=== PATIENT | female | born 1955 | race Caucasian/White ===

== ENCOUNTER → 2020-08-13 13:26 | Outpatient (CLI) | payer MEDICARE, OTHER, SELFPAY ==
--- NOTE | 2020-08-13 13:37 | RAD_ITS ---
STUDY: X-RAY - PELVIS AND RIGHT HIP REASON FOR EXAM: Right hip pain for more than 3 months status post fall. TECHNIQUE: 2 views of the pelvis and hip. COMPARISON: None. FINDINGS: There is a small pelvic phlebolith. Normal bilateral iliac wings, sacroiliac joints and visualized sacrum. Normal bilateral superior and inferior pubic rami. Normal pubic symphysis. Normal bilateral ischial tuberosities. Normal visualized femoral head. Normal acetabulum. Normal hip joint. RAD/HIP, UNI W/ Pelvis 2-3 Views IMPRESSION: Normal x-ray examination of the pelvis and right hip. Electronically Signed: Clifford Hamilton MD at 14:25 EDT Tel , Service support ,
== END ==
PROVIDERS: PCP Family Medicine; Visit Provider Family Medicine
DX: M25.551 Pain in right hip (principal); G89.29 Other chronic pain
CPT/HCPCS: 73502

== ENCOUNTER → 2021-01-28 15:15 | Outpatient (CLI) | payer MEDICARE, OTHER, SELFPAY ==
--- NOTE | 2021-01-28 15:18 | BI_ITS ---
MAMMOGRAPHY - BILATERAL SCREENING REASON FOR EXAM: Female, 65 years old. Routine annual screening examination. PERTINENT HISTORY: Aunt with breast cancer. TECHNIQUE: Digital bilateral breast wagner (3D mammographic acquisition) in the CC and MLO projections. 2-D mediolateral oblique (MLO) and craniocaudad (CC) views of both breasts were obtained. CAD: Full Field Digital Mammography with Computer Added Detection was performed. COMPARISON: Comparison is made with prior abdomen examination dated 11/29/2019. FINDINGS: Breast Composition: There are scattered areas of fibroglandular density. There are no dominant masses or suspicious calcifications. Asymmetry of breast tissue were more breast tissue is seen in the upper outer aspect of the left breast as compared to the right side. Stable well-defined 3 mm nodule in the upper lateral aspect of the right breast. No other significant abnormalities are identified. There has been no significant change since the prior study. BI/SCRN MAMM (CAD)W/WAGNER BILAT IMPRESSION: Stable bilateral screening mammogram. Yearly follow-up mammogram recommended. (A) ASSESSMENT CATEGORY: BIRADS Category 2: Benign. A letter regarding these results will be sent to the patient by the facility within 30 days. Approximately 10% of breast cancers are not detected by mammography. A normal mammogram should not delay biopsy of a clinically suspicious abnormality. [id number] Electronically Signed: Dav Barnett MD at 11:26 EDT , Service support ,
--- NOTE | 2021-01-28 15:21 | BD_ITS ---
STUDY: DUAL ENERGY X-RAY ABSORPTIOMETRY / DXA REASON FOR EXAM: Female, 65 years old. [id number] TECHNIQUE: Bone Mineral Density (BMD) measurements of lumbar spine and bilateral hips were obtained. COMPARISON: None. FINDINGS: Lumbar Spine (L1-L4): g/cm2 (1.105) / T-score (1.1) / Z-score (2.8) Findings are suggestive of normal bone density with a low fracture risk. Left Femur Total: g/cm2 (0.987) / T-score (0.4) / Z-score (1.6) Left Femoral Neck: g/cm2 (0.745) / T-score (-0.9) / Z-score (0.6) Right Femur Total: g/cm2 (0.997) / T-score (0.4) / Z-score (1.7) Right Femoral Neck: g/cm2 (0.781) / T-score (-0.6) / Z-score (0.9) BD/Dexa Bone Density Study IMPRESSION: The patient is considered normal as outlined below according to [employer] Organization (WHO) criteria with a low fracture risk. Reference Information: The T-score is the number of standard deviations above or below the standard which is normal for young adults at their peak bone mineral density. The World Health Organization (WHO) interprets the T-scores as follows: Above -1 Normal bone density Between -1 and -2.5 Osteopenia Equal to / or below -2.5 Osteoporosis As a practical clinical guideline, osteopenia may be graded as follows: Mild -1 through -1.5 Moderate -1.6 through -2.0 Severe -2.1 through -2.4 The Z-score is the number of standard deviations above or below age-matched controls. A Z-score of less than -1.5 would be considered abnormal. References: 1. NIH Osteoporosis and Related Bone Diseases www osteo.org 2. International Society for Clinical Densitometry www iscd.org 3. National Osteoporosis Foundation www nof.org Electronically Signed: Dav Barnett MD at 9:43 EDT , Service support ,
== END ==
PROVIDERS: PCP Family Medicine; Referring Provider Registered Nurse; Visit Provider Registered Nurse
DX: Z78.0 Asymptomatic menopausal state (principal); Z12.31 Encounter for screening mammogram for malignant neoplasm of breast
CPT/HCPCS: 77063; 77067; 77080

== ENCOUNTER → 2022-03-22 | Outpatient (CLI) | payer MEDICARE, OTHER, SELFPAY ==
--- NOTE | 2022-03-22 14:38 | BI_ITS ---
MAMMOGRAPHY - BILATERAL SCREENING REASON FOR EXAM: Female, 66 years old. Routine annual screening examination. PERTINENT HISTORY: Aunt with breast cancer. TECHNIQUE: Digital bilateral breast wagner (3D mammographic acquisition) in the CC and MLO projections. 2-D mediolateral oblique (MLO) and craniocaudad (CC) views of both breasts were obtained. CAD: Full Field Digital Mammography with Computer Added Detection was performed. COMPARISON: Comparison is made with prior study dated 01/28/2021. FINDINGS: Breast Composition: There are scattered areas of fibroglandular density. There are no dominant masses or suspicious calcifications. Stable asymmetric breast tissue with more breast tissue is seen in the upper outer quadrant of the left breast as compared to the right side. Stable well-defined 3 mm nodule in the upper lateral aspect of the right breast. No other significant abnormalities are identified. There has been no significant change since the prior study. BI/SCRN MAMM (CAD)W/WAGNER BILAT IMPRESSION: Stable bilateral screening mammogram. Yearly follow-up mammogram recommended. (A) ASSESSMENT CATEGORY: BIRADS Category 2: Benign. A letter regarding these results will be sent to the patient by the facility within 30 days. Approximately 10% of breast cancers are not detected by mammography. A normal mammogram should not delay biopsy of a clinically suspicious abnormality. [id number] Electronically Signed: Dav Barnett MD at 15:27 EDT ,
== END | disposition home or self-care (01) ==
PROVIDERS: PCP Family Medicine; Visit Provider Registered Nurse
DX: Z12.31 Encounter for screening mammogram for malignant neoplasm of breast (principal)
CPT/HCPCS: 77063; 77067

== ENCOUNTER → 2023-03-24 | Outpatient (CLI) | payer MEDICARE, OTHER, SELFPAY ==
--- NOTE | 2023-03-24 14:00 | BI_ITS ---
MAMMOGRAPHY - BILATERAL SCREENING REASON FOR EXAM: Female, 67 years old. Routine annual screening examination. PERTINENT HISTORY: Aunt with breast cancer. TECHNIQUE: Digital bilateral breast wagner (3D mammographic acquisition) in the CC and MLO projections. 2-D mediolateral oblique (MLO) and craniocaudad (CC) views of both breasts were obtained. CAD: Full Field Digital Mammography with Computer Added Detection was performed. COMPARISON: Comparison is made with prior study March 22, 2022 and January 28, 2021. FINDINGS: Breast Composition: There are scattered areas of fibroglandular density. There are no dominant masses or suspicious calcifications. Stable asymmetry of breast tissue with more breast tissue is seen in the upper-outer quadrant of the left breast as compared to the right side. Stable 3 mm well-defined nodule in the upper lateral aspect of the right breast. Stable small benign-appearing bilateral axillary lymph nodes. No other significant abnormalities are identified. There has been no significant change since the prior study. BI/SCRN MAMM (CAD)W/WAGNER BILAT IMPRESSION: Stable bilateral screening mammogram. Yearly follow-up mammogram recommended. (A) ASSESSMENT CATEGORY: BIRADS Category 2: Benign. A letter regarding these results will be sent to the patient by the facility within 30 days. Approximately 10% of breast cancers are not detected by mammography. A normal mammogram should not delay biopsy of a clinically suspicious abnormality. [id number] Electronically Signed: Dav Barnett MD at 14:55 EDT ,
== END | disposition home or self-care (01) ==
PROVIDERS: PCP Family Medicine; Referring Provider Registered Nurse; Visit Provider Registered Nurse
DX: Z12.31 Encounter for screening mammogram for malignant neoplasm of breast (principal)
CPT/HCPCS: 77063; 77067

== ENCOUNTER → 2024-03-25 | Outpatient (CLI) | payer MEDICARE, OTHER, SELFPAY ==
--- NOTE | 2024-03-25 15:47 | BI_ITS ---
MAMMOGRAPHY - BILATERAL SCREENING REASON FOR EXAM: Female, 68 years old. Routine annual screening examination. PERTINENT HISTORY: Aunt with breast cancer. TECHNIQUE: Digital bilateral breast wagner (3D mammographic acquisition) in the CC and MLO projections. 2-D mediolateral oblique (MLO) and craniocaudad (CC) views of both breasts were obtained. CAD: Full Field Digital Mammography with Computer Added Detection was performed. COMPARISON: Comparison is made with prior examination dated March 24, 2023 and March 22, 2022. FINDINGS: Breast Composition: There are scattered areas of fibroglandular density. There are no dominant masses or suspicious calcifications. Stable asymmetry of breast tissue were more breast tissue is seen in the upper-outer quadrant of the left breast as compared to the right side. Stable 3 mm well-defined nodule in the upper lateral aspect of the right breast. Stable bilateral fat containing axillary lymph nodes. No other significant abnormalities are identified. There has been no significant change since the prior study. BI/SCRN MAMM (CAD)W/WAGNER BILAT IMPRESSION: Stable bilateral screening mammogram. Yearly follow-up mammogram recommended. (A) ASSESSMENT CATEGORY: BIRADS Category 2: Benign. A letter regarding these results will be sent to the patient by the facility within 30 days. Approximately 10% of breast cancers are not detected by mammography. A normal mammogram should not delay biopsy of a clinically suspicious abnormality. [id number] Electronically Signed: Dav Barnett MD at 11:00 EDT ,
--- OUTSIDE RECORDS SUMMARY | 2024-03-25 19:47 | XMS RPT_ITS | CCD ---
Author Organization [facility] CliniSytn Care Team Providers Care Clinical Care Coordinator Name Role Phone Eder Sesay MD Primary Care Provider EDER SESAY Primary Care Unavailable PERLA JOHNSTON Attending Unavailable QUINTON BLISS Attending Unavailable SHAMA, EDER Primary Care Unavailable QUINTON BLISS Attending Unavailable SHAMA, EDER Primary Care Unavailable SHAMA, EDER Primary Care Unavailable LILA LINK Attending Unavailable QUINTON BLISS Attending Unavailable SHAMA, EDER Primary Care Unavailable SHAMA, EDER Primary Care Unavailable VINICIO GÓMEZ Referring Unavailable EDER SESAY Primary Care Unavailable VINICIO GÓMEZ Attending Unavailable QUINTON BLISS Referring Unavailable JIAN ACEVEDO Attending Unavailable SHAMA, EDER Primary Care Unavailable MISBAH WATERS Admitting Unavailable MISBAH WATERS Attending Unavailable SHAMA, EDER Primary Care Unavailable SHAMA, EDER Primary Care Unavailable PERLA JOHNSTON Attending Unavailable Medications Current Medications Medication Drug Class(es) Dates Sig (Normalized) Sig (Original) acetaminophen 500 mg / diphenhydrAMINE hydrochloride 25 mg oral tablet (20 sources) Histamine-1 Receptor Antagonist take 25-500 mg by mouth once as needed diphenhydrAMINE- acetaminophen (Tylenol PM Extra Strength) 25-500 MG per tablet Take 1 tablet by mouth every 24 hours as needed. Active amoxicillin 875 mg / clavulanate 125 mg oral tablet (8 sources) Penicillin-class Antibacterial Start: 07-07-2023 End: 07-17-2023 take 1 tablet by mouth every twelve hours amoxicillin-clav ulanate (Augmentin) 875-125 MG tablet Take 1 tablet by mouth in the morning and 1 tablet in the evening. Do all this for 10 days. 20 tablet 0 07/07/2023 07/17/2023 Active Start: 06-12-2023 End: 06-19-2023 take 1 tablet by mouth twice daily amoxicillin-clavulanate (Augmentin) 875-125 MG tablet Indications: URI with cough and congestion Take 1 tablet by mouth 2 times daily for 7 days. 14 tablet 0 06/12/2023 06/19/2023 aspirin 81 mg delayed release oral tablet (20 sources) Platelet Aggregation Inhibitor, Nonsteroidal Anti-inflammatory Drug take 1 tablet by mouth in the morning aspirin 81 MG EC tablet Take 81 mg by mouth in the morning. Active cholecalciferol 0.05 mg oral capsule (20 sources) Vitamin D cholecalciferol (Vitamin D-3) 50 MCG (1999 UT) capsule Take by mouth. Active dicyclomine hydrochloride 20 mg oral tablet (3 sources) Anticholinergic Start: 2023 End: 2023 take 1 tablet by mouth three times daily as needed for pain dicyclomine (Bentyl) 20 MG tablet Take 1 tablet (20 mg) by mouth 3 times daily as needed (Abdominal pain) for up to 10 days. 20 tablet 0 07/07/2023 07/17/2023 Active docosahexaenoic acid 120 mg / eicosapentaenoic acid 180 mg oral capsule (20 sources) omega-3 (Fish Oi l) 1000 MG capsule Take 3,000 mg by mouth. Active ipratropium bromide 0.042 mg/actuat metered dose nasal spray (20 sources) Anticholinergic Start: 2022 End: 2024 take 2 spray(s) nasal route three times daily ipratropium (Atrovent) 0.06 % nasal spray Indications: Rhinorrhea associated with the Common Cold Administer 2 sprays into each nostril 3 times daily for 7 days. 15 mL 06/01/2022 03/18/2025 Active loratadine 10 mg oral tablet (20 sources) take 1 tablet by mouth in the morning loratadine (Claritin) 10 MG tablet Take 10 mg by mouth in the morning. Active Sodium Sulfate-Mag Sulfate-KCl (Sutab) 5904-416-529 MG tablet (20 sources) Start: 2023 Sodium Sulfate-Mag Sulfate-KCl (Sutab) 8502-836-849 MG tablet Indications: History of colon polyps Please take as directed by GI office for colonoscopy prep. 24 tablet 06/12/2023 Active Start: 06-12-2023 Sodium Sulfate -Mag Sulfate-KCl (Sutab) 8787-675-543 MG tablet Indications: History of colon polyps Please take as directed by GI office for colonoscopy prep. 24 tablet 0 06/12/2023 Active vitamin b12 0.1 mg oral loze nge (20 sources) Vitamin B12 Cyanocobalamin 1 00 MCG lozenge Take by mouth. Active Completed/Discontinued Medications Medication Drug Class(es) Dates Sig (Normalized) Sig (Original) brompheniramine maleate 0.4 mg/ml / dextromethorphan hydrobromide 2 mg/ml / pseudoephedrine hydrochloride 6 mg/ml oral solution (4 sources) alpha-Adrenergic Agonist, Uncompetitive U-gtoxmn-X-aspartat e Receptor Antagonist, Sigma-1 Agonist Start: 06-12-2023 End: 06-22-2023 take 5 mL by mouth three times daily as needed for cough brompheniramine-p seudoephedrine-DM 30-2-10 MG/5ML syrup Indications: URI with cough and congestion Take 5 mL by mouth 3 times daily as needed for cough or congestion for up to 10 days. 120 mL 0 06/12/2023 06/22/2023 iopamidol (Isovue-370) 76 % injection 75 mL (2 sources) Start: 07-07-2023 End: 07-07-2023 iopamidol (Isovue-370) 76 % injection 75 mL losartan potassium 50 mg oral tablet (20 sources) Angiotensin 2 Receptor Sayra Start: 08-19-2022 End: 03-18-2024 take 1 tablet by mouth once daily losartan (Cozaar) 50 MG tablet Indications: Primary hypertension Take 1 tablet (50 mg) by mouth daily. 90 tablet 1 09/13/2023 03/18/2024 Discontinued (Reorder) Start: 01-10-2022 take 1 tablet by helen th in the morning losartan (Cozaar) 50 MG tablet Take 1 tablet by mouth in the morning. 0 01/10/2022 Active naproxen sodium 220 mg oral capsule (20 sources) Nonsteroidal Anti-inflammatory Drug Start: 09-13-2023 End: 03-18-2024 take 1 capsule by mouth twice daily as needed Naproxen Sodium 220 MG capsule Indications: Arthritis of left knee Take 220 mg by mouth 2 times daily as needed (arthralgias). 180 capsule 1 09/13/2023 03/18/2024 Discontinued (Reorder) omeprazole 40 mg delayed release oral capsule (20 sources) Proton Pump Inhibitor Start: 03-13-2023 End: 03-18-2024 take 1 capsule by mouth once daily before breakfast omeprazole (PriLOSEC) [address] capsule Indications: Gastroesophageal reflux disease, unspecified whether esophagitis present Take 1 capsule (40 mg) by mouth every morning (before breakfast). Do not crush or chew. 90 capsule 1 09/13/2023 03/18/2024 Discontinued (Reorder) rosuvastatin calcium 5 mg oral tablet (20 sources) HMG-CoA Reductase Inhibitor Start: 08-19-2022 End: 03-18-2024 take 1 tablet by mouth once daily rosuvastatin (Crestor) 5 MG tablet Indications: Hypercholesterolemia Take 1 tablet (5 mg) by mouth daily. 90 tablet 1 09/13/2023 03/18/2024 Discontinued (Reorder) Start: 01-10-2022 take 1 tablet by helen th in the morning rosuvastatin (Crestor) 5 MG tablet Take 1 tablet by mouth in the morning. 0 01/10/2022 Active 50 ml sodium chloride 9 mg/m l injection (2 sources) Start: 07-07-2023 End: 07-07-2023 sodium chloride 0.9 % bolus 1,000 mL Problems Active Problems Problem Classification Problem Date Documented Date Episodic/Chronic Administrative/socia l admission (2 sources) Persons encountering health services in other specified circumstances; Translations: [Persons encountering health services in other specified circumstances] Onset: 01-19-2024 Episodic Disorders of lipid metabolism (20 sources) Hyperlipidemia; Translations: [Hyperlipidemia, unspecified] Onset: 01-03-2019 Chronic Diverticulosis and diverticulitis (20 sources) Diverticulitis; Translations: [Diverticulitis of intestine, part unspecified, without perforation or abscess without bleeding] Onset: 07-11-2023 Resolved: 09-13-2023 07-07-2023 Chronic Esophageal disorders (8 sources) Gastroesophageal reflux disease; Translations: [Gastro-esophageal reflux disease without esophagitis] Onset: 03-18-2024 03-13-2023 Chronic Essential hypertension (20 sources) Essential hypertension; Translations: [Essential (primary) hypertension] Onset: 01-03-2019 Chronic Immunizations and screening for infectious disease (1 source) Needs influenza immunization; Translations: [Encounter for immunization] 03-13-2023 Episodic Neoplasms of unspecified nature or uncertain behavior (3 sources) Neoplasm of uncertain behavior of skin; Translations: [Neoplasm of uncertain behavior of skin] Onset: 03-13-2024 03-13-2024 Episodic Osteoarthritis (20 sources) Arthritis of left knee; Translations: [Unilateral primary osteoarthritis, left knee] Onset: 08-12-2020 03-11-2022 Chronic Other and unspecified benign neoplasm (2 sources) Senile angioma; Translations: [Hemangioma of skin and subcutaneous tissue] 01-12-2023 Episodic Other and unspecified benign neoplasm (2 sources) Multiple benign melanocytic nevi ; Translations: [Melanocytic nevi of right upper limb, including shoulder] 01-12-2023 Episodic Other and unspecified benign neoplasm (3 sources) History of polyp of colon; Translations: [Personal history of colonic polyps] 06-12-2023 Episodic Other and unspecified benign neoplasm (1 source) Hemangioma of skin; Translations: [Hemangioma of skin and subcutaneous tissue] 01-19-2024 Episodic Other and unspecified benign neoplasm (2 sources) Melanocytic nevi of right upper limb, including shoulder; Translations: [Melanocytic nevi of right upper limb, including shoulder] Onset: 01-19-2024 Episodic Other and unspecified benign neoplasm (2 sources) Melanocytic nevi of trunk; Translations: [Melanocytic nevi of trunk] Onset: 01-19-2024 Episodic Other and unspecified benign neoplasm (2 sources) Melanocytic nevi of left upper limb, including shoulder; Translations: [Melanocytic nevi of left upper limb, including shoulder] Onset: 01-19-2024 Episodic Other and unspecified benign neoplasm (2 sources) Melanocytic nevi of right lower limb, including hip; Translations: [Melanocytic nevi of right lower limb, including hip] Onset: 01-19-2024 Episodic Other and unspecified benign neoplasm (2 sources) Melanocytic nevi of left lower limb, including hip; Translations: [Melanocytic nevi of left lower limb, including hip] Onset: 01-19-2024 Episodic Other and unspecified benign neoplasm (2 sources) Hemangioma of skin and subcutaneous tissue; Translations: [Hemangioma of skin and subcutaneous tissue] Onset: 01-19-2024 Episodic Other connective tissue disease (1 source) Cramp in lower limb; Translations: [Sleep related leg cramps] 03-13-2023 Chronic Other non-epithelial cancer of skin (5 sources) History of malignant neoplasm of skin excluding melanoma; Translations: [Personal history of other malignant neoplasm of skin] Onset: 01-19-2024 01-12-2023 Episodic Other nutritional; endocrine; and metabolic disorders (4 sources) Obesity; Translations: [Other obesity due to excess calories] Onset: 02-17-2021 Chronic Other nutritional; endocrine; and metabolic disorders (20 sources) Obesity caused by energy imbalance; Translations: [Other obesity due to excess calories] Onset: 02-17-2021 03-13-2023 Chronic Other nutritional; endocrine; and metabolic disorders (2 sources) Other obesity due to excess calories; Translations: [Other obesity due to excess calories] Onset: 03-18-2024 Chronic Other nutritional; endocrine; and metabolic disorders (2 sources) Body mass index (BMI) 36.0-36.9, adult; Translations: [Body mass index (BMI) 36.0-36.9, adult] Onset: 03-18-2024 Chronic Other screening for suspected conditions (not mental disorders or infectious disease) (10 sources) Patient encounter status; Translations: [Encounter for screening for malignant neoplasm of colon] Onset: 03-18-2024 03-13-2023 Episodic Other skin disorders (1 source) Lesion of skin of nose; Translations: [Disorder of the skin and subcutaneous tissue, unspecified] Episodic Other skin disorders (3 sources) Seborrheic keratosis; Translations: [Other seborrheic keratosis] 01-12-2023 Episodic Other skin disorders (1 source) Solar lentigo; Translations: [Other melanin hyperpigmentation] 01-19-2024 Episodic Other skin disorders (1 source) Skin lesion; Translations: [Disorder of the skin and subcutaneous tissue, unspecified] 01-19-2024 Episodic Other skin disorders (2 sources) Other seborrheic keratosis; Translations: [Other seborrheic keratosis] Onset: 01-19-2024 Episodic Other skin disorders (2 sources) Other melanin hyperpigmentation; Translations: [Other melanin hyperpigmentation] Onset: 01-19-2024 Episodic Other skin disorders (2 sources) Disorder of the skin and subcutaneous tissue, unspecified; Translations: [Disorder of the skin and subcutaneous tissue, unspecified] Onset: 01-19-2024 Episodic Unclassified (1 source) Obesity, class 2; Translations: [Obesity, class 2] Onset: 03-18-2024 Past or Other Problems Problem Classification Problem Date Documented Da te Episodic/Chronic Abdominal hernia (5 sources) Hiatal hernia; Translations: [Diaphragmatic hernia without obstruction or gangrene] Onset: 09-14-2023 06-12-2023 Episodic Abdominal pain (4 sources) Lower abdominal pain; Translations: [Lower abdominal pain, unspecified] Onset: 07-07-2023 07-07-2023 Episodic Mood disorders (20 sources) Mood disorders Onset: 03-13-2023 03-13-2023 Nausea and vomiting (20 sources) Nausea and vomiting; Translations: [Nausea with vomiting, unspecified] Onset: 06-01-2022 Resolved: 08-17-2022 08-17-2022 Episodic Other and unspecified benign neoplasm (2 sources) Personal history of colonic polyps; Translations: [Personal history of colonic polyps] Onset: 06-12-2023 Episodic Other upper respiratory infections (20 sources) Viral upper respiratory tract infection; Translations: [Acute upper respiratory infection, unspecified] Onset: 06-01-2022 Resolved: 03-10-2023 08-17-2022 Episodic Unclassified (1 source) Obesity, class 2; Translations: [Obesity, class 2] Onset: 03-18-2024 Results Test Name Value Interpretation Reference Range Facility 36on 03-22-2024 36 Message released to patient as written. Pap smear negative, HPV testing still pending Patient's further questions if applicable: none Were all questions from office addressed or relayed to the patient from encounter: Yes Normal [facility] 36on 03-18-2024 36 Lab orders signed. Normal [facility] 36 Patient stopped in asking if she could have her labs done now rather than waiting until this afternoon, since they are fasting. Orders pended. Normal [facility] Office Visiton 03-18-2024 Follow-up visit [id number] Shayla Jara 1955 F Date Provider Department Center 03/18/2024 [id number] HALE [facility] Family History Problem Relation Age of Onset Cervical cancer Mother Arthritis Mother Stroke Mother Cancer Brother Diabetes Mother's Sister Breast cancer Mother's Sister Heart disease Mother's Sister Crohn's disease Neg Hx Colon cancer Neg Hx Family Status - Relation Status Age at Mother Brother Other Notes: leukemia Mother's Sister Neg Hx Level of Service:G0101 HI CA SCREEN;PELVIC/BREAST EXAM Reason for Visit and Comments: Gynecologic Exam [50] Health Maintenance [872] - Derm- already sees a wholesale representative Flu- had done (02/26/2024) 7th Covid- had done 02/26/2024 Mammo-agrees [facility] Follow-up visit [id number] Shayla Jara 1955 F Date Provider Department Center 03/18/2024 [id number] HALE [facility] Family History Problem Relation Age of Onset Cervical cancer Mother Arthritis Mother Stroke Mother Cancer Brother Diabetes Mother's Sister Breast cancer Mother's Sister Heart disease Mother's Sister Crohn's disease Neg Hx Colon cancer Neg Hx Family Status - Relation Status Age at Mother Brother Other Notes: leukemia Mother's Sister Neg Hx Level of Service:G0439 HI PPPS, SUBSEQ VISIT Reason for Visit and Comments: Medicare Annual Wellness Visit Subsequent [677] Health Maintenance [872] - Derm- already sees a wholesale representative Flu- had done (02/26/2024) 7th Covid- had done 02/26/2024 Mammo-agrees Blood Work [[id number]] - Completed this morning Normal [facility] Progress Noteon 03-18-2024 Progress Note [facility] [address] [facility] [address] [facility] [address] Dept: [phone] Dept Loc: [phone] HPI: Shayla Jara is a 68 y.o. female who presents today for her medical conditions/complaints as noted below. Shayla Jara is c/o of Gynecologic Exam and Health Maintenance (Derm- already sees a wholesale representative /Flu- had done (02/26/2024) /7th Covid- had done 02/26/2024/Mammo-agrees) HPI- Shayla Jara presents today for her well female examination. No longer has menstrual cycles- has not had one since her early 50's. States her mother had cervical cancer so she wants to continue receiving pap smears for screening even though she is older than 65. Denies current concerns or worries. Health Maintenance: Performs self breast examinations; denies nipple discharge, nodules, or discoloration. Positive family history of breast cancer- maternal aunt. Last mammogram was - normal findings. Last pap smear was 03/13/23- normal findings. Declines screening for STI's. See ROS for additional information. Past Medical History: Diagnosis Date Acute non-recurrent frontal sinusitis 09/21/2022 Arthritis Basal cell carcinoma 2016 Diverticulitis 07/07/2023 Hiatal hernia History of blood clot in brain 1957 Hyperlipidemia Hypertension Nausea and vomiting 06/01/2022 Viral URI with cough 06/01/2022 Past Surgical History: Procedure Laterality Date COLONOSCOPY N/A 09/14/2023 Performed by Misbah Waters at [facility] ENDOSCOPY DILATION AND CURETTAGE OF UTERUS 1994 EGD COLONOSCOPY (HISTORICAL) 09/14/2023 ESOPHAGOGASTRODUODENOSCO PY and COLONOSCOPY With Possible Biopsy/ Polypectomy/ Coagulation/ Electrocautery/ Endotracheal Intubation/ Anesthesia DR. Waters SKIN BIOPSY 2016 Family History Problem Relation Name Age of Onset Cervical cancer Mother Krissy Bonds Arthritis Mother Krissy Bonds Stroke Mother Krissy Bonds Cancer Brother Khoa [place] Diabetes Mother's Sister Catia Galarza Breast cancer Mother's Sister Catia Galarza Heart disease Mother's Sister Catia Maddi Galarza Crohn's disease Neg Hx Colon cancer Neg Hx Social History Tobacco Use Smoking status: Never Smokeless tobacco: Never Substance Use Topics Alcohol use: Never E-cigarette/Vaping Questions Responses E-cigarette/Vaping Use Never User Current Outpatient Medications Medication Sig Dispense Refill aspirin 81 MG EC tablet Take 81 mg by mouth in the morning. cholecalciferol (Vitamin D-3) 50 MCG (1999 UT) capsule Take by mouth. Cyanocobalamin 100 MCG lozenge Take by mouth. diphenhydrAMINE-acetamin ophen (Tylenol PM Extra Strength) 25-500 MG per tablet Take 1 tablet by mouth every 24 hours as needed. ipratropium (Atrovent) 0.06 % nasal spray Administer 2 sprays into each nostril 3 times daily for 7 days. (Patient taking differently: Administer 2 sprays into each nostril as needed for rhinitis.) 15 mL 0 loratadine (Claritin) 10 MG tablet Take 10 mg by mouth in the morning. losartan (Cozaar) 50 MG tablet Take 1 tablet (50 mg) by mouth daily. 90 tablet 1 Naproxen Sodium 220 MG capsule Take 220 mg by mouth 2 times daily as needed (arthralgias). 180 capsule 1 omega-3 (Fish Oil) 1000 MG capsule Take 3,000 mg by mouth. omeprazole (PriLOSEC) [address] capsule Take 1 capsule (40 mg) by mouth every morning (before breakfast). Do not crush or chew. 90 capsule 1 rosuvastatin (Crestor) 5 MG tablet Take 1 tablet (5 mg) by mouth daily. 90 tablet 1 Sodium Sulfate-Mag Sulfate-KCl (Sutab) 9688-963-895 MG tablet Please take as directed by GI office for colonoscopy prep. 24 tablet 0 No current facility-administered medications for this visit. No Known Allergies Health Maintenance Topic Date Due Diabetes Screening 03/15/2024 Mammogram 03/24/2024 Hepatitis C Screening 09/12/2024 (Originally 08/09/1973) Derm Melanoma Skin Check 09/12/2024 Depression Screening 03/17/2025 Medicare Annual Wellness (AWV) 04/17/2025 Lipid Panel 03/15/2028 Colorectal Cancer Screening 09/13/2028 DTaP/Tdap/Td Vaccines (4 - Td or Tdap) 04/09/2032 RSV Immunization aged 60 or older Completed Influenza Vaccine Completed Pneumococcal Vaccine: 65+ Years Completed Zoster Vaccines Completed Bone Density Scan Completed COVID-19 Vaccine Completed RSV Immunization under 20 Months Aged Out HIB Vaccines Aged Out Hepatitis B Vaccines Aged Out IPV Vaccines Aged Out Hepatitis A Vaccines Aged Out Meningococcal Vaccine Aged Out Rotavirus Vaccines Aged Out HPV Vaccines Aged Out Subjective: Review of Systems Respiratory: Negative for shortness of breath. Cardiovascular: Negative for chest pain. Genitourinary: Negative for dysuria, hematuria, pelvic pain, vaginal bleeding, vaginal discharge and vaginal pain. Skin: Negative for color change, pallor, rash and wound. Objective: BP 120/84 Pulse 86 Ht 5' 2 (1.575 m) Wt 198 lb 9.6 oz (90.1 kg) SpO2 96 (more content not included)... Normal [facility] Progress Note Patient verified by last name and . Normal [facility] Progress Note [facility] [address] [address] Visit type: Established Patient Reason for Visit: Medicare Annual Wellness Visit Subsequent, Health Maintenance (Derm- already sees a wholesale representative /Flu- had done (02/26/2024) /7th Covid- had done 02/26/2024/Mammo-agrees), and Blood Work (Completed this morning ) Assessment and Plan 1. Medicare annual wellness visit, subsequent - Encouraged a healthy diet low in cholesterol and saturated fats. - Encouraged regular exercise. 2. Hypercholesterolemia - rosuvastatin (Crestor) 5 MG tablet; Take 1 tablet (5 mg) by mouth daily., Starting 03/18/2024, Normal - Stable with Rosuvastatin. Will continue current treatment plan. 3. Primary hypertension - losartan (Cozaar) 50 MG tablet; Take 1 tablet (50 mg) by mouth daily., Starting Mon03/18/2024, Normal - Stable with Losartan. Will continue current treatment plan. 4. Class 2 obesity due to excess calories without serious comorbidity with body mass index (BMI) of 36.0 to 36.9 in adult - Encouraged continuation of a healthy diet and regular exercise. 5. Arthritis of left knee - Naproxen Sodium 220 MG capsule; Take 220 mg by mouth 2 times daily as needed (arthralgias)., Starting 03/18/2024, Normal - Stable. Follow up with specialist as directed. 6. Gastroesophageal reflux disease, unspecified whether esophagitis present - omeprazole (PriLOSEC) [address] capsule; Take 1 capsule (40 mg) by mouth every morning (before breakfast). Do not crush or chew., Starting Mon03/18/2024, Normal - Stable with Omeprazole. Will continue current treatment plan. Follow up in about 6 months (around 09/16/2024) for medication maintenance. Subjective HPI- Shayla presents today for her annual Medicare physical. Had her fasting blood work drawn prior to her appointment today so she does not need this done now. Hyperlipidemia: Continues to take Rosuvastatin daily as prescribed. Denies myalgias. Levels were stable when checked in February 2023. CHOLESTEROL, TOTAL <200 mg/dL 134 139 HDL CHOLESTEROL > OR = 50 mg/dL 52 50 56 R 53 R TRIGLYCERIDES <150 mg/dL 146 120 116 124 LDL-CHOLESTEROL mg/dL (calc) 59 68 CM CHOL/HDLC RATIO <5.0 (calc) 2.6 2.8 NON HDL CHOLESTEROL <130 mg/dL (calc) 82 89 CM Hypertension: Takes her Losartan daily. Does not check her blood pressure at home. Her BP is stable today 120/84. Obesity: Has been doing water aerobics three times per week. Strives for a healthy diet but knows she can work on moderation and making healthier food choices. Arthritis: Feels symptoms are stable. Has been following up with Dr. Albert Sesay in [place]. Will take an Extra Strength Tylenol or Naproxen and this helps if she needs it. GERD: Takes Omeprazole daily and feels symptoms are well controlled. Denies abdominal pain or dark black tarry stools. Health Maintenance: Declines screening for Hepatitis C. Fully vaccinated for pneumonia. Vaccinated for COVID-19 (Moderna) x7 with most recent dose on 02/24/24. Tdap current: 04/09/22. Colonoscopy current: 09/14/23. DEXA: 01/28/21. Is fully vaccinated for shingles. Mammogram: 03/24/23- would like an order placed for this year's imaging- will place at [facility] today. Sees dermatology for a skin cancer screening examination- last saw last week. Flu vaccine current: 02/24/24. I have reviewed and reconciled the medication list with the patient today. Current Outpatient Medications Medication Sig Dispense Refill aspirin 81 MG EC tablet Take 81 mg by mouth in the morning. cholecalciferol (Vitamin D-3) 50 MCG (1999) capsule Take by mouth. Cyanocobalamin 100 MCG lozenge Take by mouth. diphenhydrAMINE-acetamin ophen (Tylenol PM Extra Strength) 25-500 MG per tablet Take 1 tablet by mouth every 24 hours as needed. ipratropium (Atrovent) 0.06 % nasal spray Administer 2 sprays into each nostril 3 times daily for 7 days. (Patient taking differently: Administer 2 sprays into each nostril as needed for rhinitis.) 15 mL 0 loratadine (Claritin) 10 MG tablet Take 10 mg by mouth in the morning. omega-3 (Fish Oil) 1000 MG capsule Take 3,000 mg by mouth. Sodium Sulfate-Mag Sulfate-KCl (Sutab) 5015-508-086 MG tablet Please take as directed by GI office for colonoscopy prep. 24 tablet 0 losartan (Cozaar) 50 MG tablet Take 1 tablet (50 mg) by mouth daily. 90 tablet 1 Naproxen Sodium 220 MG capsule Take 220 mg by mouth 2 times daily as needed (arthralgias). 180 capsule 1 omeprazole (PriLOSEC) [address] capsule Take 1 capsule (40 mg) by mouth every morning (before breakfast). Do not crush or chew. 90 capsule 1 rosuvastatin (Crestor) 5 MG tablet Take 1 tablet (5 mg) by mouth daily. 90 tablet 1 No current facility-administered medications for this visit. Medications Discontinued During This Encounter Medication Reason rosuvastatin (Crestor) 5 MG tablet Reorder omeprazole (PriLOSEC) [address] capsule Reorder losartan (Co (more content not included)... [facility] 36on 03-15-2024 36 ----- Message from Mingo Johnston PA-C sent at 03/15/2024 3:17 PM EDT ----- Please call patient to let her know that both skin biopsies came back as BCC which is a treatable type of skin cancer called BCC. Please place referral to Dr. Lee for Mohs to both sites. [place] [id number] Called patient and informed her of results [place] [phone] S: Pt calling back after missing a call from dermatology about biopsy results. B: Pt had a biopsy on 03-13-2024. A: The following message was given to the patient. R: Advised pt to call back with new/worsening symptoms. She verbalized understanding. Reason for Disposition [1] Follow-up call to recent contact AND [2] information only call, no triage required Protocols used: Information Only Call - No [facility] ----- Message from Mingo Johnston PA-C sent at 03/15/2024 3:17 PM EDT ----- Please call patient to let her know that both skin biopsies came back as BCC which is a treatable type of skin cancer called BCC. Please place referral to Dr. Lee for Mohs to both sites. Normal [employer] [facility] Tissue examOrdered By: Jw Leyva on 03-15-2024 Case Report Surgical Pathology Case: [id number] Authorizing Provider: Perla Johnston PA-C Collected: 03/13/2024 1452 [facility] Re[facility]: 03/14/2024 1123 [facility] Pathologist: Franko Leyva MD Specimens: A) - DERM, Skin, Right Taoist hairline B) - DERM, Skin, Left Parietal Scalp [facility] Phone: Clinical Information q8zajIBnTKBbnRKhUIufJRyk eaAqLKZskRTaP9TbkhsnMOqw AV3wST1cdOxzzGIwlVPuXDAw DfGwf8npe117iKMsq3ybERXV KNprQLLSCYo4jYvuT87ai2D2 ZawuQ9heGMHfAHmvUYNvNSza tXQoCMf8HACiiWRasiIuHqCe OYHiqCTquCV0SHWyAO2yawif NRlgLUsgQGQcnsD5UDLsbBYp G9QrDRSrMI8tsbirPSI7BCqi GSKgTZA6PuXvTTBpn4Kqudy4 MjBccGFyZFxwbGFpblxmczIw NYQcWKYRVT1mwREtzZSzQiA2 xxYaxlWpyU0yErSvUNQnu8Uz d6Snz0brneJcCZE3IX35NChF M6ThIDObZ20cRoJUqSsgYI04 mIDMH6ZwvTCkSPQsMphbQIAl QMYyZDCsVIJsxCPmBJ4wpO20 kfXolMcjhRZdNDB4iIQzCBhp YXJccGFyfQ== [facility] Work Phone: Disclaimer x7sktORtXLOssBMkLmPf MDAw DAKvp4cwGEDkzXSdHgUnKwPg OlLnUrxwqOSeRAWcBhCuj7rq i269lVNua0rwZGHkZcJ7mBIm RRAjX43lZAHIK769POYzIPqa u7cxm9PyWRFpmMRll1D7TGWF LFdlEATERLa4vTfcL09tw3J6 VcixJ1muTIYkYKNwU4PyGF4a EDHdYku2ERB3CAZ8SOUbIJZm J0PwYT8fDSJxeLOnGKr9u5ec pKcpKDZzJXD1k4pvEFbiqlCm PW7vdp0otVs6t8jwtpTqPQAe TBFdqPWKIQEiQ9MozXgyEr7g sKw1hUtrVdytWOL3Lsf2WS1u eh17yyx7wDshLYWklkgoPrK2 DLfxHESriobjANi8COpqFSLk bBK0XFSowKKkA0QzLJFbGW6y dgo6IKR8DFkcOPFfJjP4PLQe eZNhNQRmtWnsTWshb701HPJ7 CgBkFN8hQ2Esv0C3vF8apZQq VHQwdHWcMwLuUILrlq2lmORv HJnsa3FpXOQ9crP1pLNuzXUz YRPcXJ35Kapai1YhKpsuKXP3 QCKxcgNyo8Lrr3lkXkYovtDp P9ojJ9EiVPHvRTTjDREsQmEl deSmu3Dls1HzfAXghHs9b7oz HWOjKJIszBqdh5vtMGG8ZHAf Q0C8zMRny1oxQWdjWTAgyAZ1 jvQ6RSFdsRPjE3WaiV7sSXJz PV4swwd4v5yuFOX5RMjqVIOq LrL4iwS1CEWypNItOWJdvSpt TPozp886ZDH2NzWnMOBnw7Jf I9UnbIplY26zjPmqK28nCONf pSbqmT6ttTwyuL2qHdBgPaJc NFxxbFxwbGFpblxmMVxmczE2 VIxmwblzVNTyCHfdC8tgAsPu CLDotFbgWCznt0LkHNMkJOTt GGPjGXpbA8dzaE9lrnvrKXfc ABQyeZjwo1pbYuCbwYT5QD0t tpJkHPHybGkzszS0wxMxoSom bW9ldG1zvIqhgV2erZTmaVH6 cnksIGluIHNpdHUgaHlicmlk bVgpkZqtgjsioX1wBZW9rDVx KNU2nFHkJNAtMDNiPXFldK12 lj5wcRYchtXfR6OvO3AqvJWh lHevUltxcUGueQYbBc5cwZQy JZ1lNRJvlZOzM1OrAO1wBIHh clxwYXIgVGhlIHVzZSBvZiBv qqZdy0KpeY7cUSPmPISwDK56 suChnnA5xBNsZHMxxdKuhPQp dHMgaXMgcmVndWxhdGVkIGFz WGEkGVLeLNo2wEMtz3MvZ9sx oJEzgjRkJ4HcwITnKFYHAQ2a NKslw9YueZSkyLRig4VlADWo VZIjcY6oNFWmKK8dXZIoNUvn JNJcejCxyc9jdkGzGGIoUYQe J7IhuqwsjExnffSuKOXlba1y jnFnYKH4XZMqBZRvmHnjhSIn mCYbWVHcquN4c8PdSLMks7Ci X0AnjGGxJDYrqIGdSVT4t0Lz dD2rIBdwdTRqNYQbSF6diKWo ZWVuIGNsZWFyZWQgYnkgdGhl GFFPJYGar3AvQR1aSGBarQhp ABRykF7oh7XsEWEtd91uYBYR QSkuIFRoZSBGREEgaGFzIGRl dGVybWluZWQgdGhhdCBzdWNo IPByFJTgTM0jQYKaljRboEPf o4NenHTtcdGsy7YmszKwXOBx TPT4ShXvtAVyKSJucyKMsZas bI7rwV5rw7NssB8uVFfbpmLk iAMkKr4pqKBfXN1iZNIeheTi MhiqXUUuXtToAXBkLTEgf6D1 PH0fQEVhdx4yqafpjNPpgM0e hMQclhUcWH9pCI2cF3G2vMBq YFHfyjOiu4qdWRy2rKSpJTUx lYUmeAOpZcczNQW3HNYuSLJ6 onCduzJfXAPmwXdxyNZ3jGJw TCIvFGPsCWQhQU96P7Ekd6Cc A6tjXX33QVSnUGJsEZZgvcFx o2uvILHnf3ioDMKleXUrY2Gn RBLdiLYwkcnwEwPzYHW7XIDc WTH9kCMmPVKdJ7AmfBExjCGb bJ04VR7wxUH5TB6dMHN6HHcj yD5fJkBWrF38nz5jtHP5b2Pg XK6lO8XeYHVrd5F8bwAaOMQy RT5jxKRuDQVvQXQjrRpjLDMc ZCBvbiBkZWNhbGNpZmllZCB0 jXJukQEbVcXSKOY2iPJhXHFe s8LcXHXiYMRwebEpflVeTKKy PPQ4oJRlYKYpvYHcs70hS9n2 MU0woAfdJFYxdITdJIXxo5Pj jDOejDl9lOZhToVvGKohDXVl XBmscEb8zZF9NP6zFFKzZ4Lw J0shnTFqQSIpPAEuzWIcfi2g cGFyfQ== [facility] Work Phone: Gross Description h4gklPJoVNGjrVUtHHez NFxh ehWkCQHyfCArX9NepxmjOEju YK3eQV3jcAezuFOzzBKmSEHm UxLuv5fqb168zDHac2jfCTXW DWtoBHMARHu0uNszE41fx5Y2 PgtbO32cxDHwCHW1EGLsGDKa hUDgEDWrMEU5FNZfrDFwZ3ex OQTbLW2iybyjURuqTFueMHIe lGV2STQenECrD7HuMDQcQMrp DYNujtr6MzMeMz1unLWtsZul MFxwYXJkXHBsYWluXGZzMjAg SR0gjOFdVQLqF2KcavUiVLkq RVAeje4ksQeiKScoIePaAGAb AwVaM0r3EJBjfZBvCQXbXFwu bGluZSIgaXMgYSAxLjEgeCAx TDlcXY6wQXCeCBOjSZJqOUGt y9UeqQ5iVHBkOUMgpHYpMNEi YDnoSLdsD2p5WFEluixap6vb K7f6pHbjvzWwa7MtWlDePQvl IHNwZWNpbWVuIGlzIHRyaXNl T8GvDMTnguMbd7JbkQc3kLYc UNdqEB6mXQWyTPBfXOW1WI7d EIQdlvrhHHWeVf0kmDQxXWOz P3UpfvPsLGutKOGcmu9ofYlc IGxhYmVsZWQgImxlZnQgcGFy rCX5WLrvn0CvxYObQAmmQPGh TM45ORlmPP34IJyeBV3mAKFy GZXmRNAiZFBek0MvxU9xWVRh ZSBzdXJmYWNlIGlzIHdoaXRl OWOzptmzSUPupRefvMm9VFAl uVZjER1sOPAlYBJyqYEawU5e ghOxjaXmiHDdZ4NnVKApplRh w8DehOn5eZEnJBezXC0xYJOc ROMrEUS4GM8gQPunQGS3 [facility] Phone: Pathology report final diagnosis Narrative y4eocKDiXGFqdKScNNzhQOyj pbSiMSXdyZSpT8HmkyxxDPkd NB6eTM2jbSvyrUJecRCnJPVh BqTgn7yez859tXClv7cmVTIU DFhvZMWLTHo4yWqkQ22cg2K8 JfakL75qdYDaZST8NSPjTJFf aZMmEEQhKQA0VSBjyORzO7qe RDNtAG0vsewqRWpxOHclVGLt fBC8ANAxcCReP6QmRGJvUUqp YQHylqo3BsKmQp7mcKAgxPdm MFxwYXJkXHBsYWluXGZzMjBc dLKoKXBuLRSZy1bnFNKjyXro eQY2HV8wkYSakAObujdbxqY4 SBTzrna0XMPzWeJJhOMukoYk U2itbOVeBNBeiLFyWNccYOUf unWhqu7nHKdmPBJvdMLfVNZi BGNfCGTZf6soDJHaCRD1IPTv cmlldGFsIHNjYWxwOlxwYXJc dNTmCGYqL5SrQGUieXVlLGcf XyIdHQwfT8QxgYQkPQPkbA5k bWFccGFyfQ== [facility] Phone: [facility] Phone: Lesion biopsyon 03-13-2024 Type of biopsy: tangential Informed consent: discussed and consent obtained Timeout: patient name, date of , surgical site, and procedure verified Procedure prep: Patient was prepped and draped in usual sterile fashion Prep type: Isopropyl alcohol Anesthesia: the lesion was anesthetized in a standard fashion Anesthetic: 1% lidocaine w/ epinephrine 1-100,000 buffered w/ 8.4% NaHCO3 Instrument used: DermaBlade Hemostasis achieved with: electrodesiccation Outcome: patient tolerated procedure well Post-procedure details: sterile dressing applied and wound care instructions given Dressing type: pressure dressing and bandage [facility] Type of biopsy: tangential Informed consent: discussed and consent obtained Timeout: patient name, date of , surgical site, and procedure verified Procedure prep: Patient was prepped and draped in usual sterile fashion Prep type: Isopropyl alcohol Anesthesia: the lesion was anesthetized in a standard fashion Anesthetic: 1% lidocaine w/ epinephrine 1-100,000 buffered w/ 8.4% NaHCO3 Instrument used: DermaBlade Hemostasis achieved with: electrodesiccation Outcome: patient tolerated procedure well Post-procedure details: sterile dressing applied and wound care instructions given Dressing type: pressure dressing and bandage [facility] Office Visiton 03-13-2024 Follow-up visit [id number] Shayla Jara 1955 F Date Provider Department Center 03/13/2024 PERLA DOU[facility]AS [facility] DE None Family History Problem Relation Age of Onset Cervical cancer Mother Arthritis Mother Stroke Mother Cancer Brother Diabetes Mother's Sister Breast cancer Mother's Sister Heart disease Mother's Sister Crohn's disease Neg Hx Colon cancer Neg Hx Family Status - Relation Status Age at Mother Brother Other Notes: leukemia Mother's Sister Neg Hx Level of Service:24335 HI OFFICE/OUTPATIENT ESTABLISHED MOD MDM 30 MIN (25) Reason for Visit and Comments: Skin Lesion [[id number]] - ZAKI 01/19/2024 with Perla Johnston PA-C (VIKAHS). [facility] Progress Noteon 03-13-2024 Progress Note DATE OF SERVICE: 03/13/2024 PATIENT NAME: Shayla Jara : 1955 AGE: 68 y.o. CLINIC NUMBER: [id number] Visit type: Established patient Chief Complaint Patient presents with Skin Lesion ZAKI 01/19/2024 with Perla Johnston PA-C (VIKASH). Subjective HISTORY OF PRESENT ILLNESS: This is a 68 y.o. female who presents for biopsy of skin lesion; last seen 01/19/2024. C/o-skin lesion located on the right yazidism x 2 months. Denies itching, bleeding, pain. Denies changes in size, shape, color. Denies previous treatment. Are you , trying to become or ? No History of pacemaker/ defibrillator? No History of HIV/ Hep C? No Allergies to Lidocaine, Epinephrine, Latex or Adhesive? No Review of Systems There were no vitals filed for this visit. PHYSICAL EXAM GENERAL APPEARANCE:?Alert & oriented x3, pleasant. Well developed, well nourished. PSYCH: appropriate mood and affect DERMATOLOGY: (all measurements are in cm, unless otherwise noted) 1. Sweeney angioma (2) Generalized, Right Abdomen (side) - Lower Bright red vascular papule(s) Reassured and educated, benign finding. 2. Neoplasm of uncertain behavior of skin (2) Right Taoist hairline 1 cm erythematous shiny macules Lesion biopsy Type of biopsy: tangential Informed consent: discussed and consent obtained Timeout: patient name, date of , surgical site, and procedure verified Procedure prep: Patient was prepped and draped in usual sterile fashion Prep type: Isopropyl alcohol Anesthesia: the lesion was anesthetized in a standard fashion Anesthetic: 1% lidocaine w/ epinephrine 1-100,000 buffered w/ 8.4% NaHCO3 Instrument used: DermaBlade Hemostasis achieved with: electrodesiccation Outcome: patient tolerated procedure well Post-procedure details: sterile dressing applied and wound care instructions given Dressing type: pressure dressing and bandage Specimen A - Tissue exam Differential Diagnosis: Rule out BCC Check Margins: No Left Parietal Scalp 1 cm erythematous shiny macules Lesion biopsy Type of biopsy: tangential Informed consent: discussed and consent obtained Timeout: patient name, date of , surgical site, and procedure verified Procedure prep: Patient was prepped and draped in usual sterile fashion Prep type: Isopropyl alcohol Anesthesia: the lesion was anesthetized in a standard fashion Anesthetic: 1% lidocaine w/ epinephrine 1-100,000 buffered w/ 8.4% NaHCO3 Instrument used: DermaBlade Hemostasis achieved with: electrodesiccation Outcome: patient tolerated procedure well Post-procedure details: sterile dressing applied and wound care instructions given Dressing type: pressure dressing and bandage Specimen B - Tissue exam Differential Diagnosis: Rule out BCC Check Margins: No Biopsy recommended. Patient expresses understanding and is in agreement with the plan. Biopsy (x 1) obtained today. Patient educated that we will call with the biopsy results within 2 weeks. Care instructions reviewed and written instructions provided to patient. 3. Seborrheic keratosis (3) Left Breast, Right Breast, Right Upper Back Campa-brown waxy papule(s) and plaque(s) Reassured that this is a benign lesion and does not require any treatment. Educated that if the lesion changes color, becomes larger, bleeds, becomes bothersome or painful then it should be reevaluated. Patient expresses understanding and is agreeable to plan. 4. History of nonmelanoma skin cancer Nose No evidence of recurrence on exam today. Educated on signs of skin cancer, skin cancer causes, prevention, and risk of developing skin cancers in the future. Sun protection measures reviewed recommending 30 SPF or greater and should do monthly self skin exams and annual full skin exam. 5. Encounter for skin care SKIN TYPE: I Educated on signs of skin cancer, skin cancer causes, prevention, and risk of developing skin cancers in the future. Sun protection measures reviewed recommending 30 SPF or greater and should do monthly self skin exams and annual full skin exam. On this date, I have spent 30 minutes reviewing previous notes, test results and face to face with the patient discussing the diagnosis and importance of compliance with the treatment plan as well as documenting on the day of the visit. I spent a total of 30 minutes on the day of the visit. [x]Preparing to see the patient [x]Obtaining/reviewing separately obtained history [x]Performing exam/evaluation [x]Counseling patient/family/caregiver [x]Ordering medication/tests/procedu res []Referring and communicating with other health professionals [x]Documenting clinical information in the EMR []Independently interpreting results and communicating results to patient/family/caregiver [x]Care coordination Follow up in about 10 months (around 01/11/2025). Perla Johnston PA-C 03/20/24 2:44 PM REFERRING MD: [facility] Office Visiton 01-19-2024 Follow-up visit [id number] Shayla Jara 1955 F Date Provider Department Center 01/19/2024 [address] [facility] None Family History Problem Relation Age of Onset Cervical cancer Mother Cancer Brother Diabetes Mother's Sister Breast cancer Mother's Sister Heart disease Mother's Sister Crohn's disease Neg Hx Colon cancer Neg Hx Family Status - Relation Status Age at Mother Brother Other Notes: leukemia Mother's Sister Neg Hx Level of Service:72927 HI OFFICE/OUTPATIENT ESTABLISHED LOW MDM 20 MIN Reason for Visit and Comments: Skin Check [779] - LV 01/12/2023 ([facility]) [facility] PATINSon 01-19-2024 PATINS SUNSCREEN AND SUN PROTECTION Ultraviolet radiation from the sun is the main cause of skin cancer as well as sun damage (brown spots, wrinkles and more). Your best protection from the sun is to stay out of the mid-day sun (from 10am-3pm), seek shade, and cover your skin with clothing and hats. Wear a swim shirt when swimming. Sunscreen should be used to areas that aren't covered, including lips. We prefer sunscreens that are SPF 30 or higher. Sunscreens should be applied liberally and reapplied every 2 hours, more often when swimming or sweating. If you will be sweating or swimming, choose a sunscreen that is labeled Water resistant 80 minutes . This is the highest waterproof rating from the FDA. Use a moisturizer with sunscreen daily to protect your sun-exposed areas such as the face, neck and backs of hands. Some drugstore brands to try are QualMetrix Defense Daily Moisturizer (PureScreen) SPF 50 or CeraVe Face Lotion Invisible Zinc SPF 50. [place] GROSSMAN products are slightly more expensive and must be ordered through [employer] or the [employer] website. We like their UV Daily or UV Clear. For body sunscreen when doing outdoor activity, some to try include Sun Bum products, Aveeno Baby Continuous Protection SPF 50 for sensitive skin, Blue Lizard SPF 30+, All Good sport sunscreen SPF 50, or Banana Boat Simply Protect Sport Sunscreen lotion spf 50. Sticks, gels, and sprays are also great and can be used for areas of the body that are difficult to cover with lotion. If you have brown spots such as melasma or lentigenes, choose a tinted sunscreen. There are ingredients in tinted sunscreens (iron oxide) that do a better job blocking certain types of light that cause brown spots. We like [place] GROSSMAN UV Clear tinted or [place] GROSSMAN UV Daily tinted, which can be ordered on [employer] or from [employer]. You can also try Coola Mineral Face Matte Moisturizer SPF 30 or [place] Gold Botaniacal Suncreen SPF 50 Tinted Face Mineral Lotion. There are two types of sunscreens: Chemical sunscreens, such as those that contain the ingredients avobenzone and oxybenzone, and Physical sunscreens, such as those that contain Zinc oxide and Titanium dioxide. Chemical sunscreens absorb light and absorb into the skin. They must be applied 15 minutes before sun exposure. Physical sunscreens reflect the light and are not absorbed into the skin. They should be applied 5 minutes before sun exposure. Some patients worry about the effects of sunscreens that are absorbed into the skin. If you are worried about this, use the physical (zinc/titanium sunscreens)- look at the label before buying. There is lots of scientific evidence that sunlight causes cancer, but there is no direct evidence that sunscreens are harmful. However, the FDA has asked for further study of the chemical sunscreens to make sure they do not have any health effects on humans. [facility] Progress Noteon 01-19-2024 Progress Note DATE OF SERVICE: 01/19/2024 PATIENT NAME: Shayla Jara : 1955 AGE: 68 y.o. CLINIC NUMBER: [id number] Visit type: Established patient Chief Complaint Patient presents with Skin Check LV 01/12/2023 ([facility]) Subjective HISTORY OF PRESENT ILLNESS: Shayla Jara is a 68 y.o. who presents to the office for a check up. Patient's last FSE was done on 01/12/2023. Patient has a history of BCC in 2014. Patient denies any new, changing, itching or bleeding lesions. Patient has ?h/o of ATN. Patient has ?h/o of AKs. Patient has? personal h/o skin cancer. BCC Nose treated by Dr. Jatinder Cantu in [place] 2014 Patient has no?family h/o melanoma. Are you or ? No History of pacemaker/defibrillator? No History of HIV/Hep C? No Allergies to Lidocaine, Epinephrine, Latex or Adhesive? No Social History:Occupation: Retired. Born/raised in [place]. Outdoor sports: yes. 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 Patient does use additional sun protection measures. Review of Systems Dermatology: as per HPI, otherwise negative There were no vitals filed for this visit. PHYSICAL EXAM: GENERAL APPEARANCE:?alert and oriented x3, well developed and well nourished. PSYCH: appropriate mood and affect DERMATOLOGY: 1. Multiple benign melanocytic nevi of both upper extremities, both lower extremities, and trunk Scattered uniform campa/brown nevoid papules and macules Reassured that this is a benign lesion and does not require any treatment. Educated that if the lesion changes color, becomes larger, bleeds, becomes bothersome or painful then it should be reevaluated. Patient expresses understanding and is agreeable to plan. 2. Hemangioma of skin Bright red vascular papule(s) Reassured and educated, benign finding. 3. Seborrheic keratosis (4) Generalized, Left Breast, Right Breast, Right Upper Back Campa-brown waxy papule(s) and plaque(s) Reassured that this is a benign lesion and does not require any treatment. Educated that if the lesion changes color, becomes larger, bleeds, becomes bothersome or painful then it should be reevaluated. Patient expresses understanding and is agreeable to plan. 4. Solar lentigo Light brown well-circumscribed macule(s) Educated and reassured, benign finding secondary to sun exposure. Patient educated on the proper use of sunscreen, SPF, and how often to reapply. Recommend use of OTC mineral sun block, like Neutrogena or [place] Posay. Patient advised to look for zinc or titanium as the active ingredient(s). 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 Patient advised to perform self-skin checks and call for follow up appointment if any new or concerning lesions detected. 5. Skin lesion Right Temporal Scalp 6mm erythematous macule with one small 2mm scab Pt to monitor right hairline yazidism region (consistent with burn from curling iron or superficial BCC on exam today). If changes noted or unresolved in 2 weeks, pt to return for further evaluation and management. 6. History of nonmelanoma skin cancer Nose No evidence of recurrence on exam today. Educated on signs of skin cancer, skin cancer causes, prevention, and risk of developing skin cancers in the future. Sun protection measures reviewed recommending 30 SPF or greater and should do monthly self skin exams and annual full skin exam. 7. Encounter for skin care SKIN TYPE: I Educated on signs of skin cancer, skin cancer causes, prevention, and risk of developing skin cancers in the future. Sun protection measures reviewed recommending 30 SPF or greater and should do monthly self skin exams and annual full skin exam. Follow up in about 1 year (around 01/18/2025) for FSE. Perla Johnston PA-C 01/19/24 3:14 PM REFERRING MD: No referring provider defined for this encounter. Normal [facility] Nursing Noteon 09-14-2023 Nursing Note Discharge instructio ns reviewed with patient and daughter, both verbalize understanding. Patient ambulatory to/from BR with steady gait, able to dress self. Assisted into wheelchair and out to car free of injury or complaint. Normal [facility] Nursing Note Patient declines PO fluids/crackers. Denies pain/nausea. Family bedside. 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 Patient is waking up on room air. NO respiratory distress noted. Monitor on, Rn bedside. Safety maintained. Family and surgeon bedside. Normal [facility] Office Visiton 09-13-2023 Follow-up visit [id number] Shayla Jara 1955 F Date Provider Department Center 09/13/2023 [id number] Family History Problem Relation Age of Onset Cervical cancer Mother Cancer Brother Diabetes Mother's Sister Breast cancer Mother's Sister Heart disease Mother's Sister Crohn's disease Neg Hx Colon cancer Neg Hx Family Status - Relation Status Age at Mother Brother Other Notes: leukemia Mother's Sister Neg Hx Level of Service:25758 HI OFFICE/OUTPATIENT ESTABLISHED MOD MDM 30 MIN Reason for Visit and Comments: Medication Check [[id number]] - Having colonoscopy Hypertension [140380] Hyperlipidemia [182] Health Maintenance [872] - Hep C- declines [facility] Progress Noteon 09-13-2023 Progress Note 09/13/2023 Shayla Jara (: 1955) is a 68 y.o. female , Established patient, here for evaluation of the following chief complaint(s): Medication Check (Having colonoscopy ), Hypertension, Hyperlipidemia, and Health Maintenance (Hep C- declines ) ASSESSMENT/PLAN: 1. Hypercholesterolemia - rosuvastatin (Crestor) 5 MG tablet; Take 1 tablet (5 mg) by mouth daily., Starting Mon09/13/2023, Normal - Stable with Rosuvastatin. Will continue current treatment plan. 2. Primary hypertension - losartan (Cozaar) 50 MG tablet; Take 1 tablet (50 mg) by mouth daily., Starting Mon09/13/2023, Normal - Stable with Losartan. Will continue current treatment plan. 3. Class 2 obesity due to excess calories without serious comorbidity with body mass index (BMI) of 37.0 to 37.9 in adult - Encouraged continuation of regular exercise. Encouraged a healthy diet. 4. Arthritis of left knee - Naproxen Sodium 220 MG capsule; Take 220 mg by mouth 2 times daily as needed (arthralgias)., Starting Mon09/13/2023, Normal - Stable with PRN Tylenol and Naproxen. Will continue current treatment plan. 5. Gastroesophageal reflux disease, unspecified whether esophagitis present - omeprazole (PriLOSEC) [address] capsule; Take 1 capsule (40 mg) by mouth every morning (before breakfast). Do not crush or chew., Starting Mon09/13/2023, Normal - Stable with Omeprazole. Will continue current treatment plan. Follow up in about 6 months (around 03/14/2024) for dual visit- AWV and WFE. SUBJECTIVE/OBJECTIVE: ALFONSO Mcguire presents today for her 6 month follow up on her chronic health conditions. Hyperlipidemia: Continues to take Rosuvastatin daily as prescribed. Denies myalgias. Levels were stable when checked in February 2023. Component Ref Range & Units 6 mo ago 1 yr ago 2 yr ago 3 yr ago CHOLESTEROL, TOTAL <200 mg/dL 134 139 HDL CHOLESTEROL > OR = 50 mg/dL 52 50 56 R 53 R TRIGLYCERIDES <150 mg/dL 146 120 116 124 LDL-CHOLESTEROL mg/dL (calc) 59 68 CM CHOL/HDLC RATIO <5.0 (calc) 2.6 2.8 NON HDL CHOLESTEROL <130 mg/dL (calc) 82 89 CM Hypertension: Takes her Losartan daily. Does not check her blood pressure at home. Her BP is stable today 136/88. Obesity: Has been doing water aerobics three times per week. Strives for a healthy diet but knows she can work on moderation and making healthier food choices. Arthritis: Feels symptoms are stable. Will take an Extra Strength Tylenol or Naproxen and this helps if she needs it. GERD: Takes Omeprazole daily and feels symptoms are well controlled. Health Maintenance: Declines screening for Hepatitis C. Fully vaccinated for pneumonia. Vaccinated for COVID-19 (Moderna) x6 with most recent dose on 04/11/23. Tdap current: 04/09/22. Colonoscopy current: 10/25/18- due for repeat in 2023- scheduled for tomorrow. DEXA: 01/12/22. Is fully vaccinated for shingles. Mammogram: 03/24/23. Review of Systems Constitutional: Negative for chills and fever. Respiratory: Negative for chest tightness and shortness of breath. Cardiovascular: Negative for chest pain, palpitations and leg swelling. Gastrointestinal: Negative for abdominal distention, abdominal pain and blood in stool. Musculoskeletal: Positive for arthralgias. Skin: Negative for color change, pallor, rash and wound. Neurological: Negative for dizziness, syncope, weakness and headaches. Vitals: 09/13/23 1412 09/13/23 1429 BP: (!) 160/91 136/88 Pulse: 88 SpO2: 95% Weight: 202 lb 12.8 oz (92 kg) Height: 5' 2 (1.575 m) Body mass index is 37.09 kg/m?. Physical Exam Constitutional: General: She is not in acute distress. Appearance: She is obese. She is not ill-appearing or diaphoretic. Neck: Vascular: No carotid bruit. Cardiovascular: Rate and Rhythm: Normal rate and regular rhythm. Pulses: Normal pulses. Heart sounds: Normal heart sounds. No murmur heard. No friction rub. Pulmonary: Effort: Pulmonary effort is normal. Breath sounds: Normal breath sounds. No wheezing, rhonchi or rales. Abdominal: General: Abdomen is protuberant. Bowel sounds are normal. Palpations: Abdomen is soft. There is no hepatomegaly, splenomegaly or mass. Tenderness: There is no abdominal tenderness. Musculoskeletal: Cervical back: Neck supple. Right lower leg: No edema. Left lower leg: No edema. Skin: General: Skin is warm and dry. Coloration: Skin is not pale. Findings: No erythema or rash. Neurological: Mental Status: She is alert and oriented to person, place, and time. Psychiatric: Mood and Affect: Mood normal. Behavior: Behavior normal. Thought Content: Thought content normal. Judgment: Judgment normal. An electronic signature was used to authenticate this note. JULISSA Hewitt CNP 09/13/2023 2:38 PM [facility] Progress Note Patient verified by last name and . [facility] 36on 08-30-2023 36 Name of caller: Yareli mcmanus Contact phone number: [phone] Relationship to Patient: patient Provider: ZARINA Acevedo Practice: [facility] Gastroenterology Chief Complaint/Reason for Call: Pt states she would like to know if prescription for Sodium Sulfate-Mag Sulfate-KCl (Sutab) [phone] MG tablet can be sent to her pharmacy again. Pt states that it was not picked up in time and the pharmacy needs a new prescription. Please advise. Best time of day caller can be reached: any Patient advised that office/PCP has 24-48 business hours to return their call: No [address] 07-28-2023 36 Reviewed Colonoscopy 10/25/2018- Good prep; moderate diverticulosis in sigmoid colon; internal hemorrhoids. No specimens collected. Recommended repeat in 5 years. EGD 10/25/2018- Erosive gastritis; reflux esophagitis. Gastric biopsies negative for H. Pylori. [place] [id number] Received records for EGD and pathology completed by Dr Ying. Scanned into media for review. Thank you! [address] 07-26-2023 36 Faxed LUCIO to [facility] Thank you! [facility] 36 Pt states she [facility]ac [facility], they do have her records. Fax number [phone]. Thank you [place] [address] LUCIO we sent out to [facility] [employer] came back with no results as they do not have any patient information for her. They suggested [facility] may. Contacted [facility], they do not have anything for her since 2008. Stated [address] Ying was at [facility] around time patient had EGD done. Called patient to attempt to get more information, she said office she had procedure at was in [place], but was not hospital. She will attempt to find their address and call back. [place] [address]on 07-24-2023 36 Sutab denied, has to try at least 2 covered alternatives. Called pt to discuss, lmtcb. [facility] 36on 07-12-2023 36 Spoke with patient. Got her r/s for 09/14/[address] [place] [address] Waters at 10am with the arrival time of 9am. Got the case r/s with the help of Sarah in surgery scheduling. EPIC schedule updated Order submitted Open Case request submitted Case # [id number] Sutab prep Endo packet mailed to patient Prep sent via [employer] if pt acct active Pt is aware they will need a courtesy driver to take them home from procedure. Must be family member or friend. They cannot use any ride programs. Ex: Uber, Lyft, SCAT, bus, etc...) [facility] 36 Name of Caller: Yareli mcmanus Contact Reason for Appointment: Patient states that her courtesy driver will be out of town and she would like to change her 08/31/23 procedure to 09/14/23. Please advise. Office Name: [facility] Gastroenterology [facility] 36 Pa started for Sutab on CMM. [facility] Office Visiton 07-11-2023 Follow-up visit [id number] Shayla Jara 1955 F Date Provider Department Center 07/11/2023 [id number] HERRERA [facility] Family History Problem Relation Age of Onset Cervical cancer Mother Cancer Brother Diabetes Mother's Sister Breast cancer Mother's Sister Heart disease Mother's Sister Crohn's disease Neg Hx Colon cancer Neg Hx Family Status - Relation Status Age at Mother Brother Other Notes: leukemia Mother's Sister Neg Hx Level of Service:37485 HI OFFICE/OUTPATIENT ESTABLISHED LOW MDM 20 MIN Reason for Visit and Comments: Follow-up [891281] - [place] ED follow up 07/07/23 for Diverticulitis. [facility] PATINSon 07-11-2023 PATINS Call to schedule wit h gastroenterology. [facility] Progress Noteon 07-11-2023 Progress Note Symptoms improving, continue antibiotic and follow-up with gastroenterology as directed [facility] Progress Note 07/11/2023 Shayla Jara (: 1955) is a 67 y.o. female , Established patient, here for evaluation of the following chief complaint(s): Follow-up ([place] ED follow up 07/07/23 for Diverticulitis.) ASSESSMENT/PLAN: 1. Diverticulitis Assessment & Plan: Symptoms improving, continue antibiotic and follow-up with gastroenterology as directed Follow up for with specialist. SUBJECTIVE/OBJECTIVE: HPI - Shayla Jara (: 1955) is a 67 y.o. female , Established patient, here for the evaluation of the following chief complaint(s): Follow-up ([place] ED follow up 07/07/23 for Diverticulitis.) Patient presents for follow-up emergency room 07/07/2023 for diverticulitis. Was started on Augmentin twice daily x 10 days and Bentyl for cramping. Reports that she still is having some pain in the lower left abdomen. Reports a small amount of blood in the stool yesterday and today. Some mild cramping. States she was having a lot of blood in the stool and Monday of last week. CT of abdomen showed bowel wall inflammation of the colon, no abscess noted. Labs unremarkable. Has reached out to gastroenterology and will be having scope done in August. Prior to Admission medications Medication Sig Start Date End Date Taking? Authorizing Provider amoxicillin-clavulanate (Augmentin) 875-125 MG tablet Take 1 tablet by mouth in the morning and 1 tablet in the evening. Do all this for 10 days. 07/07/23 07/17/23 Yes Vinicio Gómez MD aspirin 81 MG EC tablet Take 81 mg by mouth in the morning. Yes Historical Provider, cholecalciferol (Vitamin D-3) 50 MCG (1999 UT) capsule Take by mouth. Yes Historical Provider, dicyclomine (Bentyl) 20 MG tablet Take 1 tablet (20 mg) by mouth 3 times daily as needed (Abdominal pain) for up to 10 days. 07/07/23 07/17/23 Yes Vinicio Gómez MD diphenhydrAMINE-acetamin ophen (Tylenol PM Extra Strength) 25-500 MG per tablet Take 1 tablet by mouth every 24 hours as needed. Yes Historical Provider, MD losartan (Cozaar) 50 MG tablet TAKE 1 TABLET DAILY 01/13/23 Yes Eder Sesay MD Naproxen Sodium 220 MG capsule Take by mouth. Yes Historical Provider, omega-3 (Fish Oil) 1000 MG capsule Take 3,000 mg by mouth. Yes Historical Provider, omeprazole (PriLOSEC) [address] capsule Take 1 capsule (40 mg) by mouth every morning (before breakfast). Do not crush or chew. 03/13/23 Yes JULISSA Hewitt CNP rosuvastatin (Crestor) 5 MG tablet TAKE 1 TABLET DAILY 01/13/23 Yes Eder Sesay MD Cyanocobalamin 100 MCG lozenge Take by mouth. Historical Provider, ipratropium (Atrovent) 0.06 % nasal spray Administer 2 sprays into each nostril 3 times daily for 7 days. 06/01/22 06/12/23 JULISSA Samuels CNP loratadine (Claritin) 10 MG tablet Take 10 mg by mouth in the morning. Historical Provider, Sodium Sulfate-Mag Sulfate-KCl (Sutab) [id number] MG tablet Please take as directed by GI office for colonoscopy prep. 06/12/23 JULISSA Amador CNP Review of Systems Constitutional: Positive for appetite change. Negative for activity change, chills, fatigue and fever. Respiratory: Negative. Cardiovascular: Negative. Gastrointestinal: Positive for abdominal pain (Improving), blood in stool (Improving) and diarrhea (loose stools lessoning.). Negative for constipation, nausea and vomiting. Genitourinary: Negative for difficulty urinating. Vitals: 07/11/23 1454 BP: 120/80 Pulse: 73 Temp: 36.3 ?C (97.3 ?F) TempSrc: Temporal SpO2: 94% Weight: 206 lb 6.4 oz (93.6 kg) Physical Exam Constitutional: General: She is not in acute distress. Appearance: Normal appearance. She is obese. She is not ill-appearing. HENT: Head: Normocephalic and atraumatic. Mouth/Throat: Mouth: Mucous membranes are moist. Pharynx: Oropharynx is clear. No posterior oropharyngeal erythema. Eyes: Conjunctiva/sclera: Conjunctivae normal. Abdominal: General: Abdomen is flat. Bowel sounds are normal. Palpations: Abdomen is soft. Tenderness: There is abdominal tenderness (left lower quadrant). There is no guarding. Skin: General: Skin is warm and dry. Neurological: Mental Status: She is alert and oriented to person, place, and time. An electronic signature was used to authenticate this note. JULISSA Samuels CNP 07/11/2023 3:42 PM [facility] 36on 07-10-2023 36 S: Patient spoke wit h [facility] nurse regarding abdominal pain B: Onset of symptoms/concern 07/07/23 [facility] ED-diverticulitis A: Pt reports intermittent mild abdominal pain. Medical record reviewed. Pt reports some relief of symptoms with medication prescribed at ED. Pt is still taking aspirin, wants to know if she should be. R: Scheduled appt 07/12/23 at 3:00pm with JULISSA Samuels CNP. Patient understands care advice. No further needs at this time. Patient instructed to call back with new or worsening symptoms. Reason for Disposition MILD pain (e.g., does not interfere with normal activities) and pain comes and goes (cramps) lasts > 48 hours (Exception: This same abdominal pain is a chronic symptom recurrent or ongoing AND present > 4 weeks.) Protocols used: Abdominal Pain - Fauoly-BEUYZ-SN [facility] Progress Noteon 07-10-2023 Progress Note Chart reviewed of ED follow up Seen in [facility] ED on 07/07/23 Reason: abdominal pain Discharge instructions: PATIENT REFERRED TO: Eder Sesay MD [address] [place] [address] [place] [id number] Call in 3 days Message: I am calling from Eder Sesay MD's office, following up after your recent ED visit. Please call the office at [phone] and we can schedule a follow up appointment..Taylor richardson signed by Edda Norris LPN on 07/11/2023 at 2:40 PM Message: I am calling from Eder Sesay MD's office, following up after your recent ED visit. Please call the office at [phone] and we can schedule a follow up appointment...Shima swartz signed by Edda Norris LPN on 07/12/2023 at 10:42 AM If patient calls back, please assist with scheduling a ED follow up appointment. Normal [facility] 36on 07-07-2023 36 S Patient calling wi th rectal bleeding. B A Patient calling with GI symptoms. Stomach pain, diarrhea and bleeding. Yesterday worse then today. Severe yesterday. Frequent loose stool. Bright red to dark brown. Would vary in amount sometime very little and sometimes a lot of blood. Today has eased up a little more of intermittent cramping but still having dark red blood per rectum. Unsure if it is hemorrhoids. Is eating and drinking very little. R patient advised ED today for evaluation. Will go to [facility] today. Advised to call back for follow up care and ongoing symptoms. Voiced understanding. Reason for Disposition Bloody, black, or tarry bowel movements (Exception: Chronic-unchanged black-mason bowel movements and is taking iron pills or Pepto-Bismol.) Patient sounds very sick or weak to the triager Protocols used: Rectal Pvmbmgcg-QFLKV-VI Normal [facility] BASIC METABOLIC PANELon 02- Anion gap [Moles/Vol] 10 mmol/L Normal 3-13 [facility] Comment on above: Performed By: #### L AB20, LAB15 ####Iron Setter: VLADISLAV MAGUIRE ([id number])[facility] LIS [employer] (SWRLAB)[address] [place] [address] Calcium [Mass/Vol] 9.8 mg/dL Normal 8.4-10.4 [facility] Comment on above: Performed By: #### L AB20, LAB15 ####Iron Setter: VLADISLAV MAGUIRE ([id number])[facility] LIS [employer] (SWRLAB)[address] [place] [address] [place] Chloride [Moles/Vol] 102 mmol/L Normal 98-107 [facility] Comment on above: Performed By: #### L AB20, LAB15 ####Iron Setter: VLADISLAV MAGUIRE ([id number])[facility] LIS [employer] (SWRLAB)[address] [place] [address] [place] CO2 [Moles/Vol] 27 mmol/L Normal 22-30 [facility] Comment on above: Performed By: #### L AB20, LAB15 ####Iron Setter: VLADISLAV MAGUIRE ([id number])[facility] [employer] [employer] (SWRLAB)[address] [place] [address] [place] Creatinine [Mass/Vol] 0.78 mg/dL Normal 0.52-1.04 [facility] Comment on above: Performed By: #### L AB20, LAB15 ####Iron Setter: VLADISLAV MAGUIRE ([id number])[facility] [employer] (SWRLAB)[address] [place] [address] [place] GLOMERULAR FILTRATION RATE ML/MIN/1.73 SQ M.PREDICTED 83.4 mL/min/1.73m*2 Normal >60.0 [facility] Comment on above: Result Comment: Calc ulation based on the Chronic Kidney Disease Epidemiology Collaboration (CKD-EPI) equation refit without adjustment for race Performed By: #### L AB20, LAB15 ####Iron Setter: VLADISLAV MAGUIRE ([id number])[facility] [employer] (SWRLAB)[address] [place] [address] [place] Glucose [Mass/Vol] 125 mg/dL High 70-100 [facility] Comment on above: Performed By: #### L AB20, LAB15 ####Iron Setter: VLADISLAV MAGUIRE ([id number])[facility] [employer] (SWRLAB)[address] [place] [address] [place] Potassium [Moles/Vol] 4.2 mmol/L Normal 3.5-5.1 [facility] Comment on above: Performed By: #### L AB20, LAB15 ####Iron Setter: VLADISLAV MAGUIRE ([id number])[facility] [employer] (SWRLAB)[address] [place] [address] [place] Sodium [Moles/Vol] 140 mmol/L Normal 135-145 [facility] Comment on above: Performed By: #### L AB20, LAB15 ####Iron Setter: VLADISLAV MAGUIRE ([id number])[facility] (SWRLAB)[address] Urea nitrogen [Mass/Vol] 8 mg/dL Normal 7-17 [facility] Comment on above: Performed By: #### L AB20, LAB15 ####Iron Setter: VLADISLAV MAGUIRE ([id number])[facility] (SWRLAB)[address] [place] [address] Basic metabolic 1998 panelon 07-07-2023 Anion gap [Moles/Vol] 10 mmol/L 3 - 13 mmol/L [facility] Calcium [Mass/Vol] 9.8 mg/dL 8.4 - 10. 4 mg/dL [facility] Chloride [Moles/Vol] 102 mmol/L 98 - 107 mmol/L [facility] CO2 [Moles/Vol] 27 mmol/L 22 - 30 mmol/L [facility] Creatinine [Mass/Vol] 0.78 mg/dL 0.52 - 1.04 mg/dL [facility] GFR/1.73 sq M.predicted MDRD (S/P/Bld) [Vol rate/Area] 83.4 mL/min/{1.73_m2} - PINF [facility] Comment on above: Calculation based on the Chronic Kidney Disease Epidemiology Collaboration (CKD-EPI) equation refit without adjustment for race Glucose [Mass/Vol] 125 mg/dL High 70 - 100 mg/dL [facility] Interpretation and review of laboratory results Abnormal [facility] Potassium [Moles/Vol] 4.2 mmol/L 3.5 - 5.1 mmol/L [facility] Sodium [Moles/Vol] 140 mmol/L 135 - 145 mmol/L [facility] Urea nitrogen [Mass/Vol] 8 mg/dL 7 - 17 mg/dL [facility] CBC W Auto Differential pane l (Bld)Ordered By: Crystal Robledo on 07-07-2023 Basophils (Bld) [#/Vol] 0.0 10*3/uL 0.0 - 0.2 10*3/uL [facility] Basophils/100 WBC (Bld) 0.4 % 0.0 - 2.0 % [facility] Eosinophils (Bld) [#/Vol] 0.3 10*3/uL 0.0 - 0.5 10*3/uL [facility] Eosinophils/100 WBC (Bld) 4.9 % 1.0 - 6.0 % [facility] Erythrocyte distribution width (RBC) [Ratio] 13.1 % 11.5 - 14.5 % [facility] Hematocrit (Bld) [Volume fraction] 42.5 % 35.0 - 47.0 % [facility] Hemoglobin (Bld) [Mass/Vol] 14.5 g/dL 11.7 - 16.0 g/dL [facility] Immature granulocytes (Bld) [#/Vol] 0.0 10*3/uL NINF - 0.0 10*3/uL [facility] Immature granulocytes/100 WBC (Bld) 0.3 % High NINF - 0.0 % [facility] Interpretation and review of laboratory results Abnormal [facility] Lymphocytes (Bld) [#/Vol] 1.5 10*3/uL 1.0 - 4.3 10*3/uL [facility] Lymphocytes/100 WBC (Bld) 23.1 % 20.0 - 40.0 % [facility] MCH (RBC) [Entitic mass] 30.2 pg 26.0 - 34.0 pg [facility] MCHC (RBC) [Mass/Vol] 34.1 % 32.0 - 36.0 % [facility] MCV (RBC) [Entitic vol] 88.5 fL 80.0 - 98.0 fL [facility] Monocytes (Bld) [#/Vol] 0.4 10*3/uL 0.0 - 0.8 10*3/uL [facility] Monocytes/100 WBC (Bld) 5.8 % 2.0 - 10.0 % [facility] Neutrophils (Bld) [#/Vol] 4.4 10*3/uL 1.8 - 7.0 10*3/uL [facility] Neutrophils/100 WBC (Bld) 65.5 % 40.0 - 80.0 % [facility] Platelet mean volume (Bld) [Entitic vol] 9.7 fL 7.4 - 12.4 fL [facility] Comment on above: MPV is a calculated measurement using platelet volume ratio Platelets (Bld) [#/Vol] 268 10*3/uL 140 - 440 10*3/uL [facility] RBC (Bld) [#/Vol] 4.80 10*6/uL 3.8 - 5.20 10*6/uL [facility] WBC (Bld) [#/Vol] 6.7 10*3/uL 3.6 - 10.7 10*3/uL [facility] CBC WITH AUTO DIFFERENTIALon 07-07-2023 Basophils (Bld) [#/Vol] 0.0 10*3/uL Normal 0.0-0.2 [facility] Comment on above: Performed By: #### L [id number] ####Iron Setter: VLADISLAV MAGUIRE ([id number])[facility] [employer] (SWRLAB)[address] [place] [address] Basophils/100 WBC (Bld) 0.4 % Normal 0.0-2.0 [facility] Comment on above: Performed By: #### L [id number] ####Iron Setter: VLADISLAV MAGUIRE ([id number])[facility] [employer] (SWRLAB)[address] [place] [address] [place] Eosinophils (Bld) [#/Vol] 0.3 10*3/uL Normal 0.0-0.5 [facility] Comment on above: Performed By: #### L [id number] ####Iron Setter: VLADISLAV MAGUIRE ([id number])[facility] [employer] (SWRLAB)[address] [place] [address] [place] Eosinophils/100 WBC (Bld) 4.9 % Normal 1.0-6.0 [facility] Comment on above: Performed By: #### L [id number] ####Iron Setter: VLADISLAV MAGUIRE ([id number])[facility] [employer] (SWRLAB)[address] [place] [address] Erythrocyte distribution width (RBC) [Ratio] 13.1 % Normal 11.5-14.5 [facility] Comment on above: Performed By: #### L [id number] ####Iron Setter: VLADISLAV [id number])[employer] (SWRLAB)[address] [place] [address] [place] ERYTHROCYTE MEAN CORPUSCULAR HEMOGLOBIN CONCENTRATION (G/DL) BY AUTOMATED 34.1 % Normal 32.0-36.0 [facility] Comment on above: Performed By: #### L [id number] ####Iron Setter: VLADISLAV MAGUIRE ([id number])[employer] (SWRLAB)[address] [place] [address] Hematocrit (Bld) [Volume fraction] 42.5 % Normal 35.0-47.0 [facility] Comment on above: Performed By: #### L [id number] ####Iron Setter: VLADISLAV MAGUIRE ([id number])[facility]ITALSunday [employer] [employer] (SWRLAB)[address] [place] [address] Hemoglobin (Bld) [Mass/Vol] 14.5 g/dL Normal 11.7-16.0 [facility] Comment on above: Performed By: #### L [id number] ####Iron Setter: VLADISLAV MAGUIRE ([id number])[facility] [employer] [employer] (SWRLAB)[address] [place] [address] [place] IMMATURE GRANS (10*3/UL) IN BLOOD BY AUTOMATED COUNT 0.0 10*3/uL Normal <=0.0 [facility] Comment on above: Performed By: #### L [id number] ####Iron Setter: VLADISLAV MAGUIRE ([id number])[employer] (SWRLAB)[address] [place] [address] [place] IMMATURE GRANS/100 LEUKOCYTES IN BLOOD BY AUTOMATED COUNT 0.3 % High <=0.0 [facility] Comment on above: Performed By: #### L [id number] ####Iron Setter: VLADISLAV MAGUIRE ([id number])[employer] (SWRLAB)[address] [place] [address] [place] Lymphocytes (Bld) [#/Vol] 1.5 10*3/uL Normal 1.0-4.3 [facility] Comment on above: Performed By: #### L [id number] ####Iron Setter: VLADISLAV MAGUIRE ([id number])[employer] (SWRLAB)[address] [place] [address] Lymphocytes/100 WBC (Bld) 23.1 % Normal 20.0-40.0 [facility] Comment on above: Performed By: #### L [id number] ####Iron Setter: VLADISLAV MAGUIRE ([id number])[facility] [place] [employer] (SWRLAB)[address] [place] [address] MCH (RBC) [Entitic mass] 30.2 pg Normal 26.0-34.0 [facility] Comment on above: Performed By: #### L [id number] ####Iron Setter: VLADISLAV MAGUIRE ([id number])[facility]Sunday [place] (SW[place])[address] [place] [address] MCV (RBC) [Entitic vol] 88.5 fL Normal 80.0-98.0 [facility] Comment on above: Performed By: #### L [id number] ####Iron Setter: VLADISLAV MAGUIRE ([id number])[facility] [place] ([place])[address] [place] [address] Monocytes (Bld) [#/Vol] 0.4 10*3/uL Normal 0.0-0.8 [facility] Comment on above: Performed By: #### L [id number] ####Iron Setter: VLADISLAV MAGUIRE ([id number])[facility] [place] ([place])[address] [place] [address] [place] Monocytes/100 WBC (Bld) 5.8 % Normal 2.0-10.0 [facility] Comment on above: Performed By: #### L [id number] ####Iron Setter: VLADISLAV MAGUIRE ([id number])[facility]Sunday [place] ([place])[address] [place] [address] [place] Neutrophils (Bld) [#/Vol] 4.4 10*3/uL Normal 1.8-7.0 [facility] Comment on above: Performed By: #### L [id number] ####Iron Setter: VLADISLAV MAGUIRE ([id number])[facility] [place] ([place])[address] [place] [address] Neutrophils/100 WBC (Bld) 65.5 % Normal 40.0-80.0 [facility] Comment on above: Performed By: #### L [id number] ####Iron Setter: VLADISLAV MAGUIRE ([id number])[facility]Sunday [place] ([place])[address] [place] [address] Platelet mean volume (Bld) [Entitic vol] 9.7 fL Normal 7.4-12.4 [facility] Comment on above: Result Comment: MPV is a calculated measurement using platelet volume ratio Performed By: #### L [id number] ####Iron Setter: VLADISLAV MAGUIRE ([id number])[facility]Sunday [place] ([place])[address] [place] [address] [place] Platelets (Bld) [#/Vol] 268 10*3/uL Normal 140-440 [facility] Comment on above: Performed By: #### L [id number] ####Iron Setter: VLADISLAV MAGUIRE ([id number])[facility]Sunday [place] ([place])[address] [place] [address] RBC (Bld) [#/Vol] 4.80 10*6/uL Normal 3.8-5.20 [facility] Comment on above: Performed By: #### L [id number] ####Iron Setter: VLADISLAV MAGUIRE ([id number])[facility] [place] ([place])[address] [place] [address] [place] WBC (Bld) [#/Vol] 6.7 10*3/uL Normal 3.6-10.7 [facility] Comment on above: Performed By: #### L [id number] ####Iron Setter: VLADISLAV MAGUIRE ([id number])[facility]A [place] (SWRL[place])[address] COMPLETE URINALYSISon 2023 BACTERIA (#/HPF) IN URINE Negative Normal Negative [facility] Comment on above: Performed By: #### L [id number] ####Iron Setter: VLADISLAV MAGUIRE ([id number])[facility] [place] ([place])[address] [place] [address] [place] BILIRUBIN, TOTAL PRESENCE IN URINE Negative Normal Negative [facility] Comment on above: Performed By: #### L [id number] ####Iron Setter: VLADISLAV MAGUIRE ([id number])[facility] [place] ([place])[address] Clarity (U) Clear Normal Clear [facility] Comment on above: Performed By: #### L [id number] ####Iron Setter: VLADISLAV MAGUIRE ([id number])[facility] [place] ([place])[address] Color (U) Colorless Normal Lt. Yellow [facility] Comment on above: Performed By: #### L [id number] ####Iron Setter: VLADISLAV MAGUIRE ([id number])[facility]A [place] ([place])[address] [place] [address] [place] GLUCOSE (MG/DL) IN URINE Normal Normal Normal (<70) [facility] Comment on above: Performed By: #### L [id number] ####Iron Setter: VLADISLAV MAGUIRE ([id number])[facility] [place])[address] [place] [address] [place] HEMOGLOBIN PRESENCE IN URINE 0.03 mg/dL Abnormal Negative [facility] Comment on above: Performed By: #### L [id number] ####Iron Setter: VLADISLAV MAGUIRE ([id number])[facility] [place])[address] [place] [address] [place] Ketones Ql (U) Negative Normal Negative [facility] Comment on above: Performed By: #### L [id number] ####Iron Setter: VLADISLAV MAGUIRE ([id number])[facility]Sunday [place] ([place])[address] LEUKOCYTE ESTERASE PRESENCE IN URINE BY TEST STRIP Negative Normal Negative [facility] Comment on above: Performed By: #### L [id number] ####Iron Setter: VLADISLAV MAGUIRE ([id number])[facility]Sunday [place])[address] NITRITE PRESENCE IN URINE Negative Normal Negative [facility] Comment on above: Performed By: #### L [id number] ####Iron Setter: VLADISLAV MAGUIRE ([id number])[facility]Sunday [place])[address] [place] [address] [place] pH (U) 7.0 [pH] Normal 5.0-8.0 [facility] Comment on above: Performed By: #### L [id number] ####Iron Setter: VLADISLAV MAGUIRE ([id number])[facility]Sunday [place] ([place])[address] Protein (U) [Mass/Vol] Negative Normal Negative [facility] Comment on above: Performed By: #### L [id number] ####Iron Setter: VLADISLAV MAGUIRE ([id number])[facility]Sunday [place] ([place])[address] [place] [address] [place] RBC (#/HPF) IN URINE SEDIMENT Negative Normal 0-2 [facility] Comment on above: Performed By: #### L [id number] ####Iron Setter: VLADISLAV MAGUIRE ([id number])[facility]Sunday [place] ([place])[address] Specific gravity (U) [Rel density] 1.006 Normal 1.005-1.030 [facility] Comment on above: Performed By: #### L [id number] ####Iron Setter: VLADISLAV MAGUIRE ([id number])[facility] [place] ([place])[address] [place] [address] Specimen volume (U) 12 mL Normal [facility] Comment on above: Performed By: #### L [id number] ####Iron Setter: VLADISLAV MAGUIRE ([id number])[facility] [place] ([place])[address] [place] [address] [place] SQUAMOUS EPITHELIAL CELLS (#/HPF) IN URINE SEDIMENT 0-2 Normal 3-5 [facility] Comment on above: Performed By: #### L [id number] ####Iron Setter: VLADISLAV MAGUIRE ([id number])[facility] [place] ([place])[address] [place] [address] [place] UROBILINOGEN (MG/DL) IN URINE Normal Normal Normal (0-1) [facility] Comment on above: Performed By: #### L [id number] ####Iron Setter: VLADISLAV MAGUIRE ([id number])[facility] [place] ([place])[address] [place] [address] [place] WBC (LEUKOCYTE) (#/HPF) IN URINE SEDIMENT Negative Normal 0-5 [facility] Comment on above: Performed By: #### L [id number] ####Iron Setter: VLADISLAV MAGUIRE ([id number])[facility]A [place] ([place])[address] [place] [address] CT ABDOMEN PELVIS W CONTRAST on 07-07-2023 CT ABDOMEN PELVIS W CONTRAST Patient Name: SHAYLA JARA : 1955 Exam Date/Time: 07/07/2023 12:28 Procedure: CT ABDOMEN PELVIS W CONTRAST Ordering Provider: GÓMEZ KEVIN Reason For Exam: LLQ abdominal pain Study: CT abdomen pelvis. INDICATION:Abdominal pain COMPARISON:None FINDINGS: Dose reduction was employed with automated exposure control. Imaging of the abdomen and pelvis were performed with 75 cc isovue 370; evaluation of bowel limited due to lack of oral contrast including detection of inflammation, mucosal lesions.. Imaging viewed in multiple planes. Additional imaging:None. Lung bases:No convincing acute process. Free air: No free air. Bowel: Inflammatory changes of the distal descending colon. No abscess or obstruction, definite pneumatosis or appendicitis. Limited, lack of oral contrast. Peritoneal cavity:No convincing acute process. Gallbladder:No definite acute process. Liver spleen pancreas kidneys adrenal glands urinary bladder: No convincing acute process or findings to explain symptoms. Pelvic structures:No convincing acute process. Vascular:No definite acute process. Limited technique. Retroperitoneum: No adenopathy or acute process. Spine:No convincing acute process of bone, paraspinous soft tissues. Abdominal wall:No convincing acute process. IMPRESSION: Acute diverticulitis suspected. No convincing obstruction or abscess. Please correlate clinically. Follow-up recommended. Report Dictated on Electronically Signed By: Juanjose López MD Electronically Signed Date/Time: 07/07/2023 12:59 PM EST Patient is here today with diarrhea, abdominal pain, nausea and bloody stools. Symptoms started on Monday. She has history of diverticulitis and currently has a hiatal hernia. She is scheduled for colonoscopy and endoscopy. She recently started omeprazole for GERD. She has not had an appetite but managed to eat scrambled eggs yesterday and she sipped on 7up. She denies vomiting Normal [facility] CT Abdomen and Pelvis W cont rast Jose 07-07-2023 Acute diverticulitis suspected. No convincing obstruction or abscess. Please correlate clinically. Follow-up recommended. Report Dictated on Electronically Signed By: Junajose López MD Electronically Signed Date/Time: 07/07/2023 12:59 PM [facility] Patient Name: SHAYLA JARA : 1955 Exam Date/Time: 07/07/2023 12:28 Procedure: CT ABDOMEN PELVIS W CONTRAST Ordering Provider: GÓMEZ KEVIN Reason For Exam: LLQ abdominal pain Study: CT abdomen pelvis. INDICATION:Abdominal pain COMPARISON:None FINDINGS: Dose reduction was employed with automated exposure control. Imaging of the abdomen and pelvis were performed with 75 cc isovue 370; evaluation of bowel limited due to lack of oral contrast including detection of inflammation, mucosal lesions.. Imaging viewed in multiple planes. Additional imaging:None. Lung bases:No convincing acute process. Free air: No free air. Bowel: Inflammatory changes of the distal descending colon. No abscess or obstruction, definite pneumatosis or appendicitis. Limited, lack of oral contrast. Peritoneal cavity:No convincing acute process. Gallbladder:No definite acute process. Liver spleen pancreas kidneys adrenal glands urinary bladder: No convincing acute process or findings to explain symptoms. Pelvic structures:No convincing acute process. Vascular:No definite acute process. Limited technique. Retroperitoneum: No adenopathy or acute process. Spine:No convincing acute process of bone, paraspinous soft tissues. Abdominal wall:No convincing acute process. [facility] Juanjose López MD - 07/07/2023 Patient Name: SHAYLA JARA : 1955 Exam Date/Time: 07/07/2023 12:28 Procedure: CT ABDOMEN PELVIS W CONTRAST Ordering Provider: GÓMEZ KEVIN Reason For Exam: LL abdominal pain Study: CT abdomen pelvis. INDICATION:Abdominal pain COMPARISON:None FINDINGS: Dose reduction was employed with automated exposure control. Imaging of the abdomen and pelvis were performed with 75 cc isovue 370; evaluation of bowel limited due to lack of oral contrast including detection of inflammation, mucosal lesions.. Imaging viewed in multiple planes. Additional imaging:None. Lung bases:No convincing acute process. Free air: No free air. Bowel: Inflammatory changes of the distal descending colon. No abscess or obstruction, definite pneumatosis or appendicitis. Limited, lack of oral contrast. Peritoneal cavity:No convincing acute process. Gallbladder:No definite acute process. Liver spleen pancreas kidneys adrenal glands urinary bladder: No convincing acute process or findings to explain symptoms. Pelvic structures:No convincing acute process. Vascular:No definite acute process. Limited technique. Retroperitoneum: No adenopathy or acute process. Spine:No convincing acute process of bone, paraspinous soft tissues. Abdominal wall:No convincing acute process. IMPRESSION: Acute diverticulitis suspected. No convincing obstruction or abscess. Please correlate clinically. Follow-up recommended. Report Dictated on Electronically Signed By: Juanjose López MD Electronically Signed Date/Time: 07/07/2023 12:59 PM EST [facility] Radiology Study observation (narrative) [facility] CT Abdomen and Pelvis W cont rast IVOrdered By: Juanjose López on 07-07-2023 [facility] [employer] Work Phone: ED Nursing Noteon 07-07-2023 ED Nursing Note Patient is here toda y with diarrhea, abdominal pain, nausea and bloody stools. Symptoms started on Monday. She has history of diverticulitis and currently has a hiatal hernia. She is scheduled for colonoscopy and endoscopy. She recently started omeprazole for GERD. She has not had an appetite but managed to eat scrambled eggs yesterday and she sipped on . She denies vomiting. Call light within reach. Normal [facility] ED Provider Noteon ED Provider Note EMERGENCY DEPARTMENT ENCOUNTER Pt Name: Shayla Jara Birthdate 1955 Date of evaluation: 07/07/2023 ED Provider: Vinicio Gómez MD CHIEF COMPLAINT Chief Complaint Patient presents with Abdominal Pain HISTORY OF PRESENT ILLNESS (Location/Symptom, Timing/Onset, Context/Setting, Quality, Duration, Modifying Factors, Severity) Note limiting factors. I wore appropriate PPE for the entirety of this encounter. HPI Shayla Jara is a 67 y.o. female who presents to the emergency department with chief complaint of abdominal pain associated with diarrhea. She is also having rectal bleeding. Pain began 2 to 3 days ago, was more severe yesterday and less cramping in severity today. However she has had multiple episodes of diarrhea which has become bloody diarrhea prompting her presentation here. She has felt warm but does not know she had a fever. Denies dysuria. Denies back or flank pain. Pain is in the bilateral lower quadrants. No specific exacerbating alleviating factors Nursing Notes were reviewed. Limitations to history: None Outside historians: None REVIEW OF SYSTEMS Review of Systems: Pertinent positives as above per history of present illness. Other systems reviewed and found to be negative to a total of 10 systems reviewed. PAST MEDICAL HISTORY Past Medical History: Diagnosis Date Acute non-recurrent frontal sinusitis 09/21/2022 Hiatal hernia History of blood clot in brain 1957 Hyperlipidemia Hypertension Nausea and vomiting 06/01/2022 Viral URI with cough 06/01/2022 SURGICAL HISTORY Past Surgical History: Procedure Laterality Date DILATION AND CURETTAGE OF UTERUS 1994 CURRENT MEDICATIONS Previous Medications ASPIRIN 81 MG EC TABLET Take 81 mg by mouth in the morning. CHOLECALCIFEROL (VITAMIN D-3) 50 MCG (1999 UT) CAPSULE Take by mouth. CYANOCOBALAMIN 100 MCG LOZENGE Take by mouth. DIPHENHYDRAMINE-ACETAMIN OPHEN (TYLENOL PM EXTRA STRENGTH) 25-500 MG PER TABLET Take 1 tablet by mouth every 24 hours as needed. IPRATROPIUM (ATROVENT) 0.06 % NASAL SPRAY Administer 2 sprays into each nostril 3 times daily for 7 days. LORATADINE (CLARITIN) 10 MG TABLET Take 10 mg by mouth in the morning. LOSARTAN (COZAAR) 50 MG TABLET TAKE 1 TABLET DAILY NAPROXEN SODIUM 220 MG CAPSULE Take by mouth. OMEGA-3 (FISH OIL) 1000 MG CAPSULE Take 3,000 mg by mouth. OMEPRAZOLE (PRILOSEC) [address] CAPSULE Take 1 capsule (40 mg) by mouth every morning (before breakfast). Do not crush or chew. ROSUVASTATIN (CRESTOR) 5 MG TABLET TAKE 1 TABLET DAILY SODIUM SULFATE-MAG SULFATE-KCL (SUTAB) 2150-520-560 MG TABLET Please take as directed by GI office for colonoscopy prep. ALLERGIES Patient has no known allergies. FAMILY HISTORY Family History Problem Relation Name Age of Onset Cervical cancer Mother Cancer Brother Diabetes Mother's Sister Breast cancer Mother's Sister Heart disease Mother's Sister Crohn's disease Neg Hx Colon cancer Neg Hx SOCIAL HISTORY Social History Socioeconomic History Marital status: Tobacco Use Smoking status: Never Smokeless tobacco: Never Vaping Use Vaping Use: Never used Substance and Sexual Activity Alcohol use: Never Drug use: Never SCREENINGS PHYSICAL EXAM ED Triage Vitals Temp Pulse Resp BP -- -- -- -- SpO2 Temp src Heart Rate Source Patient Position -- -- -- -- BP Location FiO2 (%) -- -- Physical Exam: Vital signs reviewed in nurse's notes. Patient is nontoxic in appearance. No respiratory distress. Head: Normocephalic, atraumatic Eyes: Pupils are equal, round and reactive to light. EOMI. Conjunctiva clear. Sclera anicteric ENT: Mucous membranes moist. Throat shows no erythema exudates or edema. Neck: No anterior adenopathy. No tenderness or stiffness. Lungs: Clear to auscultation bilaterally. No wheezing rales or rhonchi. Heart: Regular rate and rhythm. No audible murmur or gallop. Abdomen: Soft, nondistended, mildly tender in the bilateral lower quadrants. No rebound or guarding. No signs of peritonitis. Back: No midline tenderness. No flank area tenderness. Extremities: No gross deformity. No obvious tenderness. No obvious joint swelling. No calf tenderness. Good distal pulses in all 4 extremities. Neurologic: Alert and fully oriented. No focal motor, sensory deficits in all 4 extremities. Ambulatory with normal gait DIAGNOSTIC RESULTS RADIOLOGY (Per Emergency Physician): CT abdomen pelvis shows acute diverticulitis. No obstruction or abscess. Read by radiology. Reviewed by this examiner Interpretation per the Radiologist below, if available at the time of this note: CT abdomen pelvis w contrast Final Result Acute diverticulitis suspected. No convincing obstruction or abscess. Please correlate clinically. Follow-up recommended. Report Dictated on Electronically Signed By: Juanjose López MD Electronically Signed Date/Time: (more content not included)... Normal [facility] HEPATIC FUNCTION PANELon Albumin [Mass/Vol] 4.5 g/dL Normal 3.5-5.0 [facility] Comment on above: Performed By: #### L AB20, LAB15 ####Iron Setter: VLDAISLAV MAGUIRE ([id number])[facility] ([facility])[address] ALP [Catalytic activity/Vol] 83 U/L Normal 38-126 [facility] Comment on above: Performed By: #### L AB20, LAB15 ####Iron Setter: VLADISLAV MAGUIRE ([id number])[facility] ALT [Catalytic activity/Vol] 24 U/L Normal 0-34 [facility] Comment on above: Performed By: #### L AB20, LAB15 ####Iron Setter: VLADISLAV MAGUIRE ([id number])[facility]Sunday [place] ([place])[address] [place] [address] AST [Catalytic activity/Vol] 33 U/L Normal 15-46 [facility] Comment on above: Performed By: #### L AB20, LAB15 ####Iron Setter: VLADISLAV MAGUIRE ([id number])[facility]Sunday [place] ([place])[address] [place] [address] Bilirubin [Mass/Vol] 0.8 mg/dL Normal 0.2-1.3 [facility] Comment on above: Performed By: #### L AB20, LAB15 ####Iron Setter: VLADISLAV MAGUIRE ([id number])[facility] [place] ([place])[address] [place] [address] Bilirubin.indirect [Mass/Vol] 0.0 mg/dL Normal 0.0-0.3 [facility] Comment on above: Performed By: #### L AB20, LAB15 ####Iron Setter: VLADISLAV MAGUIRE ([id number])[facility] [place] ([place])[address] [place] [address] Protein [Mass/Vol] 7.7 g/dL Normal 6.3-8.2 [facility] Comment on above: Performed By: #### L AB20, LAB15 ####Iron Setter: VLADISLAV MAGUIRE ([id number])[facility] [place] ([place])[address] [place] [address] Hepatic function 2000 panelo n 07-07-2023 Albumin [Mass/Vol] 4.5 g/dL 3.5 - 5.0 g/dL [facility] ALP [Catalytic activity/Vol] 83 U/L 38 - 126 U/L [facility] ALT [Catalytic activity/Vol] 24 U/L 0 - 34 U/L [facility] AST [Catalytic activity/Vol] 33 U/L 15 - 46 U/L [facility] Bilirubin [Mass/Vol] 0.8 mg/dL 0.2 - 1.3 mg/dL [facility] Bilirubin.conjugate d [Mass/Vol] 0.0 mg/dL 0.0 - 0.3 mg/dL [facility] Interpretation and review of laboratory results Normal [facility] Protein [Mass/Vol] 7.7 g/dL 6.3 - 8.2 g/dL [facility] No Panel Informationon 07-07 [facility] Urinalysis complete panel (U )on 07-07-2023 Bacteria LM.HPF (Urine sed) [#/Area] Negative Negative /HPF [facility] Bilirubin Ql (U) Negative Negative mg/dL [facility] Clarity (U) Clear Clear [facility] Color (U) Colorless Lt. Yellow [facility] Epithelial cells.squamous LM.HPF (Urine sed) [#/Area] 0-2 [facility] Glucose Ql (U) Normal Normal (<70) mg/dL [facility] Hemoglobin Ql (U) 0.03 mg/dL Abnormal Negative [facility] Interpretation and review of laboratory results Abnormal [facility] Ketones (U) [Mass/Vol] Negative Negative mg/dL [facility] Leukocyte esterase Test strip Ql (U) Negative Negative Heriberto/uL [facility] Nitrite Ql (U) Negative Negative [facility] pH (U) 7.0 [pH] 5.0 - 8.0 pH [facility] Protein (U) [Mass/Vol] Negative Negative mg/dL [facility] RBC LM.HPF (Urine sed) [#/Area] Negative [facility] Specific gravity (U) [Rel density] 1.006 1.005 - 1.030 [facility] Urobilinogen (U) [Mass/Vol] Normal Normal (0-1) mg/dL [facility] Volume, Urine 12 mL [facility] h WBC LM.HPF (Urine sed) [#/Area] Negative [facility] 36on 06-12-2023 36 Pt needs a flip in [place]. Pt prefers a or Monday in August. Sutab prep. Normal [facility] 36 Will see as scheduled. Normal [facility] 36 S: Patient spoke wit h CAC nurse regarding sinus congestion B: Onset of symptoms/concern started 3 days ago A: Patient states she is having sinus congestion that started on Monday. Had a fever on Monday. Coughing a lot at night and when gets up. Rates sinus pain as mild and has been using night quil OTC and nasal spray afrin. Ears feel full but no ear pain. Having a sore throat as well. Took COVID test on Monday and it was negative has not repeated it. Denies any shortness of breath. Patient advised to repeat COVID test and states she will, if positive will call back and let staff know prior to appointment. R: Appointment scheduled for today in office as would like to come in today at 9:40am with [place]. Will wear mask to appointment. Insurance verified. Patient given care advice per protocol. Patient understands care advice. No further needs at this time. Patient instructed to call back with new or worsening symptoms. Reason for Disposition Patient wants to be seen Protocols used: Sinus Pain or [id number] [facility] Office Visiton 06-12-2023 Follow-up visit [id number] Yareli Jarayonathan Brand 1955 Date Provider Department Center 06/12/2023 [id number] PEREIRA [facility] [place] None Family History Problem Relation Age of Onset Cervical cancer Mother Cancer Brother Diabetes Mother's Sister Breast cancer Mother's Sister Heart disease Mother's Sister Crohn's disease Neg Hx Colon cancer Neg Hx Family Status - Relation Status Age at Mother Brother Other Notes: leukemia Mother's Sister Neg Hx Level of Service:55259 HI OFFICE/OUTPATIENT NEW MODERATE MDM 45 MINUTES Reason for Visit and Comments: New Patient [542] GERD [[id number]] [facility] Follow-up visit [id number] MarekShayla Brand 1955 Date Provider Department Center 06/12/2023 [id number] HALE [facility] Family History Problem Relation Age of Onset Diabetes Mother's Sister Breast cancer Mother's Sister Cervical cancer Mother Heart disease Mother's Sister Cancer Brother Family Status - Relation Status Age at Mother's Sister Mother Brother Other Notes: leukemia Level of Service:49202 HI OFFICE/OUTPATIENT ESTABLISHED LOW MDM 20 MIN Reason for Visit and Comments: Sinus Problem [99] - Onset monday [facility] PATINSon 01-15-2024 PATINS --Please call office with any questions or concerns! [phone] --request prior EGD report and path from Dr. Ying --Schedule EGD (upper endoscopy) and colonoscopy for further evaluation of the symptoms. --A prescription for Sutab was sent to your pharmacy. This is the bowel prep for your colonoscopy. --continue omeprazole 40 mg daily. --Avoid nonsteroidal anti-inflammatory (NSAID) medications such as ibuprofen (Advil), naproxen (Aleve), etc. These can contribute to abdominal pain and ulcers. Take Tylenol (acetaminophen) instead if needed for pain by following the instructions on the bottle. --Please see handout provided regarding additional recommendations for the symptoms including when to seek emergency care or further treatment. --Follow-up with PCP, and in GI clinic as needed pending results of above. Normal [facility] Progress Noteon 06-12-2023 Progress Note [facility] [address] [place] [address] Dept: [phone] Dept Loc: [phone] Visit type: New Reason for Visit: New Patient and GERD Assessment and Plan Problem List Items Addressed This Visit None Visit Diagnoses Gastroesophageal reflux disease, unspecified whether esophagitis present - Primary History of colon polyps Relevant Medications Sodium Sulfate-Mag Sulfate-KCl (Sutab) 6517-071-726 MG tablet Hiatal hernia GERD/Hiatal hernia --symptoms improved with omeprazole 40 mg q day-continue at this time --request copy of most recent EGD from Dr. Ying (per patient ~ 6 years ago); hx HH per patient report --limit NSAIDs --schedule EGD for further evaluation of symptoms --diet EDU printed Hx Colon Polyps --schedule colonoscopy for surveillance of colon polyps --last colonoscopy 09/2018 --patient requests pill prep; Rx for Sutab sent to pharmacy Advised patient to call office with new or worsening symptoms, questions, or concerns. Patient verbalized understanding and agreement of plan. Follow up if symptoms worsen or fail to improve. Subjective Patient is referred by Quinton Bliss APRN-ZARINA, re: GERD and screening for colon cancer. Patient reports in January was in [facility], ate monegasque food that she did not feel was spicy, but subsequently developed chest burning that persisted. Had significant indigestion lasting more than one month. She was started on omeprazole 40 mg q day with improvement in symptoms in February. She is continuing to take omeprazole 40 mg q day. Notes she has diagnosis of hiatal hernia-occasional upper abdominal pain which she attributes to hernia. Thinks last EGD ~ 6 years ago. Denies nausea, vomiting, dysphagia, and weight-loss. Uses ibuprofen daily for arthritis. GERD She reports no abdominal pain, no chest pain or no nausea. Last colonoscopy 09/2018-diverticulosis and internal hemorrhoids; polyps on previous colonoscopy; repeat exam recommended in 5 years. Patient notes she took pills for prior bowel prep-has vomiting with liquid solution. Bowels are moving daily. Stool is formed. Denies hematochezia and melena. Uses Fibercon daily. No tobacco use. No EtOH use. Takes ASA 81 mg q day. No supplemental oxygen use. Review of Systems Constitutional: Negative for appetite change and unexpected weight change. HENT: Negative for trouble swallowing and voice change. Respiratory: Negative for shortness of breath. Cardiovascular: Negative for chest pain. Gastrointestinal: Negative for abdominal distention, abdominal pain, anal bleeding, blood in stool, constipation, diarrhea, nausea, rectal pain and vomiting. +heartburn, indigestion Genitourinary: Negative for difficulty urinating. Skin: Negative for color change. Neurological: Negative for weakness. No Known Allergies Outpatient Medications Prior to Visit Medication Sig Dispense Refill amoxicillin-clavulanate (Augmentin) 875-125 MG tablet Take 1 tablet by mouth 2 times daily for 7 days. 14 tablet 0 aspirin 81 MG EC tablet Take 81 mg by mouth in the morning. brompheniramine-pseudoep hedrine-DM 30-2-10 MG/5ML syrup Take 5 mL by mouth 3 times daily as needed for cough or congestion for up to 10 days. 120 mL 0 cholecalciferol (Vitamin D-3) 50 MCG (2000 UT) capsule Take by mouth. Cyanocobalamin 100 MCG lozenge Take by mouth. diphenhydrAMINE-acetamin ophen (Tylenol PM Extra Strength) 25-500 MG per tablet Take 1 tablet by mouth every 24 hours as needed. ipratropium (Atrovent) 0.06 % nasal spray Administer 2 sprays into each nostril 3 times daily for 7 days. 15 mL 0 loratadine (Claritin) 10 MG tablet Take 10 mg by mouth in the morning. losartan (Cozaar) 50 MG tablet TAKE 1 TABLET DAILY 90 tablet 1 Naproxen Sodium 220 MG capsule Take by mouth. omega-3 (Fish Oil) 1000 MG capsule Take 3,000 mg by mouth. omeprazole (PriLOSEC) [address] capsule Take 1 capsule (40 mg) by mouth every morning (before breakfast). Do not crush or chew. 90 capsule 1 rosuvastatin (Crestor) 5 MG tablet TAKE 1 TABLET DAILY 90 tablet 1 No facility-administered medications prior to visit. Patient Active Problem List Diagnosis Date Noted Class 2 obesity due to excess calories without serious comorbidity with body mass index (BMI) of 38.0 to 38.9 in adult 02/17/2021 Hyperlipidemia LDL goal <100 08/12/2020 Essential hypertension 08/12/2020 Arthritis of left knee 08/12/2020 Social History Tobacco Use Smoking status: Never Smokeless tobacco: Never Substance Use Topics Alcohol use: Never Family History Problem Relation Name Age of Onset Cervical cancer Mother Cancer Brother Diabetes Mother's Sister Breast cancer Mother's Sister Heart disease Mother's Sister Crohn's disease Neg Hx Colon cancer Neg Hx Objective BP (!) 156/81 Temp 36.2 ?C (97.2 ?F) Ht 5' 2 (1.575 m) Wt 2 (more content not included)... Normal [facility] Progress Note 06/12/2023 Shayla Jara (: 1955) is a 67 y.o. female , Established patient, here for evaluation of the following chief complaint(s): Sinus Problem (Onset monday) ASSESSMENT/PLAN: 1. URI with cough and congestion - brompheniramine-pseudoep hedrine-DM 30-2-10 MG/5ML syrup; Take 5 mL by mouth 3 times daily as needed for cough or congestion for up to 10 days., Starting 06/12/2023, Until Yulissa 06/22/2023 at 2359, Normal - amoxicillin-clavulanate (Augmentin) 875-125 MG tablet; Take 1 tablet by mouth 2 times daily for 7 days., Starting 06/12/2023, Until Mon06/19/2023, Normal - Educated that symptoms are most likely viral and an antibiotic is not recommended at this time. Rx sent for Augmentin to have on standby if symptoms are not improving within 4-5 days- verbalized understanding. - Saline nasal spray for congestion. - Encouraged increasing oral fluids to keep mucous secretions moist. - May use Tylenol/Motrin as needed for pain relief. - Sleep with humidified air. Follow up in 3 months (on 09/13/2023) for Next scheduled follow-up. SUBJECTIVE/OBJECTIVE: ALFONSO - Shayla presents today with concerns of sinus congestion that started about 3 days ago. She had a temperature of 99.6 F two days ago. Is also experiencing a productive cough (dark yellow) with sinus pressure/pain and a sore throat. Has been taking NyQuil OTC and Afrin nasal spray. Took a home COVID-19 test two days ago that was negative. Temperature is 98.8 F at the time of her visit and has not had any Tylenol or Motrin prior to her appointment. See ROS for additional information. Review of Systems Constitutional: Positive for chills and fever. HENT: Positive for congestion, rhinorrhea, sinus pressure, sinus pain and sore throat. Negative for ear discharge, ear pain and trouble swallowing. Respiratory: Positive for cough. Negative for chest tightness, shortness of breath and wheezing. Cardiovascular: Negative for chest pain. Vitals: 06/12/23 0938 06/12/23 0950 BP: (!) 153/76 134/86 Pulse: 90 Temp: 37.1 ?C (98.8 ?F) TempSrc: Oral SpO2: 97% Weight: 209 lb 12.8 oz (95.2 kg) Height: 5' 2 (1.575 m) Body mass index is 38.37 kg/m?. Physical Exam Constitutional: General: She is not in acute distress. Appearance: She is not ill-appearing or diaphoretic. HENT: Head: Normocephalic and atraumatic. Right Ear: Tympanic membrane, ear canal and external ear normal. Left Ear: Tympanic membrane, ear canal and external ear normal. Nose: Congestion and rhinorrhea present. Rhinorrhea is clear. Right Turbinates: Swollen. Left Turbinates: Swollen. Mouth/Throat: Lips: [employer]. Mouth: Mucous membranes are moist. Pharynx: Oropharynx is clear. No pharyngeal swelling, oropharyngeal exudate or posterior oropharyngeal erythema. Tonsils: No tonsillar exudate. Cardiovascular: Rate and Rhythm: Normal rate and regular rhythm. Heart sounds: Normal heart sounds. No murmur heard. No friction rub. Pulmonary: Effort: Pulmonary effort is normal. Breath sounds: Normal breath sounds. No wheezing, rhonchi or rales. Lymphadenopathy: Head: Right side of head: No tonsillar adenopathy. Left side of head: No tonsillar adenopathy. Cervical: No cervical adenopathy. Skin: General: Skin is warm and dry. Coloration: Skin is not pale. Findings: No erythema or rash. Neurological: Mental Status: She is alert and oriented to person, place, and time. Psychiatric: Mood and Affect: Mood normal. Behavior: Behavior normal. Thought Content: Thought content normal. Judgment: Judgment normal. An electronic signature was used to authenticate this note. JULISSA Hewitt CNP 06/12/2023 9:54 AM Normal [facility] Progress Note Patient was verified by name and . Normal [place] [id number] 03-29-2023 36 Notified. Normal [place] [id number] 03-27-2023 36 Called Shayla, no an swer and no vm. Per Quinton: Stable screening mammogram. Repeat in 1 year. Normal [facility] Vital Signs Date Time Vital Sign Value Performing Clinician Nicol reyes 03-18-2024 14:15-0400 Body height 157.5 cm Quinton Rodgers CNP Work Phone: [facility] [employer] 03-18-2024 14:15-0400 Body mass index (BMI) [Ratio] 36.32 kg/m2 Quinton Bliss APRN - METAL DRILL OPERATOR Work Phone: [facility] [employer] 03-18-2024 14:15-0400 Body weight 90.08 kg Quinton Bliss APRN - ZARINA Work Phone: [facility] [employer] 03-18-2024 14:15-0400 Diastolic blood pressure 84 mm[Hg] Quinton Bliss APRN - ZARINA Work Phone: [facility] [employer] 03-18-2024 14:15-0400 Heart rate 86 /min Quinton Izaiah [employer] PRODUC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 Work Phone: [employer] 03-18-2024 14:15-0400 SaO2% (BldA) [Mass fraction] 96 % Quinton Izaiah [employer] PRODUC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 Work Phone: [employer] 03-18-2024 14:15-0400 Systolic blood pressure 120 mm[Hg] Quinton Izaiah [employer] PRODUC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 Work Phone: [employer] 09-14-2023 10:20-0400 Body temperature 97.2 [degF] Veysel [employer] Work Phone: [employer] 09-14-2023 10:20-0400 Diastolic blood pressure 76 mm[Hg] Veysel Tahan Work Phone: [employer] 09-14-2023 10:20-0400 Heart rate 71 /min TAXI[employer]plysel Tahan Work Phone: [employer] 09-14-2023 10:20-0400 Respiratory rate 16 /min Veysel [employer] Work Phone: [employer] 09-14-2023 10:20-0400 SaO2% (BldA) [Mass fraction] 100 % Veysel [employer] Work Phone: [employer] 09-14-2023 10:20-0400 Systolic blood pressure 139 mm[Hg] TAXI[employer]plysel Tahan Work Phone: [employer] 09-14-2023 08:59-0400 Body height 157.5 cm Veysel Tahan Work Phone: [employer] 09-14-2023 08:59-0400 Body mass index (BMI) [Ratio] 36.95 kg/m2 Veysel Tahan Work Phone: [employer] 09-14-2023 08:59-0400 Body weight 91.63 kg Veysel Tahan Work Phone: [employer] 09-13-2023 14:29-0400 Diastolic blood pressure 88 mm[Hg] Quinton Bliss [employer] PRODUC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 Work Phone: [employer] 09-13-2023 14:29-0400 Systolic blood pressure 136 mm[Hg] Quinton Bliss [employer] PRODUC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 Work Phone: [facility] [employer] 09-13-2023 14:12-0400 Body height 157.5 cm Quinton Bliss [employer] PRODUC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 Work Phone: [facility] [employer] 09-13-2023 14:12-0400 Body mass index (BMI) [Ratio] 37.09 kg/m2 Quinton Bliss [employer] PRODUC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 Work Phone: [facility] [employer] 09-13-2023 14:12-0400 Body weight 91.99 kg Quinton Bliss [employer] PRODUC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 Work Phone: [facility] [employer] 09-13-2023 14:12-0400 Heart rate 88 /min Quinton Bliss [employer] PRODUC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 Work Phone: [facility] [employer] 09-13-2023 14:12-0400 SaO2% (BldA) [Mass fraction] 95 % Quinton Bliss [employer] PRODUC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 Work Phone: [facility] [employer] 07-11-2023 14:54-0500 Body mass index (BMI) [Ratio] 37.75 kg/m2 Lila Rafaelenthal [employer] PRODUC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 Work Phone: [facility] [employer] 07-11-2023 14:54-0500 Body temperature 97.3 [degF] Lila Bridenthal [employer] PRODUC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 Work Phone: [facility] [employer] 07-11-2023 14:54-0500 Body weight 93.62 kg Lila Bridenthal [employer] PRODUC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 Work Phone: [facility] [employer] 07-11-2023 14:54-0500 Diastolic blood pressure 80 mm[Hg] Lila Bridenthal [employer] PRODUC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 Work Phone: [facility] [employer] 07-11-2023 14:54-0500 Heart rate 73 /min Lila Bridenthal [employer] PRODUC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 Work Phone: [facility] [employer] 07-11-2023 14:54-0500 SaO2% (BldA) [Mass fraction] 94 % Lila Bridenthal [employer] PRODUC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 Work Phone: [facility] [employer] 07-11-2023 14:54-0500 Systolic blood pressure 120 mm[Hg] Lilachrissy Hallenthal [employer]AST PRODUC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 Work Phone: [facility] [employer] 07-07-2023 13:26-0500 Diastolic blood pressure 74 mm[Hg] Vinicio Gómez MD Work Phone: [facility] [employer] 07-07-2023 13:26-0500 Heart rate 75 /min Vinicio Gómez MD Work Phone: [employer] 07-07-2023 13:26-0500 Respiratory rate 16 /min Vinicio Gómez MD Work Phone: [facility] [employer] 07-07-2023 13:26-0500 SaO2% (BldA) [Mass fraction] 96 % Vinicio Gómez MD Work Phone: [facility] [employer] 07-07-2023 13:26-0500 Systolic blood pressure 134 mm[Hg] Vinicio Gómez MD Work Phone: [facility] [employer] 07-07-2023 11:15-0500 Body height 157.5 cm Vinicio Gómez MD Work Phone: [facility] [employer] 07-07-2023 11:15-0500 Body mass index (BMI) [Ratio] 36.58 kg/m2 Vinicio Gómez MD Work Phone: [facility] [employer] 07-07-2023 11:15-0500 Body temperature 98.29 [degF] Vinicio Gómez MD Work Phone: [facility] [employer] 07-07-2023 11:15-0500 Body weight 90.72 kg Vinicio Gómez MD Work Phone: [employer] 06-12-2023 12:40-0500 Body height 157.5 cm Stanton Jammcard [employer] PRODUC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 Work Phone: [employer] 06-12-2023 12:40-0500 Body mass index (BMI) [Ratio] 38.85 kg/m2 Stanton Jammcardnaima [employer]SCAST PRODUC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 Work Phone: [facility] [employer] 06-12-2023 12:40-0500 Body temperature 97.2 [degF] Jian Acevedo [employer] PRODUC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 Work Phone: [facility] [employer] 06-12-2023 12:40-0500 Body weight 96.34 kg Jian Acevedo [employer] PRODUC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 Work Phone: [facility] [employer] 06-12-2023 12:40-0500 Diastolic blood pressure 81 mm[Hg] Jian Acevedo [employer] PRODUC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 Work Phone: [facility] [employer] 06-12-2023 12:40-0500 Systolic blood pressure 156 mm[Hg] Jian Acevedo [employer] PRODUC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 Work Phone: [facility] [employer] 06-12-2023 09:50-0500 Diastolic blood pressure 86 mm[Hg] Quinton Bliss [employer] PRODUC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 Work Phone: [facility] [employer] 06-12-2023 09:50-0500 Systolic blood pressure 134 mm[Hg] Quinton Bliss [employer] PRODUC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 Work Phone: [facility] [employer] 06-12-2023 09:38-0500 Body height 157.5 cm Quinton Bliss [employer]AST PRODUC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 Work Phone: [facility] [employer] 06-12-2023 09:38-0500 Body mass index (BMI) [Ratio] 38.37 kg/m2 Quinton Bliss [employer]AST PRODUC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 Work Phone: [facility] [employer] 06-12-2023 09:38-0500 Body temperature 98.8 [degF] Quinton Bliss NEWSCAST PRODUC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 Work Phone: [facility] [employer] 06-12-2023 09:38-0500 Body weight 95.17 kg Quinton Izaiah [employer]AST PRODUC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 Work Phone: [facility] [employer] 06-12-2023 09:38-0500 Heart rate 90 /min Quinton Izaiah [employer] PRODUC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 Work Phone: [facility] [employer] 06-12-2023 09:38-0500 SaO2% (BldA) [Mass fraction] 97 % Quinton Bliss [employer]AST PRODUC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 Work Phone: [employer] 03-13-2023 14:19-0400 Body height 157.5 cm Quinton Blsis [employer]AST PRODUC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 Work Phone: [facility] [employer] 03-13-2023 14:19-0400 Body mass index (BMI) [Ratio] 38.59 kg/m2 Quinton Bliss [employer]SCAST PRODUC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 Work Phone: [facility] [employer] 03-13-2023 14:19-0400 Body temperature 97.81 [degF] Quinton Bliss [employer]AST PRODUC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 Work Phone: [employer] 03-13-2023 14:19-0400 Body weight 95.71 kg Quinton Bliss NEW[employer]AST PRODUC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 Work Phone: [facility] [employer] 03-13-2023 14:19-0400 Diastolic blood pressure 77 mm[Hg] Quinton Bliss [employer] PRODUC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 Work Phone: [facility] [employer] 03-13-2023 14:19-0400 Heart rate 89 /min Quinton Bliss [employer] PRODUC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 Work Phone: [employer] 03-13-2023 14:19-0400 Respiratory rate 18 /min Quinton Bliss NEWSCAST PRODUC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 Work Phone: [facility] [employer] 03-13-2023 14:19-0400 SaO2% (BldA) [Mass fraction] 94 % Quinton Bliss [employer]SCAST PRODUC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 Work Phone: [facility] [employer] 03-13-2023 14:19-0400 Systolic blood pressure 118 mm[Hg] Quinton Bliss [employer]SCAST PRODUC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 Work Phone: [employer] 08-17-2022 13:29-0400 Body height 157.5 cm Quinton Bliss [employer]SCAST PRODUC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 Work Phone: [facility] [employer] 08-17-2022 13:29-0400 Body mass index (BMI) [Ratio] 37.13 kg/m2 Quinton Bliss [employer]SCAST PRODUC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 Work Phone: [employer] 08-17-2022 13:29-0400 Body weight 92.08 kg Quinton Bliss [employer]AST PRODUC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 Work Phone: [facility] [employer] 08-17-2022 13:29-0400 Diastolic blood pressure 82 mm[Hg] uQinton Bliss [employer]SCAST PRODUC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 Work Phone: [employer] 08-17-2022 13:29-0400 Heart rate 85 /min Quinton Bliss [employer]AST PRODUC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 Work Phone: [facility] [employer] 08-17-2022 13:29-0400 Respiratory rate 16 /min Quinton Bliss NEWSCAST PRODUC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 Work Phone: [facility] [employer] 08-17-2022 13:29-0400 SaO2% (BldA) [Mass fraction] 96 % Quinton Bliss NEWSCAST PRODUC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 Work Phone: [facility] [employer] 08-17-2022 13:29-0400 Systolic blood pressure 138 mm[Hg] Quinton Bliss NEWSCAST PRODUC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 Work Phone: [facility] [employer] Encounters Encounter Date Encounter Type Care Provider Facility Start: 03-18-2024 End: 03-18-2024 Manual pelvic examination Quinton Bliss [employer] PRODUC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 Work Phone: [facility] Start: 03-18-2024 End: 03-18-2024 Patient encounter status Quinton Bliss [employer] PRODUC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 [facility] Work Phone: Start: 03-18-2024 End: 03-18-2024 Patient encounter procedure Quinton Bliss [employer]SCAST PRODUC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 Work Phone: [facility] [employer] [facility] Comment on above: Medicare annual well ness visit, subsequent (Primary Dx); Hypercholesterolemia; Primary hypertension; Class 2 obesity due to excess calories without serious comorbidity with body mass index (BMI) of 36.0 to 36.9 in adult; Arthritis of left knee; Gastroesophageal reflux disease, unspecified whether esophagitis present Well female exam wit h routine gynecological exam (Primary Dx); Encounter for Papanicolaou smear for cervical cancer screening; Screening mammogram for breast cancer Start: 03-18-2024 End: 03-18-2024 ambulatory QUINTON BLISS [facility] Start: 03-18-2024 End: 03-18-2024 Encounter for general adult medical examination without abnormal findings QUINTON BLISS [facility] Start: 03-18-2024 End: 03-18-2024 Encounter for gynecological examination (general) (routine) without abnormal findings QUINTON BLISS [facility] Start: 03-13-2024 End: 03-13-2024 Office outpatient visit 25 minutes Perla Johnston PA-C Work Phone: [facility] Dermatology - Ron Chinchilla Comment on above: Sweeney angioma (Prim gerber Dx); Neoplasm of uncertain behavior of skin; Seborrheic keratosis; History of nonmelanoma skin cancer; Encounter for skin care Start: 03-13-2024 End: 03-13-2024 ambulatory [facility] Start: 01-19-2024 End: 01-19-2024 Office outpatient visit 15 minutes Perla Johnston PA-C Work Phone: [facility] Dermatology Comment on above: Multiple benign reece nocytic nevi of both upper extremities, both lower extremities, and trunk; Hemangioma of skin; Seborrheic keratosis; Solar lentigo; Skin lesion; History of nonmelanoma skin cancer; Encounter for skin care Start: 01-19-2024 End: 01-19-2024 ambulatory [facility] Start: 09-14-2023 End: 09-14-2023 ambulatory ARELI JIMI [facility] Start: 09-14-2023 End: 09-14-2023 Subsequent hospital visit by physician Misbah Waters Work Phone: [facility] Endoscopy Comment on above: Gastro-esophageal re flux disease without esophagitis; Personal history of colonic polyps; Diaphragmatic hernia without obstruction or gangrene Start: 09-13-2023 End: 09-13-2023 Office outpatient visit 25 minutes Quinton Bliss 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 Work Phone: [facility] Family Medicine Comment on above: Hypercholesterolemia (Primary Dx); Primary hypertension; Class 2 obesity due to excess calories without serious comorbidity with body mass index (BMI) of 37.0 to 37.9 in adult; Arthritis of left knee; Gastroesophageal reflux disease, unspecified whether esophagitis present Start: 09-13-2023 End: 09-13-2023 ambulatory QUINTON BLISS [facility] Start: 08-30-2023 Telephone encounter Jian lomas 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 Work Phone: [facility] Gastroenterology Comment on above: Sutab Start: 07-26-2023 Telephone encounter Roxanne Brand [facility] Gastroenterology Comment on above: Release of Informati on Start: 07-11-2023 End: 07-11-2023 Office outpatient visit 15 minutes Lila Link 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 Work Phone: [facility] Family Medicine Comment on above: Diverticulitis (Prim gerber Dx) Start: 07-11-2023 End: 07-11-2023 ambulatory EDER SESAY [facility] Start: 07-07-2023 End: 07-07-2023 Subsequent hospital visit by physician [facility] Exam Room [address] [facility] [address] Comment on above: Arrived Start: 07-07-2023 End: 07-07-2023 Emergency department patient visit Vinicio Gómez MD Work Phone: [facility] ED Comment on above: Diverticulitis (Prim gerber Dx); Lower abdominal pain Start: 06-12-2023 End: 06-12-2023 ambulatory Sophie Thomas RN [facility] Clinical Communication Start: 06-12-2023 Patient encounter procedure Colleen Thomas RN [facility] Clinical Communication Start: 06-12-2023 Telephone encounter Bronwyn sharp MA [facility] Gastroenterology Comment on above: Colonoscopy/EGD Start: 06-12-2023 End: 06-12-2023 Office outpatient new 45 minutes Jian Acevedo 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 Work Phone: [facility] Gastroenterology Comment on above: Gastroesophageal ref lux disease, unspecified whether esophagitis present (Primary Dx); History of colon polyps; Hiatal hernia Start: 06-12-2023 End: 06-12-2023 Office outpatient visit 15 minutes Quinton Bliss 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 Work Phone: [facility] Family Medicine Comment on above: URI with cough and c ongestion (Primary Dx) Start: 03-23-2023 Telephone encounter Lila Link 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 Work Phone: [facility] Medicine Comment on above: Results Start: 03-13-2023 End: 03-13-2023 Patient encounter procedure Quinton Bliss 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 Work Phone: [facility] Family Medicine Comment on above: Medicare annual well ness visit, subsequent (Primary Dx); Essential hypertension; Arthritis of left knee; Class 2 obesity due to excess calories without serious comorbidity with body mass index (BMI) of 38.0 to 38.9 in adult; Hyperlipidemia LDL goal <100; Nocturnal leg cramps; Gastroesophageal reflux disease, unspecified whether esophagitis present; Flu vaccine need; Screening for colon cancer; Screening for diabetes mellitus Start: 01-12-2023 End: 01-12-2023 Office outpatient visit 25 minutes Perla DIANAC Work Phone: [facility] Dermatology Comment on above: History of nonmelano ma skin cancer; Sweeney angioma; Seborrheic keratosis; Multiple benign melanocytic nevi of both upper extremities, both lower extremities, and trunk Start: 01-11-2023 Refill Quinton Bliss 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 Work Phone: [facility] Start: 08-17-2022 End: 08-17-2022 Office outpatient visit 25 minutes Quinton Bliss 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 Work Phone: [facility] Medicine Comment on above: Hyperlipidemia LDL g oal <100 (Primary Dx); Essential hypertension; Class 2 obesity due to excess calories without serious comorbidity with body mass index (BMI) of 38.0 to 38.9 in adult; Lesion of skin of nose Procedures Date Procedure Procedure Detail Performing Clinician Start: 03-18-2024 Lipid 1996 panel - S leann or Plasma Perla Johnston PA-C Work Phone: Start: 03-17-2024 Adult depression scr eening assessment Quinton Bliss 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 Work Phone: Start: 03-13-2024 End: 03-13-2024 SKIN / NAIL BIOPSY Perla Johnston PA-C Work Phone: Start: 03-13-2024 Level iv surg pathol ogy gross&microscopic exam Perla Johnston PA-C Work Phone: Start: 09-14-2023 Colonoscopy Veysel Musa an Work Phone: Start: 07-07-2023 Ct abdomen & pelvis w/contrast material Vinicio Gómez MD Work Phone: Start: 07-07-2023 Urinalysis complete panel - Urine Vinicio Gómez MD Work Phone: Start: 07-07-2023 Urnls dip stick/tabl et reagent auto microscopy Vinicio Gómez MD Work Phone: Start: 07-07-2023 Basic metabolic pane l calcium total Vinicio Gómez MD Work Phone: Start: 03-24-2023 Mammography Sophie wise RN Start: 03-15-2023 Lipid 1996 panel - S leann or Plasma Lila Odalisal 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 Work Phone: Start: 03-13-2023 Adult depression scr eening assessment Quinton Bliss [employer]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 Work Phone: Start: 08-17-2022 Lipid 1996 panel - S leann or Plasma Quinton Bliss [employer]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 Work Phone: Start: 03-22-2022 Mammography Quinton marcelo 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 Work Phone: Start: 08-16-2021 Lipid 1996 panel - S leann or Plasma Quinton Bliss [employer]UC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 Work Phone: Start: 10-25-2018 Colonoscopy Quinton marcelo 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 Work Phone: Plan of Treatment Date Care Activity Detail Author Start: 04-09-2032 DTaP/Tdap/Td Vaccines (4 - Td or Tdap) DTaP/Tdap/Td Vaccines (4 - Td or Tdap) [facility] Start: 03-18-2029 Lipid panel Lipid Panel [facility] Start: 09-13-2028 Screening for malignant neoplasm of colon [facility] Start: 03-15-2028 Lipid panel Lipid Panel [facility] Start: 08-18-2027 Lipid panel Lipid Panel [facility] Start: 08-16-2026 Lipid panel Lipid Panel [facility] Start: 04-17-2025 Medicare Annual Wellness (AWV) Medicare Annual Wellness (AWV) [facility] Start: 03-18-2025 Diabetes mellitus screening Diabetes Screening [facility] Start: 03-17-2025 Depression Screening Depression Screening [facility] Start: 01-21-2025 End: 01-21-2025 Patient encounter procedure [facility] Start: 09-16-2024 End: 09-16-2024 Patient encounter procedure 09/16/2024 1:40 PM EDT Office Visit [facility] [address] [place] [address] Quinton Bliss S, [employer]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 [address] [place] [address] [facility] Start: 09-12-2024 Examination of skin Derm Melanoma Skin Check [facility] Start: 09-12-2024 Hepatitis C screening Hepatitis C Screening [facility] Comment on above: Postponed from 08/09/1973 (Patient Refus ed) Start: 08-16-2024 Diabetes mellitus screening Diabetes Screening [facility] Start: 04-12-2024 Medicare Annual Wellness (AWV) Medicare Annual Wellness (AWV) [facility] Start: 03-24-2024 Screening for malignant neoplasm of breast Mammogram [facility] Start: 03-18-2024 End: 03-18-2024 Patient encounter procedure [facility] Start: 03-18-2024 End: 05-18-2025 DBT Breast - bilateral screening Bilateral screening mammogram with tomosynthesis Imaging Routine Screening mammogram for breast cancer Expected: 03/18/2024, Expires: 05/18/2025 [facility] Comment on above: Expected: 03/18/2024, Expires: Start: 03-15-2024 Diabetes mellitus screening Diabetes Screening [facility] Start: 03-13-2024 Depression Screening Depression Screening [facility] Start: 01-28-2024 Influenza vaccination Influenza Vaccine (#1) [facility] Start: 01-16-2024 End: 01-16-2024 Patient encounter procedure 01/16/2024 1:00 PM EDT Office Visit [facility] [address] [place] [id number] Perla Johnston PA-C [address] [place] [address] [facility] Start: 10-26-2023 Screening for malignant neoplasm of colon [facility] Start: 09-14-2023 End: 09-14-2023 Admission to same day surgery center [facility] Endoscopy Comment on above: ESOPHAGOGASTRODUODENOSCOPY DIAGNOSTIC/ C OLONOSCOPY [54815 (CPT )] ESOPHAGOGASTRODUODEN OSCOPY and COLONOSCOPY With Possible Biopsy/ Polypectomy/ Coagulation/ Electrocautery/ Endotracheal Intubation/ Anesthesia [97078 (CPT )] Start: 09-14-2023 Subsequent hospital visit by physician [facility] Endoscopy Start: 09-14-2023 End: 09-14-2023 Colonoscopy flx dx w/collj spec when pfrmd [facility] Gastroenterology Start: 09-14-2023 End: 09-14-2023 Esophagogastroduodenoscopy transoral diagnostic [facility] Gastroenterology Start: 09-13-2023 End: 09-13-2023 Patient encounter procedure 09/13/2023 2:20 PM EDT Office Visit [facility] [address] [place] [address] [place] [address] Quinton Bliss, [employer]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 [address] [place], [place] [id number] [facility] Start: 08-18-2023 Hepatitis B Vaccines (1 of 3 - 3-dose series) Hepatitis B Vaccines (1 of 3 - 3-dose series) [facility] Comment on above: Postponed from 1955 (Patient Refus ed) Start: 08-18-2023 Hepatitis C screening Hepatitis C Screening [facility] Comment on above: Postponed from 08/09/1973 (Patient Refus ed) Start: 2023 COVID-19 Vaccine ( season) COVID-19 Vaccine () [facility] Start: 04-10-2023 COVID-19 Vaccine (6 - Moderna series) COVID-19 Vaccine (6 - Moderna series) [facility] Comment on above: Postponed from 06/18/2022 (Patient Refus ed) Start: 03-22-2023 Screening for malignant neoplasm of breast Mammogram [facility] Start: 03-18-2023 Medicare Annual Wellness (AWV) Medicare Annual Wellness (AWV) [facility] Start: 03-15-2023 End: 03-15-2023 Clinical Support 03/15/2023 10:30 AM EDT Clinical Support [facility] [address] [place] [id number] [facility] Medicine Start: 03-13-2023 End: 03-13-2024 CBC panel - Blood by Automated count CBC Lab Routine Essential hypertension Arthritis of left knee Class 2 obesity due to excess calories without serious comorbidity with body mass index (BMI) of 38.0 to 38.9 in adult Hyperlipidemia LDL goal <100 Gastroesophageal reflux disease, unspecified whether esophagitis present Nocturnal leg cramps Expected: 03/13/2023 (Approximate), Expires: 03/13/2024 [facility] System Work Phone: Comment on above: Expected: 03/13/2023 (Approximate), Expi res: 03/13/2024 Start: 03-13-2023 End: 03-13-2024 Comprehensive metabolic 1998 panel - Serum or Plasma Comprehensive metabolic panel Lab Routine Hyperlipidemia LDL goal <100 Gastroesophageal reflux disease, unspecified whether esophagitis present Nocturnal leg cramps Essential hypertension Arthritis of left knee Class 2 obesity due to excess calories without serious comorbidity with body mass index (BMI) of 38.0 to 38.9 in adult Screening for diabetes mellitus Expected: 03/13/2023 (Approximate), Expires: 03/13/2024 [facility] [employer] Comment on above: Expected: 03/13/2023 (Approximate), Expi res: 03/13/2024 Start: 03-13-2023 End: 03-13-2024 Lipid 1996 panel - Serum or Plasma Lipid panel Lab Routine Hyperlipidemia LDL goal <100 Expected: 03/13/2023 (Approximate), Expires: 03/13/2024 [facility] [employer] Comment on above: Expected: 03/13/2023 (Approximate), Expi res: 03/13/2024 Start: 02-20-2023 End: 02-20-2023 Patient encounter procedure [facility] Start: 01-27-2023 Influenza vaccination Influenza Vaccine (#1) [facility] Start: 08-17-2022 End: 08-18-2023 CBC panel - Blood by Automated count CBC Lab Routine Hyperlipidemia LDL goal <100 Essential hypertension Class 2 obesity due to excess calories without serious comorbidity with body mass index (BMI) of 38.0 to 38.9 in adult Expected: 08/17/2022 (Approximate), Expires: 08/18/2023 [facility] [employer] Comment on above: Expected: 08/17/2022 (Approximate), Expi res: 08/18/2023 Start: 08-17-2022 End: 08-18-2023 Comprehensive metabolic 1998 panel - Serum or Plasma Comprehensive metabolic panel Lab Routine Hyperlipidemia LDL goal <100 Essential hypertension Class 2 obesity due to excess calories without serious comorbidity with body mass index (BMI) of 38.0 to 38.9 in adult Expected: 08/17/2022 (Approximate), Expires: 08/18/2023 [facility] [employer] System Work Phone: Comment on above: Expected: 08/17/2022 (Approximate), Expi res: 08/18/2023 Start: 08-17-2022 End: 08-18-2023 Lipid 1996 panel - Serum or Plasma Lipid panel Lab Routine Hyperlipidemia LDL goal <100 Expected: 08/17/2022 (Approximate), Expires: 08/18/2023 [facility] Comment on above: Expected: 08/17/2022 (Approximate), Expi res: 08/18/2023 Start: 08-16-2022 Diabetes mellitus screening Diabetes Screening [facility] Start: 1967 Depression Screening Depression Screening [facility] Start: 1955 Screening for malignant neoplasm of colon [facility] Cytology Cervical or vaginal smear or scraping study Pap Smear Pathology and Cytology Routine Encounter for Papanicolaou smear for cervical cancer screening Ordered: 03/18/2024 [facility] System Work Phone: Comment on above: Ordered: 03/18/2024 Tissue exam [facility] Sy stem Work Phone: Comment on above: Release Upon Ordering for 1 Occurrences starting 09/14/2023 Immunizations Immunization Date Immunization Notes Care Provider Fa gorgety 02-24-2024 influenza, high dose seasonal, preservative-free Quinton Bliss 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 Work Phone: [facility] 04-11-2023 COVID-19, mRNA, LNP- S, PF, lucretia-sucrose, 30 mcg/0.3 mL Sophie Thomas RN [facility] 04-11-2023 RSV, recombinant, pr otein subunit RSVpreF, adjuvant reconstituted, 0.5 mL, PF Sophie Thomas RN [facility] 03-13-2023 Influenza, Seasonal, Quadrivalent, Adjuvanted Quinton Bliss 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 Work Phone: [facility] 03-13-2023 influenza virus vacc ine, unspecified formulation Perla Johnston PA-C Work Phone: [facility] 04-09-2022 tetanus toxoid, redu ti diphtheria toxoid, and acellular pertussis vaccine, adsorbed Quinton Bliss [employer]UC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 Work Phone: [facility] 02-16-2022 Covid-19, Moderna Bi valent Booster, (Age 18y+), Im, 50 Mcg/d Quinton Bliss [employer]UC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 Work Phone: [facility] 02-16-2022 influenza virus vacc ine, unspecified formulation Quinton Bliss [employer]UC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 Work Phone: [facility] 02-16-2022 Pneumococcal Conjuga te PCV20, Pf (Prevnar 20) Quinton Bliss [employer]UC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 Work Phone: [facility] 03-23-2021 Influenza, High-dose Seasonal, Quadrivalent, Preservative Free Quinton Bliss [employer]UC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 Work Phone: [facility] [employer] 11-12-2020 zoster vaccine recombinant Julian Bliss [employer] PR[employer]UC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 Work Phone: [facility] 06-13-2020 zoster vaccine recombinant Julian Bliss [employer] PRODUC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 Work Phone: [facility] 02-28-2020 influenza virus vacc ine, unspecified formulation Quinton Bliss [employer] PRODUC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 Work Phone: [facility] [employer] 02-22-2020 Seasonal, quadrivale nt, recombinant, injectable influenza vaccine, preservative free Quinton Bliss [employer] PRODUC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 Work Phone: [facility] 03-09-2019 pneumococcal polysac charide vaccine, 23 valent Quinton Bliss [employer] PRODUC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 Work Phone: [facility] [employer] 03-09-2019 Seasonal, quadrivale nt, recombinant, injectable influenza vaccine, preservative free Quinton Bliss [employer] PRODUC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 Work Phone: [facility] 03-29-2017 tetanus toxoid, redu ti diphtheria toxoid, and acellular pertussis vaccine, adsorbed Quinton Bliss [employer] PRODUC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 Work Phone: [facility] 03-20-2008 tetanus toxoid, redu ti diphtheria toxoid, and acellular pertussis vaccine, adsorbed Quinton Bliss [employer] PRODUC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 Work Phone: [facility] [employer] Payers Date Payer Category Payer Medicare supplementa l policy (as second payer) [facility] [id number] 2022 Unknown AARP AARP xxxxxx [id number] 2022-Present [address] [place] [address] Supplement [id number] 2022 Unknown [id number] 2020 Medicare [id number] 2020 Medicare [id number] Social History Date Type Detail Facility Tobacco smoking status NHIS Never smoked tobacco [facility] Start: 08-17-2022 End: 09-15-2023 Alcohol intake Lifetime non-drinker (finding) [facility] Start: 04-09-2022 History SDOH Alcohol Frequency 1 [facility] Start: 04-09-2022 History SDOH Alcohol Std Drinks 0 [facility] Start: 1955 Sex Assigned At Female S [facility] Start: 08-07-2022 End: 01-12-2023 Exposure to SARS-CoV-2 (event) Not sure [facility] Start: 04-09-2022 End: 03-13-2023 History of Social function [facility] Start: 04-09-2022 End: 03-13-2023 Alcohol Use Disorder Identification Test - Consumption [AUDIT-C] [facility] How often to you hav e a drink containing alcohol? Never [facility] How many standard dr inks containing alcohol do you have on a typical day? Patient does not drink [facility] Start: 03-17-2022 Gender identity Identifies as female gender (finding) [facility] Start: 03-17-2022 Sexual orientation Heterosexual (fin juan luis) [facility] [employer] (I/We) worried wheth er (my/our) food would run out before (I/we) got money to buy more. Never true [facility] [employer] In the past 12 month s, was there a time when you were not able to pay the mortgage or rent on time? No [facility] Start: 12-27-2021 Sex Female (finding) [facility] Clinical Notes 08-17-2022 to 03-18-2024 Quinton Bliss APRN - ZARINA - 03/18/2024 3:00 PM Nain Pederson MA - 03/18/2024 3:00 PM Ilancatalino Marcelo JULISSA Bliss - ZARINA - 03/18/2024 2:20 PM Nain Pederson MA - 03/18/2024 2:20 PM EDTAttachments Note Date & Type Note Facility 03-18-2024 History of Present illness Narrative Images from the original note were not included. [facility] [address] [facility] [facility] [address] [facility] [address] Dept: [phone] Dept Loc: [phone] HPI: Shayla Jara is a 68 y.o. female who presents today for her medical conditions/complaints as noted below. Shayla Jara is c/o of Gynecologic Exam and Health Maintenance (Derm- already sees a wholesale representative /Flu- had done (02/26/2024) /7th Covid- had done 02/26/2024/Mammo-agrees) HPI- Shayla Jara presents today for her well female examination. No longer has menstrual cycles- has not had one since her early 50's. States her mother had cervical cancer so she wants to continue receiving pap smears for screening even though she is older than 65. Denies current concerns or worries. Health Maintenance: Performs self breast examinations; denies nipple discharge, nodules, or discoloration. Positive family history of breast cancer- maternal aunt. Last mammogram was - normal findings. Last pap smear was 03/13/23- normal findings. Declines screening for STI's. See ROS for additional information. Past Medical History: Diagnosis Date Acute non-recurrent frontal sinusitis 09/21/2022 Arthritis Basal cell carcinoma 2016 Diverticulitis 07/07/2023 Hiatal hernia History of blood clot in brain 1957 Hyperlipidemia Hypertension Nausea and vomiting 06/01/2022 Viral URI with cough 06/01/2022 Past Surgical History: Procedure Laterality Date COLONOSCOPY N/A 09/14/2023 Performed by Misbah Waters at [facility] ENDOSCOPY DILATION AND CURETTAGE OF UTERUS 1994 EGD COLONOSCOPY (HISTORICAL) 09/14/2023 ESOPHAGOGASTRODUODENOSCOPY and COLONOSCOPY With Possible Biopsy/ Polypectomy/ Coagulation/ Electrocautery/ Endotracheal Intubation/ Anesthesia DR. Waters SKIN BIOPSY 2016 Family History Problem Relation Name Age of Onset Cervical cancer Mother Krissy Bonds Arthritis Mother Krissy Bonds Stroke Mother Krissy Bonds Cancer Brother Khoa [place] Diabetes Mother's Sister Catia Galarza Breast cancer Mother's Sister Catia Galarza Heart disease Mother's Sister Catia Galarza Crohn's disease Neg Hx Colon cancer Neg Hx Social History Tobacco Use Smoking status: Never Smokeless tobacco: Never Substance Use Topics Alcohol use: Never E-cigarette/Vaping Questions Responses E-cigarette/Vaping Use Never User Current Outpatient Medications Medication Sig Dispense Refill aspirin 81 MG EC tablet Take 81 mg by mouth in the morning. cholecalciferol (Vitamin D-3) 50 MCG (2000 UT) capsule Take by mouth. Cyanocobalamin 100 MCG lozenge Take by mouth. diphenhydrAMINE-acetaminophen (Tylenol PM Extra Strength) 25-500 MG per tablet Take 1 tablet by mouth every 24 hours as needed. ipratropium (Atrovent) 0.06 % nasal spray Administer 2 sprays into each nostril 3 times daily for 7 days. (Patient taking differently: Administer 2 sprays into each nostril as needed for rhinitis.) 15 mL 0 loratadine (Claritin) 10 MG tablet Take 10 mg by mouth in the morning. losartan (Cozaar) 50 MG tablet Take 1 tablet (50 mg) by mouth daily. 90 tablet 1 Naproxen Sodium 220 MG capsule Take 220 mg by mouth 2 times daily as needed (arthralgias). 180 capsule 1 omega-3 (Fish Oil) 1000 MG capsule Take 3,000 mg by mouth. omeprazole (PriLOSEC) [address] capsule Take 1 capsule (40 mg) by mouth every morning (before breakfast). Do not crush or chew. 90 capsule 1 rosuvastatin (Crestor) 5 MG tablet Take 1 tablet (5 mg) by mouth daily. 90 tablet 1 Sodium Sulfate-Mag Sulfate-KCl (Sutab) 5469-361-286 MG tablet Please take as directed by GI office for colonoscopy prep. 24 tablet 0 No current facility-administered medications for this visit. No Known Allergies Health Maintenance Topic Date Due Diabetes Screening 03/15/2024 Mammogram 03/24/2024 Hepatitis C Screening 09/12/2024 (Originally 08/09/1973) Derm Melanoma Skin Check 09/12/2024 Depression Screening 03/17/2025 Medicare Annual Wellness (AWV) 04/17/2025 Lipid Panel 03/15/2028 Colorectal Cancer Screening 09/13/2028 DTaP/Tdap/Td Vaccines (4 - Td or Tdap) 04/09/2032 RSV Immunization aged 60 or older Completed Influenza Vaccine Completed Pneumococcal Vaccine: 65+ Years Completed Zoster Vaccines Completed Bone Density Scan Completed COVID-19 Vaccine Completed RSV Immunization under 20 Months Aged Out HIB Vaccines Aged Out Hepatitis B Vaccines Aged Out IPV Vaccines Aged Out Hepatitis A Vaccines Aged Out Meningococcal Vaccine Aged Out Rotavirus Vaccines Aged Out HPV Vaccines Aged Out Subjective: Review of Systems Respiratory: Negative for shortness of breath. Cardiovascular: Negative for chest pain. Genitourinary: Negative for dysuria, hematuria, pelvic pain, vaginal bleeding, vaginal discharge and vaginal pain. Skin: Negative for color change, pallor, rash and wound. Objective: BP 120/84 Pulse 86 Ht 5' 2 (1.575 m) Wt 198 lb 9.6 oz (90.1 kg) SpO2 96% BMI 36.32 kg/m Last 3 PHQ-2 Scores 03/17/2024 2019 03/17/20242018 Patient Health Questionnaire-2 Score: 0 0 Physical Exam Constitutional: Oriented to person, place, and time. Appears well-developed and well-nourished. No distress. HENT: Head: Normocephalic and atraumatic. Right Ear: External ear normal. Left Ear: External ear normal. Nose: Nose normal. Mouth/Throat: Oropharynx is clear and moist. No oropharyngeal exudate. Bilateral TM's pearly abdalla with a good cone of light bilaterally. Eyes: Conjunctivae and EOM are normal. Pupils are equal, round, and reactive to light. Right eye exhibits no discharge. Left eye exhibits no discharge. Neck: Normal range of motion. Neck supple. No thyromegaly present. Cardiovascular: Normal rate, regular rhythm, normal heart sounds and intact distal pulses. Exam reveals no friction rub. No murmur heard. Carotid upstrokes brisk and without bruits bilaterally. Pulmonary/Chest: Effort normal and breath sounds normal. No respiratory distress. No wheezes. No rales. Breast Examination: Bilateral breast symmetrical and smooth without masses. Free from discoloration, thickening of the skin, and prominent pores. Nipples without discharge,asymmetry, ulcerations, rashes, and inversions bilaterally. Breasts free from dimpling and retractions. Tail of [place] palpated bilaterally and free from axillary lymphadenopathy. Abdominal: Soft. Bowel sounds are normal. No distension and no mass. There is no hepatosplenomegaly. There is no tenderness. Protuberant abdomen impairing examination. Pelvic Examination: There is no rash, tenderness, or lesion on the right labia. There is no rash, tenderness or lesion on the left labia. Urethra without swelling or lesion. Rectum negative for external hemorrhoid, lesions, or abnormal tone. Vagina with normal rugae.Uterus normal size, shape, and consistency; non tender to compression. Cervix exhibits no motion tenderness, no discharge, and no friability. Right adnexum displays no mass, no tenderness and no fullness. Left adnexum displays no mass, no tenderness and no fullness. Pap smear obtained. Musculoskeletal: Normal range of motion. No edema, tenderness or deformity. Strength 5/5 with flexion and extension of extremities x4. Lymphadenopathy: No cervical adenopathy. Neurological: Alert and oriented to person, place, and time.Normal reflexes. Coordination normal. Skin: Skin is warm and dry. No rash noted. No erythema. No pallor. Psychiatric: Normal mood and affect. Behavior is normal. Judgment and thought content normal. Assessment and Plan: 1. Well female exam with routine gynecological exam 2. Encounter for Papanicolaou smear for cervical cancer screening - Pap Smear 3. Screening mammogram for breast cancer - Bilateral screening mammogram with tomosynthesis Shayla received counseling on the following healthy behaviors: continue current medications Patient given educational materials on: pap smears Discussed use, benefit, and side effects of prescribed medications. Barriers to medication compliance addressed. All patient questions answered. Pt voiced understanding. Follow Up: Follow up in about 6 months (around 09/16/2024) for medication maintenance. Orders Placed This Encounter Procedures Bilateral screening mammogram with tomosynthesis Standing Status: Future Standing Expiration Date: 05/18/2025 JULISSA Hewitt CNP 03/18/2024 3:00 PM Patient verified by last name and . documented in this encounter [facility] 03-18-2024 History of Present illness Narrative Images from the original note were not included. [facility] - [address] [id number] Visit type: Established Patient Reason for Visit: Medicare Annual Wellness Visit Subsequent, Health Maintenance (Derm- already sees a wholesale representative /Flu- had done (02/26/2024) /7th Covid- had done 02/26/2024/Mammo-agrees), and Blood Work (Completed this morning ) Assessment and Plan 1. Medicare annual wellness visit, subsequent - Encouraged a healthy diet low in cholesterol and saturated fats. - Encouraged regular exercise. 2. Hypercholesterolemia - rosuvastatin (Crestor) 5 MG tablet; Take 1 tablet (5 mg) by mouth daily., Starting 03/18/2024, Normal - Stable with Rosuvastatin. Will continue current treatment plan. 3. Primary hypertension - losartan (Cozaar) 50 MG tablet; Take 1 tablet (50 mg) by mouth daily., Starting 03/18/2024, Normal - Stable with Losartan. Will continue current treatment plan. 4. Class 2 obesity due to excess calories without serious comorbidity with body mass index (BMI) of 36.0 to 36.9 in adult - Encouraged continuation of a healthy diet and regular exercise. 5. Arthritis of left knee - Naproxen Sodium 220 MG capsule; Take 220 mg by mouth 2 times daily as needed (arthralgias)., Starting 03/18/2024, Normal - Stable. Follow up with specialist as directed. 6. Gastroesophageal reflux disease, unspecified whether esophagitis present - omeprazole (PriLOSEC) [address] capsule; Take 1 capsule (40 mg) by mouth every morning (before breakfast). Do not crush or chew., Starting 03/18/2024, Normal - Stable with Omeprazole. Will continue current treatment plan. Follow up in about 6 months (around 09/16/2024) for medication maintenance. Subjective HPI- Shayla presents today for her annual Medicare physical. Had her fasting blood work drawn prior to her appointment today so she does not need this done now. Hyperlipidemia: Continues to take Rosuvastatin daily as prescribed. Denies myalgias. Levels were stable when checked in February 2023. CHOLESTEROL, TOTAL <200 mg/dL 134 139 HDL CHOLESTEROL > OR = 50 mg/dL 52 50 56 R 53 R TRIGLYCERIDES <150 mg/dL 146 120 116 124 LDL-CHOLESTEROL mg/dL (calc) 59 68 CM CHOL/HDLC RATIO <5.0 (calc) 2.6 2.8 NON HDL CHOLESTEROL <130 mg/dL (calc) 82 89 CM Hypertension: Takes her Losartan daily. Does not check her blood pressure at home. Her BP is stable today 120/84. Obesity: Has been doing water aerobics three times per week. Strives for a healthy diet but knows she can work on moderation and making healthier food choices. Arthritis: Feels symptoms are stable. Has been following up with Dr. Albert Sesay in [place]. Will take an Extra Strength Tylenol or Naproxen and this helps if she needs it. GERD: Takes Omeprazole daily and feels symptoms are well controlled. Denies abdominal pain or dark black tarry stools. Health Maintenance: Declines screening for Hepatitis C. Fully vaccinated for pneumonia. Vaccinated for COVID-19 (Moderna) x7 with most recent dose on 02/24/24. Tdap current: 04/09/22. Colonoscopy current: 09/14/23. DEXA: 01/28/21. Is fully vaccinated for shingles. Mammogram: 03/24/23- would like an order placed for this year's imaging- will place at [facility] today. Sees dermatology for a skin cancer screening examination- last saw last week. Flu vaccine current: 02/24/24. I have reviewed and reconciled the medication list with the patient today. Current Outpatient Medications Medication Sig Dispense Refill aspirin 81 MG EC tablet Take 81 mg by mouth in the morning. cholecalciferol (Vitamin D-3) 50 MCG (1999) capsule Take by mouth. Cyanocobalamin 100 MCG lozenge Take by mouth. diphenhydrAMINE-acetaminophen (Tylenol PM Extra Strength) 25-500 MG per tablet Take 1 tablet by mouth every 24 hours as needed. ipratropium (Atrovent) 0.06 % nasal spray Administer 2 sprays into each nostril 3 times daily for 7 days. (Patient taking differently: Administer 2 sprays into each nostril as needed for rhinitis.) 15 mL 0 loratadine (Claritin) 10 MG tablet Take 10 mg by mouth in the morning. omega-3 (Fish Oil) 1000 MG capsule Take 3,000 mg by mouth. Sodium Sulfate-Mag Sulfate-KCl (Sutab) 3723-267-426 MG tablet Please take as directed by GI office for colonoscopy prep. 24 tablet 0 losartan (Cozaar) 50 MG tablet Take 1 tablet (50 mg) by mouth daily. 90 tablet 1 Naproxen Sodium 220 MG capsule Take 220 mg by mouth 2 times daily as needed (arthralgias). 180 capsule 1 omeprazole (PriLOSEC) [address] capsule Take 1 capsule (40 mg) by mouth every morning (before breakfast). Do not crush or chew. 90 capsule 1 rosuvastatin (Crestor) 5 MG tablet Take 1 tablet (5 mg) by mouth daily. 90 tablet 1 No current facility-administered medications for this visit. Medications Discontinued During This Encounter Medication Reason rosuvastatin (Crestor) 5 MG tablet Reorder omeprazole (PriLOSEC) [address] capsule Reorder losartan (Cozaar) 50 MG tablet Reorder Naproxen Sodium 220 MG capsule Reorder List of current healthcare providers: Patient Care Team: Eder Sesay MD as PCP - General The following health maintenance schedule was reviewed with the patient and provided in printed form in the after visit summary: Health Maintenance Topic Date Due Diabetes Screening 03/15/2024 Mammogram 03/24/2024 Hepatitis C Screening 09/12/2024 (Originally 08/09/1973) Derm Melanoma Skin Check 09/12/2024 Depression Screening 03/17/2025 Medicare Annual Wellness (AWV) 04/17/2025 Lipid Panel 03/15/2028 Colorectal Cancer Screening 09/13/2028 DTaP/Tdap/Td Vaccines (4 - Td or Tdap) 04/09/2032 RSV Immunization aged 60 or older Completed Influenza Vaccine Completed Pneumococcal Vaccine: 65+ Years Completed Zoster Vaccines Completed Bone Density Scan Completed COVID-19 Vaccine Completed RSV Immunization under 20 Months Aged Out HIB Vaccines Aged Out Hepatitis B Vaccines Aged Out IPV Vaccines Aged Out Hepatitis A Vaccines Aged Out Meningococcal Vaccine Aged Out Rotavirus Vaccines Aged Out HPV Vaccines Aged Out No orders of the defined types were placed in this encounter. Health Risk Assessment: General In general, how would you say your health is?: Very good In the past 7 days, have you experienced any of the following: New or Increased Pain, New or Increased Fatigue, Loneliness, Social Isolation, Stress or Anger?: No Do you get the social and emotional suppport you need?: Yes Interventions: N/A Health Habits / Nutrition On average, how many days per week do you engage in moderate to strenous exercise (like a brisk walk)?: 3 days On average, how man minutes do you engage in exercise at this level?: 120 min Have you lost any weight without trying in the past 3 months? : No Have you seen the dentist within the past year?: Yes Interventions: N/A Hearing / Vision Do you or your family notice any trouble with your hearing that hasn't been managed with hearing aids?: No Do you have difficulty driving, watching TV, or doing any of your daily activities because of your eyesight?: No Have you had an eye exam within the past year?: Yes No results found. Interventions: N/A Safety Do you have a working smoke detector?: Yes Do you have any tripping hazards - loose or unsecured carpets or rugs?: No Do you have any tripping hazards - clutter in doorways, halls, or stairs?: No Do you have either shower bars, grab bars, non-slip mats or non-slip surfaces in your shower or bathtub? : Yes Do all your stairways have a railing or banister? : Yes Do you fasten your seatbelt when you are in a car?: Yes Interventions: N/A ADL In the past 7 days, did you need help from others to perform any of the following everyday activities: Eating, dressing, grooming,bathing, toileting, or walking / balance? : No In the past 7 days, did you need help from others to take care of any of the following: laundry, housekeeping, banking / finances,shopping, telephone use, food preparation, transportation, or taking medications? : No Interventions: N/A Living Will Do you have a living will?: Yes Interventions: N/A Cognitive: Cognitive Screening: Mini-Cog Clock Drawing Test (CDT): 2 Words Recalled: 3 Total Score: 5 Total Score Interpretation: Normal Mini-Cog Hypertension: Yes Interventions: N/A Fall Risk: Office Visit from 03/18/[address] [facility] with Quinton Bliss APRN - [employer] 03/17/20242018 Last Filed Value Fall Risk One or more falls in the last year: No One or more falls in the last year:. No. Data is pended. Unvalidated Patient-Reported. Taken on 03/17/242018(P) -- Advised to use a cane or walker to get around safely: No Advised to use a cane or walker to get around safely:. No. Data is pended. Unvalidated Patient-Reported. Taken on 03/17/242018(P) -- Feels unsteady when walking: No Feels unsteady when walking:. No. Data is pended. Unvalidated Patient-Reported. Taken on 03/17/242018(P) -- Steadies self on furniture while walking at home: No Steadies self on furniture while walking at home:. No. Data is pended. Unvalidated Patient-Reported. Taken on 03/17/242018(P) -- Worried about falling: No Worried about falling:. No. Data is pended. Unvalidated Patient-Reported. Taken on 03/17/242018(P) -- Interventions: N/A Depression Screening: Over the past 2 weeks, how often have you been bothered by any of the following problems? Little interest or pleasure in doing things: Not at all Feeling down, depressed, or hopeless: Not at all Patient Health Questionnaire-2 Score: 0 Interventions: N/A Tobacco Use: Social History Tobacco Use Smoking Status Never Smokeless Tobacco Never Interventions: N/A Alcohol Use: Interventions: N/A Drug Use: Interventions: N/A Review of Systems Constitutional: Negative for chills and fever. HENT: Negative for hearing loss and trouble swallowing. Eyes: Negative for pain and visual disturbance. Respiratory: Negative for cough, chest tightness, shortness of breath and wheezing. Cardiovascular: Negative for chest pain, palpitations and leg swelling. Gastrointestinal: Negative for abdominal distention, abdominal pain, blood in stool, constipation and diarrhea. Endocrine: Negative for polydipsia, polyphagia and polyuria. Genitourinary: Negative for dysuria, hematuria, menstrual problem, pelvic pain, vaginal bleeding, vaginal discharge and vaginal pain. Musculoskeletal: Positive for arthralgias. Skin: Negative for color change, pallor, rash and wound. Neurological: Negative for dizziness, syncope, weakness and headaches. Hematological: Does not bruise/bleed easily. Psychiatric/Behavioral: Negative for dysphoric mood. The patient is not nervous/anxious. Immunization History Administered Date(s) Administered COVID-19, mRNA, LNP-S, PF, 50 mcg/0.5 mL 02/24/2024 COVID-19, mRNA, LNP-S, PF, lucretia-sucrose, 30 mcg/0.3 mL 04/11/2023 Covid-19, Moderna Bivalent Booster, (Age 6y-11y) 02/16/2022 Influenza, High Dose Seasonal, Preservative Free 02/24/2024 Influenza, High-dose Seasonal, Quadrivalent, Preservative Free 03/23/2021 Influenza, Seasonal, Quadrivalent, Adjuvanted 03/13/2023 Influenza, Unspecified 02/28/2020, 02/16/2022 Influenza, recombinant, quadrivalent, injectable, preservative free 03/09/2019, 02/22/2020 Moderna SARS-CoV-2 Vaccination 08/26/2020, 09/23/2020, 06/03/2021, 12/10/2021 Pneumococcal Conjugate PCV20, Pf (Prevnar 20) 02/16/2022 Pneumococcal Polysaccharide PPSV23 03/09/2019 RSV, recombinant, protein subunit RSVpreF, adjuvant reconstituted, 0.5 mL, PF 04/11/2023 Tdap 03/20/2008, 03/29/2017, 04/09/2022 Zoster, Recombinant 06/13/2020, 11/12/2020 No Known Allergies Outpatient Medications Prior to Visit Medication Sig Dispense Refill aspirin 81 MG EC tablet Take 81 mg by mouth in the morning. cholecalciferol (Vitamin D-3) 50 MCG (2000 UT) capsule Take by mouth. Cyanocobalamin 100 MCG lozenge Take by mouth. diphenhydrAMINE-acetaminophen (Tylenol PM Extra Strength) 25-500 MG per tablet Take 1 tablet by mouth every 24 hours as needed. ipratropium (Atrovent) 0.06 % nasal spray Administer 2 sprays into each nostril 3 times daily for 7 days. (Patient taking differently: Administer 2 sprays into each nostril as needed for rhinitis.) 15 mL 0 loratadine (Claritin) 10 MG tablet Take 10 mg by mouth in the morning. omega-3 (Fish Oil) 1000 MG capsule Take 3,000 mg by mouth. Sodium Sulfate-Mag Sulfate-KCl (Sutab) 8356-372-062 MG tablet Please take as directed by GI office for colonoscopy prep. 24 tablet 0 losartan (Cozaar) 50 MG tablet Take 1 tablet (50 mg) by mouth daily. 90 tablet 1 Naproxen Sodium 220 MG capsule Take 220 mg by mouth 2 times daily as needed (arthralgias). 180 capsule 1 omeprazole (PriLOSEC) [address] capsule Take 1 capsule (40 mg) by mouth every morning (before breakfast). Do not crush or chew. 90 capsule 1 rosuvastatin (Crestor) 5 MG tablet Take 1 tablet (5 mg) by mouth daily. 90 tablet 1 No facility-administered medications prior to visit. Past Medical History: Diagnosis Date Acute non-recurrent frontal sinusitis 09/21/2022 Arthritis Basal cell carcinoma 2016 Diverticulitis 07/07/2023 Hiatal hernia History of blood clot in brain 1957 Hyperlipidemia Hypertension Nausea and vomiting 06/01/2022 Viral URI with cough 06/01/2022 Social History Socioeconomic History Marital status: Tobacco Use Smoking status: Never Smokeless tobacco: Never Vaping Use Vaping status: Never Used Substance and Sexual Activity Alcohol use: Never Drug use: Never Sexual activity: Not Currently Partners: Male control/protection: Female Sterilization Social Determinants of Health Financial Resource Strain: Low Risk (09/13/2023) Overall Financial Resource Strain (CARDIA) Difficulty of Paying Living Expenses: Not hard at all Food Insecurity: No Food Insecurity (09/13/2023) Hunger Vital Sign Worried About Running Out of Food in the Last Year: Never true Ran Out of Food in the Last Year: Never true Transportation Needs: No Transportation Needs (09/13/2023) PRAPARE - Transportation Lack of Transportation (Medical): No Lack of Transportation (Non-Medical): No Physical Activity: Sufficiently Active (09/13/2023) Exercise Vital Sign Days of Exercise per Week: 3 days Minutes of Exercise per Session: 120 min Housing Stability: Low Risk (09/13/2023) Housing Stability Vital Sign Unable to Pay for Housing in the Last Year: No Number of Places Lived in the Last Year: 1 Unstable Housing in the Last Year: No Past Surgical History: Procedure Laterality Date COLONOSCOPY N/A 09/14/2023 Performed by Misbah Waters at [facility] ENDOSCOPY DILATION AND CURETTAGE OF UTERUS 1994 EGD COLONOSCOPY (HISTORICAL) 09/14/2023 ESOPHAGOGASTRODUODENOSCOPY and COLONOSCOPY With Possible Biopsy/ Polypectomy/ Coagulation/ Electrocautery/ Endotracheal Intubation/ Anesthesia DR. Waters SKIN BIOPSY 2015 Past Surgical History: Procedure Laterality Date COLONOSCOPY N/A 09/14/2023 Performed by Misbah Waters at [facility] ENDOSCOPY DILATION AND CURETTAGE OF UTERUS 1994 EGD COLONOSCOPY (HISTORICAL) 09/14/2023 ESOPHAGOGASTRODUODENOSCOPY and COLONOSCOPY With Possible Biopsy/ Polypectomy/ Coagulation/ Electrocautery/ Endotracheal Intubation/ Anesthesia DR. Waters SKIN BIOPSY 2015 Family History Problem Relation Name Age of Onset Cervical cancer Mother Krissy Bonds Arthritis Mother Krissy Bonds Stroke Mother Krissy Bonds Cancer Brother Khoa [place] Diabetes Mother's Sister Catia Galarza Breast cancer Mother's Sister Catia Galarza Heart disease Mother's Sister Catia Galarza Crohn's disease Neg Hx Colon cancer Neg Hx Objective BP 120/84 Pulse 86 Ht 5' 2 (1.575 m) Wt 198 lb 9.6 oz (90.1 kg) SpO2 96% BMI 36.32 kg/m Physical Exam Constitutional: General: Not in acute distress. Appearance: Not ill-appearing or diaphoretic. HENT: Head: Normocephalic and atraumatic. Right Ear: Tympanic membrane, ear canal and external ear normal. Left Ear: Tympanic membrane, ear canal and external ear normal. Nose: Nose normal. No congestion or rhinorrhea. Mouth/Throat: Mouth: Mucous membranes are moist. Pharynx: Oropharynx is clear. No oropharyngeal exudate or posterior oropharyngeal erythema. Eyes: General: No scleral icterus. Extraocular Movements: Extraocular movements intact. Pupils: Pupils are equal, round, and reactive to light. Neck: Thyroid: No thyroid mass or thyromegaly. Vascular: No carotid bruit. Cardiovascular: Rate and Rhythm: Normal rate and regular rhythm. Pulses: Normal pulses. Heart sounds: Normal heart sounds. No murmur heard. No friction rub. Pulmonary: Effort: Pulmonary effort is normal. Breath sounds: Normal breath sounds. No wheezing, rhonchi or rales. Abdominal: General: Bowel sounds are normal. Palpations: Abdomen is soft. There is no hepatomegaly, splenomegaly or mass. Tenderness: There is no abdominal tenderness. Protuberant abdomen impairing examination. Musculoskeletal: General: No deformity. Normal range of motion. Cervical back: Normal range of motion and neck supple. Right lower leg: No edema. Left lower leg: No edema. Lymphadenopathy: Cervical: No cervical adenopathy. Skin: General: Skin is warm and dry. Coloration: Skin is not jaundiced or pale. Findings: No erythema. Neurological: Mental Status: Alert and oriented to person, place, and time. Motor: No weakness. Gait: Gait normal. Psychiatric: Mood and Affect: Mood normal. Behavior: Behavior normal. Thought Content: Thought content normal. Judgment: Judgment normal. Data Reviewed Labs: Imaging/Testing: JULISSA Hewitt CNP 03/18/2024 2:56 PM Patient verified by last name and . documented in this encounter [facility] 03-15-2024 Note Result Communication Resulted Orders Tissue exam Result Value Ref Range Case Report Surgical Pathology Case: [id number] Authorizing Provider: Perla Johnston PA-C Collected: 03/13/2024 1452 Ordering Location: [facility] Dermatology - Received: 03/14/2024 1123 [facility] Pathologist: Franko Leyva MD Specimens: A) - DERM, Skin, Right Taoist hairline B) - DERM, Skin, Left Parietal Scalp Final Diagnosis A. Skin, right yazidism hairline: Superficial basal cell carcinoma B. Skin, left parietal scalp: Superficial basal cell carcinoma Clinical Information Neoplasm of uncertain behavior of skin - D48.5 [ICD-10-CM]; Rule out BCC A-B) 1 cm erythematous shiny macules Gross Description A. Received in formalin labeled right yazidism hairline is a 1.1 x 1 x 0.1 cm shave biopsy. The surface is light-campa, slightly raised. The specimen is trisected and submitted in one cassette. B. Received in formalin labeled left parietal scalp is a 0.8 x 0.6 x 0.1 cm shave biopsy. The surface is white-pink, slightly raised. The specimen is bisected and submitted in one cassette. Disclaimer Disclaimer: The following statement applies to all immunohistochemistry, in situ hybridization, molecular studies, and immunofluorescence testing, if performed on this case. The use of one or more reagents in the above tests is regulated as an analyte specific reagent (ASR). These tests were developed and their performance characteristics determined by the clinical laboratories of [facility]. They have not been cleared by the US Food and Drug Administration (FDA). The FDA has determined that such clearance or approval is not necessary. All immunostains were performed on paraffin embedded tissue. Appropriate positive and negative controls (where applicable) were run in parallel with the patient's specimen; these controls showed expected staining pattern, with acceptable intensity of staining. Immunohistochemical assays have not been validated on decalcified tissues. Results should be interpreted with caution given the raised possibility of false negativity on decalcified specimens. 5:10 PM Results were successfully communicated with the patient and they acknowledged their understanding. [facility] 03-15-2024 Note Left message and referral sent. [facility] 03-13-2024 History of Present illness Narrative Images from the original note were not included. DATE OF SERVICE: 03/13/2024 PATIENT NAME: Shayla Jara : 1955 AGE: 68 y.o. CLINIC NUMBER: [id number] Visit type: Established patient Chief Complaint Patient presents with Skin Lesion ZAKI 01/19/2024 with Perla Johnston PA-C (BT). Subjective HISTORY OF PRESENT ILLNESS: This is a 68 y.o. female who presents for biopsy of skin lesion; last seen 01/19/2024. C/o-skin lesion located on the right yazidism x 2 months. Denies itching, bleeding, pain. Denies changes in size, shape, color. Denies previous treatment. Are you , trying to become or ? No History of pacemaker/ defibrillator? No History of HIV/ Hep C? No Allergies to Lidocaine, Epinephrine, Latex or Adhesive? No Review of Systems There were no vitals filed for this visit. PHYSICAL EXAM GENERAL APPEARANCE:?Alert & oriented x3, pleasant. Well developed, well nourished. PSYCH: appropriate mood and affect DERMATOLOGY: (all measurements are in cm, unless otherwise noted) 1. Sweeney angioma (2) Generalized, Right Abdomen (side) - Lower Bright red vascular papule(s) Reassured and educated, benign finding. 2. Neoplasm of uncertain behavior of skin (2) Right Taoist hairline 1 cm erythematous shiny macules Lesion biopsy Type of biopsy: tangential Informed consent: discussed and consent obtained Timeout: patient name, date of , surgical site, and procedure verified Procedure prep: Patient was prepped and draped in usual sterile fashion Prep type: Isopropyl alcohol Anesthesia: the lesion was anesthetized in a standard fashion Anesthetic: 1% lidocaine w/ epinephrine 1-100,000 buffered w/ 8.4% NaHCO3 Instrument used: DermaBlade Hemostasis achieved with: electrodesiccation Outcome: patient tolerated procedure well Post-procedure details: sterile dressing applied and wound care instructions given Dressing type: pressure dressing and bandage Specimen A - Tissue exam Differential Diagnosis: Rule out BCC Check Margins: No Left Parietal Scalp 1 cm erythematous shiny macules Lesion biopsy Type of biopsy: tangential Informed consent: discussed and consent obtained Timeout: patient name, date of , surgical site, and procedure verified Procedure prep: Patient was prepped and draped in usual sterile fashion Prep type: Isopropyl alcohol Anesthesia: the lesion was anesthetized in a standard fashion Anesthetic: 1% lidocaine w/ epinephrine 1-100,000 buffered w/ 8.4% NaHCO3 Instrument used: DermaBlade Hemostasis achieved with: electrodesiccation Outcome: patient tolerated procedure well Post-procedure details: sterile dressing applied and wound care instructions given Dressing type: pressure dressing and bandage Specimen B - Tissue exam Differential Diagnosis: Rule out BCC Check Margins: No Biopsy recommended. Patient expresses understanding and is in agreement with the plan. Biopsy (x 1) obtained today. Patient educated that we will call with the biopsy results within 2 weeks. Care instructions reviewed and written instructions provided to patient. 3. Seborrheic keratosis (3) Left Breast, Right Breast, Right Upper Back Campa-brown waxy papule(s) and plaque(s) Reassured that this is a benign lesion and does not require any treatment. Educated that if the lesion changes color, becomes larger, bleeds, becomes bothersome or painful then it should be reevaluated. Patient expresses understanding and is agreeable to plan. 4. History of nonmelanoma skin cancer Nose No evidence of recurrence on exam today. Educated on signs of skin cancer, skin cancer causes, prevention, and risk of developing skin cancers in the future. Sun protection measures reviewed recommending 30 SPF or greater and should do monthly self skin exams and annual full skin exam. 5. Encounter for skin care SKIN TYPE: I Educated on signs of skin cancer, skin cancer causes, prevention, and risk of developing skin cancers in the future. Sun protection measures reviewed recommending 30 SPF or greater and should do monthly self skin exams and annual full skin exam. On this date, I have spent 30 minutes reviewing previous notes, test results and face to face with the patient discussing the diagnosis and importance of compliance with the treatment plan as well as documenting on the day of the visit. I spent a total of 30 minutes on the day of the visit. [x]Preparing to see the patient [x]Obtaining/reviewing separately obtained history [x]Performing exam/evaluation [x]Counseling patient/family/caregiver [x]Ordering medication/tests/procedures []Referring and communicating with other health professionals [x]Documenting clinical information in the EMR []Independently interpreting results and communicating results to patient/family/caregiver [x]Care coordination Follow up in about 10 months (around 01/11/2025). Perla Johnston PA-C 03/20/24 2:44 PM REFERRING MD: documented in this encounter [facility] 01-19-2024 History of Present illness Narrative Images from the original note were not included. DATE OF SERVICE: 01/19/2024 PATIENT NAME: Shayla Jara : 1955 AGE: 68 y.o. CLINIC NUMBER: [id number] Visit type: Established patient Chief Complaint Patient presents with Skin Check LV 01/12/2023 ([facility]) Subjective HISTORY OF PRESENT ILLNESS: Shayla Jara is a 68 y.o. who presents to the office for a check up. Patient's last FSE was done on 01/12/2023. Patient has a history of BCC in 2014. Patient denies any new, changing, itching or bleeding lesions. Patient has ?h/o of ATN. Patient has ?h/o of AKs. Patient has? personal h/o skin cancer. BCC Nose treated by Dr. Jatinder Cnatu in [facility]- 2014 Patient has no?family h/o melanoma. Are you or ? No History of pacemaker/defibrillator? No History of HIV/Hep C? No Allergies to Lidocaine, Epinephrine, Latex or Adhesive? No Social History:Occupation: Retired. Born/raised in [place]. Outdoor sports: yes. 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 Patient does use additional sun protection measures. Review of Systems Dermatology: as per HPI, otherwise negative There were no vitals filed for this visit. PHYSICAL EXAM: GENERAL APPEARANCE:?alert and oriented x3, well developed and well nourished. PSYCH: appropriate mood and affect DERMATOLOGY: 1. Multiple benign melanocytic nevi of both upper extremities, both lower extremities, and trunk Scattered uniform campa/brown nevoid papules and macules Reassured that this is a benign lesion and does not require any treatment. Educated that if the lesion changes color, becomes larger, bleeds, becomes bothersome or painful then it should be reevaluated. Patient expresses understanding and is agreeable to plan. 2. Hemangioma of skin Bright red vascular papule(s) Reassured and educated, benign finding. 3. Seborrheic keratosis (4) Generalized, Left Breast, Right Breast, Right Upper Back Campa-brown waxy papule(s) and plaque(s) Reassured that this is a benign lesion and does not require any treatment. Educated that if the lesion changes color, becomes larger, bleeds, becomes bothersome or painful then it should be reevaluated. Patient expresses understanding and is agreeable to plan. 4. Solar lentigo Light brown well-circumscribed macule(s) Educated and reassured, benign finding secondary to sun exposure. Patient educated on the proper use of sunscreen, SPF, and how often to reapply. Recommend use of OTC mineral sun block, like Neutrogena or [place]. Patient advised to look for zinc or titanium as the active ingredient(s). 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 Patient advised to perform self-skin checks and call for follow up appointment if any new or concerning lesions detected. 5. Skin lesion Right Temporal Scalp 6mm erythematous macule with one small 2mm scab Pt to monitor right hairline yazidism region (consistent with burn from curling iron or superficial BCC on exam today). If changes noted or unresolved in 2 weeks, pt to return for further evaluation and management. 6. History of nonmelanoma skin cancer Nose No evidence of recurrence on exam today. Educated on signs of skin cancer, skin cancer causes, prevention, and risk of developing skin cancers in the future. Sun protection measures reviewed recommending 30 SPF or greater and should do monthly self skin exams and annual full skin exam. 7. Encounter for skin care SKIN TYPE: I Educated on signs of skin cancer, skin cancer causes, prevention, and risk of developing skin cancers in the future. Sun protection measures reviewed recommending 30 SPF or greater and should do monthly self skin exams and annual full skin exam. Follow up in about 1 year (around 01/18/2025) for FSE. Perla Johnston PA-C 01/19/24 3:14 PM REFERRING MD: No referring provider defined for this encounter. documented in this encounter [facility] 01-19-2024 Instructions Henrietta Arriola RN - 01/19/2024 3:20 PM EDT SUNSCREEN AND SUN PROTECTION Ultraviolet radiation from the sun is the main cause of skin cancer as well as sun damage (brown spots, wrinkles and more). Your best protection from the sun is to stay out of the mid-day sun (from 10am-3pm), seek shade, and cover your skin with clothing and hats. Wear a swim shirt when swimming. Sunscreen should be used to areas that aren't covered, including lips. We prefer sunscreens that are SPF 30 or higher. Sunscreens should be applied liberally and reapplied every 2 hours, more often when swimming or sweating. If you will be sweating or swimming, choose a sunscreen that is labeled Water resistant 80 minutes . This is the highest waterproof rating from the FDA. Use a moisturizer with sunscreen daily to protect your sun-exposed areas such as the face, neck and backs of hands. Some drugstore brands to try are Neutrogena Healthy Defense Daily Moisturizer (PureScreen) SPF 50 or CeraVe Face Lotion Invisible Zinc SPF 50. [place]ren GROSSMAN products are slightly more expensive and must be ordered through [employer] or the [employer] website. We like their UV Daily or UV Clear. For body sunscreen when doing outdoor activity, some to try include Sun Bum products, Aveeno Baby Continuous Protection SPF 50 for sensitive skin, Blue Lizard SPF 30+, All Good sport sunscreen SPF 50, or Banana Boat Simply Protect Sport Sunscreen lotion spf 50. Sticks, gels, and sprays are also great and can be used for areas of the body that are difficult to cover with lotion. If you have brown spots such as melasma or lentigenes, choose a tinted sunscreen. There are ingredients in tinted sunscreens (iron oxide) that do a better job blocking certain types of light that cause brown spots. We like [place] GROSSMAN UV Clear tinted or [place] GROSSMAN UV Daily tinted, which can be ordered on [employer] or from [employer]. You can also try Coola Mineral Face Matte Moisturizer SPF 30 or [place] Gold Botaniacal Suncreen SPF 50 Tinted Face Mineral Lotion. There are two types of sunscreens: Chemical sunscreens, such as those that contain the ingredients avobenzone and oxybenzone, and Physical sunscreens, such as those that contain Zinc oxide and Titanium dioxide. Chemical sunscreens absorb light and absorb into the skin. They must be applied 15 minutes before sun exposure. Physical sunscreens reflect the light and are not absorbed into the skin. They should be applied 5 minutes before sun exposure. Some patients worry about the effects of sunscreens that are absorbed into the skin. If you are worried about this, use the physical (zinc/titanium sunscreens)- look at the label before buying. There is lots of scientific evidence that sunlight causes cancer, but there is no direct evidence that sunscreens are harmful. However, the FDA has asked for further study of the chemical sunscreens to make sure they do not have any health effects on humans. documented in this encounter [facility] [employer] 09-14-2023 Miscellaneous Notes Discharge instructions reviewed with patient and daughter, both verbalize understanding. Patient ambulatory to/from with steady gait, able to dress self. Assisted into wheelchair and out to car free of injury or complaint. Patient declines PO fluids/crackers. Denies pain/nausea. Family bedside. Received patient from OR to PACU with FERRYBOAT OPERATOR. Patient is waking up on room air. NO respiratory distress noted. Monitor on, Rn bedside. Safety maintained. Family and surgeon bedside. [facility] Name: Shayla Jara Procedure Date: 09/14/2023 7:46 AM Gender: Female Date of : 1955 Age: 68 Admit Type: Outpatient Note Status: Finalized Endoscopist: Misbah Waters , , [id number] Procedure: Colonoscopy Indications: High risk colon cancer surveillance: Personal history of colonic polyps Findings: Many small-mouthed diverticula were found in the sigmoid colon and descending colon. Non-bleeding external and internal hemorrhoids were found during retroflexion. The hemorrhoids were small and Grade I (internal hemorrhoids that do not prolapse). The terminal ileum appeared normal. The exam was otherwise normal throughout the examined colon. Impression: - Diverticulosis in the sigmoid colon and in the descending colon. - Non-bleeding external and internal hemorrhoids. - The examined portion of the ileum was normal. - No specimens collected. Recommendation: - Patient has a contact number available for emergencies. The signs and symptoms of potential delayed complications were discussed with the patient. Return to normal activities tomorrow. Written discharge instructions were provided to the patient. - Continue present medications. - Resume previous diet. - High fiber diet. - Repeat colonoscopy decision by her PCP within 5-10 years for surveillance per her prior colnoscopy polyps histology. - Return to referring physician as previously scheduled. Referring MD: Eder Sesay MD CC Letter to: PCP Medicines: Monitored Anesthesia Care Procedure: Pre-Anesthesia Assessment: - Prior to the procedure, a History and Physical was performed, and patient medications and allergies were reviewed. The patient is competent. The risks and benefits of the procedure and the sedation options and risks were discussed with the patient. All questions were answered and informed consent was obtained. Patient identification and proposed procedure were verified by the physician, the nurse and the registered nurse ambulatory in the pre-procedure area in the procedure room in the endoscopy suite. Mental Status Examination: normal. Airway Examination: normal oropharyngeal airway and neck mobility. Respiratory Examination: clear to auscultation. CV Examination: normal. Prophylactic Antibiotics: The patient does not require prophylactic antibiotics. Prior Anticoagulants: The patient has taken no anticoagulant or antiplatelet agents. ASA Grade Assessment: III - A patient with severe systemic disease. After reviewing the risks and benefits, the patient was deemed in satisfactory condition to undergo the procedure. The anesthesia plan was to use monitored anesthesia care (MAC). Immediately prior to administration of medications, the patient was re-assessed for adequacy to receive sedatives. The heart rate, respiratory rate, oxygen saturations, blood pressure, adequacy of pulmonary ventilation, and response to care were monitored throughout the procedure. The physical status of the patient was re-assessed after the procedure. After I obtained informed consent, the scope was passed under direct vision. Throughout the procedure, the patient's blood pressure, pulse, and oxygen saturations were monitored continuously. The Colonoscope was introduced through the anus and advanced to the terminal ileum. The colonoscopy was performed with ease. The patient tolerated the procedure well. The quality of the bowel preparation was good. The terminal ileum, ileocecal valve, appendiceal orifice, and rectum were photographed. Complications: No immediate complications. Procedure Code(s): --- Professional --- G0105, Colorectal cancer screening; colonoscopy on individual at high risk --- Technical --- G0105, Colorectal cancer screening; colonoscopy on individual at high risk Diagnosis Code(s): --- Professional --- Z86.010, Personal history of colonic polyps K64.0, First degree hemorrhoids K57.30, Diverticulosis of large intestine without perforation or abscess without bleeding --- Technical --- Z86.010, Personal history of colonic polyps K64.0, First degree hemorrhoids K57.30, Diverticulosis of large intestine without perforation or abscess without bleeding CPT copyright 2021 [employer]. All rights reserved. The codes documented in this report are preliminary and upon gl accountant review may be revised to meet current compliance requirements. Attending Participation: I personally performed the entire procedure. Misbah Waters, 09/14/2023 9:51:12 AM This report has been signed electronically. Number of Addenda: 0 Note Initiated On: 09/14/2023 7:46 AM [facility] Name: Shayla Jara Procedure Date: 09/14/2023 7:46 AM Gender: Female Date of : 1955 Age: 68 Admit Type: Outpatient Note Status: Finalized Endoscopist: Misbah Waters , , [id number] Procedure: Upper GI endoscopy Indications: Functional Dyspepsia, Follow-up of gastro-esophageal reflux disease Findings: The Z-line was irregular. A few localized 1 to 2 mm erosions with no bleeding and no stigmata of recent bleeding were found in the gastric antrum. Biopsies were taken with a cold forceps for histology. Biopsies were taken with a cold forceps for Helicobacter pylori testing. The exam was otherwise without abnormality. The first portion of the duodenum, second portion of the duodenum and third portion of the duodenum were normal. Impression: - Z-line irregular. - Erosive gastropathy with no bleeding and no stigmata of recent bleeding. Biopsied. - The examination was otherwise normal. - Normal first portion of the duodenum, second portion of the duodenum and third portion of the duodenum. Recommendation: - Patient has a contact number available for emergencies. The signs and symptoms of potential delayed complications were discussed with the patient. Return to normal activities tomorrow. Written discharge instructions were provided to the patient. - Await pathology results. - No aspirin, ibuprofen, naproxen, or other non-steroidal anti-inflammatory drugs. - Continue present medications. - Continue Omeprazole 40 mg daily >30 min before breakfast on an empty stomach. - Resume previous diet. - Return to referring physician as previously scheduled. - We proceeded with colonoscopy. Referring MD: Eder Sesay MD CC Letter to: PCP Medicines: Monitored Anesthesia Care Procedure: Pre-Anesthesia Assessment: - Prior to the procedure, a History and Physical was performed, and patient medications and allergies were reviewed. The patient is competent. The risks and benefits of the procedure and the sedation options and risks were discussed with the patient. All questions were answered and informed consent was obtained. Patient identification and proposed procedure were verified by the physician, the nurse and the registered nurse ambulatory in the pre-procedure area in the procedure room in the endoscopy suite. Mental Status Examination: normal. Airway Examination: normal oropharyngeal airway and neck mobility. Respiratory Examination: clear to auscultation. CV Examination: normal. Prophylactic Antibiotics: The patient does not require prophylactic antibiotics. Prior Anticoagulants: The patient has taken no anticoagulant or antiplatelet agents. ASA Grade Assessment: III - A patient with severe systemic disease. After reviewing the risks and benefits, the patient was deemed in satisfactory condition to undergo the procedure. The anesthesia plan was to use monitored anesthesia care (MAC). Immediately prior to administration of medications, the patient was re-assessed for adequacy to receive sedatives. The heart rate, respiratory rate, oxygen saturations, blood pressure, adequacy of pulmonary ventilation, and response to care were monitored throughout the procedure. The physical status of the patient was re-assessed after the procedure. After obtaining informed consent, the endoscope was passed under direct vision. Throughout the procedure, the patient's blood pressure, pulse, and oxygen saturations were monitored continuously. The Endoscope was introduced through the mouth, and advanced to the third part of duodenum. The upper GI endoscopy was accomplished with ease. The patient tolerated the procedure well. Complications: No immediate complications. Estimated blood loss: None. Procedure Code(s): --- Professional --- 14710, Esophagogastroduodenoscopy, flexible, transoral; with biopsy, single or multiple --- Technical --- 85566, Esophagogastroduodenoscopy, flexible, transoral; with biopsy, single or multiple Diagnosis Code(s): --- Professional --- K22.89, Other specified disease of esophagus K31.89, Other diseases of stomach and duodenum K30, Functional dyspepsia K21.9, Gastro-esophageal reflux disease without esophagitis --- Technical --- K22.89, Other specified disease of esophagus K31.89, Other diseases of stomach and duodenum K30, Functional dyspepsia K21.9, Gastro-esophageal reflux disease without esophagitis CPT copyright 2021 [employer]. All rights reserved. The codes documented in this report are preliminary and upon gl accountant review may be revised to meet current compliance requirements. Attending Participation: I personally performed the entire procedure. Misbah Waters, 09/14/2023 9:48:50 AM This report has been signed electronically. Number of Addenda: 0 Note Initiated On: 09/14/2023 7:46 AM documented in this encounter [facility] 09-14-2023 Note Formatting of this n ote might be different from the original. Discharge instructions reviewed with patient and daughter, both verbalize understanding. Patient ambulatory to/from BR with steady gait, able to dress self. Assisted into wheelchair and out to car free of injury or complaint. [facility] 09-14-2023 Note Formatting of this n ote might be different from the original. Discharge instructions reviewed with patient and daughter, both verbalize understanding. Patient ambulatory to/from BR with steady gait, able to dress self. Assisted into wheelchair and out to car free of injury or complaint. 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 Date: 09/14/23 Room / Location: [facility] / [facility] Gastroenterology Anesthesia Start: 914 Anesthesia Stop: 949 Procedures: ESOPHAGOGASTRODUODENOSCOPY and COLONOSCOPY With Possible Biopsy/ Polypectomy/ Coagulation/ Electrocautery/ Endotracheal Intubation/ Anesthesia COLONOSCOPY Diagnosis: Gastro-esophageal reflux disease without esophagitis Personal history of colonic polyps Diaphragmatic hernia without obstruction or gangrene (Gastro-esophageal reflux disease without esophagitis [K21.9]) (Personal history of colonic polyps [Z86.010]) (Diaphragmatic hernia without obstruction or gangrene [K44.9]) Providers: Misbah Waters Responsible Provider: No Anesthesiologist - Cedrick/MD Joseph Anesthesia Type: MAC ASA Status: 3 Anesthesia Type: MAC Vitals Value Taken Time BP 139/79 09/14/23 1010 Temp 36.4 ?C (97.5 ?F) 09/14/23 1010 Pulse 75 09/14/23 1010 Resp 16 09/14/23 1010 SpO2 97 % 09/14/23 1010 Anesthesia Post Evaluation Patient location during evaluation: PACU Patient participation: complete - patient participated Level of consciousness: awake and alert Pain management: satisfactory to patient Airway patency: patent Dental Injury: no Cardiovascular status: acceptable, blood pressure returned to baseline and hemodynamically stable Respiratory status: acceptable and spontaneous ventilation Hydration status: euvolemic Nausea/Vomiting: controlled No notable events documented. Patient can be discharged once all PACU criteria has been met. 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 Date: 09/14/23 Room / Location: [place] [address] / [facility] Gastroenterology Anesthesia Start: 914 Anesthesia Stop: 949 Procedures: ESOPHAGOGASTRODUODENOSCOPY and COLONOSCOPY With Possible Biopsy/ Polypectomy/ Coagulation/ Electrocautery/ Endotracheal Intubation/ Anesthesia COLONOSCOPY Diagnosis: Gastro-esophageal reflux disease without esophagitis Personal history of colonic polyps Diaphragmatic hernia without obstruction or gangrene (Gastro-esophageal reflux disease without esophagitis [K21.9]) (Personal history of colonic polyps [Z86.010]) (Diaphragmatic hernia without obstruction or gangrene [K44.9]) Providers: Misbah Waters Responsible Provider: No Anesthesiologist - Cedrick/MD Joseph Anesthesia Type: MAC ASA Status: 3 Anesthesia Type: MAC Vitals Value Taken Time BP 139/79 09/14/23 1010 Temp 36.4 ?C (97.5 ?F) 09/14/23 1010 Pulse 75 09/14/23 1010 Resp 16 09/14/23 1010 SpO2 97 % 09/14/23 1010 Anesthesia Post Evaluation Patient location during evaluation: PACU Patient participation: complete - patient participated Level of consciousness: awake and alert Pain score: 0 Pain management: satisfactory to patient Multimodal analgesia pain management approach Airway patency: patent Two or more strategies used to mitigate risk of obstructive sleep apnea Cardiovascular status: acceptable and hemodynamically stable Respiratory status: acceptable Hydration status: acceptable No notable events documented. MIPS #430 PONV Patient did not receive an inhalational anesthetic (XX430) MIPS # 424 Perioperative Temperature Management Anesthesia time was less than 60 minutes (4256F) MIPS #477 Multimodal Pain Management Not emergent case Patient was administered multimodal pain management (two or more drugs and/or interventions excluding systemic opioids) in the periopeartive period occurring at some time between 6 hours prior to anesthesia start time until discharged from PACU (G2148) MIPS #404 Anesthesiology Smoking Abstinence The patient is not a current smoker (e.g. cigarette, cigar, pipe, e-cigarette/vaping/marijuana) If no stop here (XX404) I completed my handoff to the receiving clinician during which we: 1. Identified the patient 2. Identified the responsible provider 3. Reviewed the pertinent medical history 4. Discussed the surgical course 5. Reviewed intra-op anesthesia management and issues during anesthesia 6. Set expectations for post-procedure period 7. Allowed opportunity for questions and acknowledgement of understanding. [facility] 09-14-2023 Note Formatting of this n ote might be different from the original. Patient declines PO fluids/crackers. Denies pain/nausea. Family bedside. [facility] 09-14-2023 Note Formatting of this n ote might be different from the original. Patient declines PO fluids/crackers. Denies pain/nausea. Family bedside. [facility] 09-14-2023 Note Formatting of this n ote might be different from the original. Received patient from OR to PACU with FERRYBOAT OPERATOR. Patient is waking up on room air. NO respiratory distress noted. Monitor on, Rn bedside. Safety maintained. Family and surgeon bedside. T [facility] 09-14-2023 Note Formatting of this n ote might be different from the original. Received patient from OR to PACU with FERRYBOAT OPERATOR. Patient is waking up on room air. NO respiratory distress noted. Monitor on, Rn bedside. Safety maintained. Family and surgeon bedside. 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 Information Date/Time: 09/14/23 0930 Procedures: ESOPHAGOGASTRODUODENOSCOPY and COLONOSCOPY With Possible Biopsy/ Polypectomy/ Coagulation/ Electrocautery/ Endotracheal Intubation/ Anesthesia - EGD/Colonoscopy 60min COLONOSCOPY Location: [place] [address] / [facility] Gastroenterology Providers: Misbah Waters Relevant Problems Cardio (+) Hypercholesterolemia (+) Hypertensive disorder Other (+) Arthritis of left knee Past Medical History: Past Medical History: 09/21/2022: Acute non-recurrent frontal sinusitis 07/07/2023: Diverticulitis No date: Hiatal hernia 1957: History of blood clot in brain No date: Hyperlipidemia No date: Hypertension 06/01/2022: Nausea and vomiting 06/01/2022: Viral URI with cough Past Surgical History: Past Surgical History: 09/14/2023: COLONOSCOPY; N/A Comment: Performed by Misbah Waters at [facility] ENDOSCOPY 1994: DILATION AND CURETTAGE OF UTERUS Social History: TOBACCO: reports that she has never smoked. She has never used smokeless tobacco. ETOH: reports no history of alcohol use. Social History Substance and Sexual Activity Drug Use Never Family History: Family History Problem Relation Name Age of Onset Cervical cancer Mother Cancer Brother Diabetes Mother's Sister Breast cancer Mother's Sister Heart disease Mother's Sister Crohn's disease Neg Hx Colon cancer Neg Hx Screening: Postmenopausal Clinical information reviewed: Tobacco Allergies Meds Problems Med Hx Surg Hx OB Status Fam Hx Soc Hx Physical Exam Airway Mallampati: II TM distance: >3 FB Neck ROM: full Mouth Open: normalendotracheal tube not in place Cardiovascular Dental dentition normal Pulmonary Abdominal Anesthesia Plan patient is NPO appropriate Any family history or previous problems with anesthesia no ASA 3 MAC Any family history or previous problems with anesthesia no The patient is not a current smoker. Anesthetic plan and risks discussed with patient. MINESH Screening Labs: Lab Results Component Value Date WBC 6.7 07/07/2023 HGB 14.5 07/07/2023 HCT 42.5 07/07/2023 MCV 88.5 07/07/2023 PLT 268 07/07/2023 Lab Results Component Value Date NA 140 07/07/2023 K 4.2 07/07/2023 CL 102 07/07/2023 CO2 27 07/07/2023 BUN 8 07/07/2023 CREATININE 0.78 07/07/2023 GLUCOSE 125 (H) 07/07/2023 CALCIUM 9.8 07/07/2023 PROT 7.7 07/07/2023 ALKPHOS 83 07/07/2023 AST 33 07/07/2023 ALT 24 07/07/2023 EGFR 83.4 07/07/2023 GLOB 2.5 03/15/2023 No echocardiogram results found for the past 14 days 02/17/21 (Final) [facility] 09-14-2023 History and physical note GASTROENTEROLOGY PHYSICIAN PRE PROCEDURE NOTE HPI: Shayla Jara is a 68 y.o. female who is here today for planned endoscopic examination. All: No Known Allergies Meds: No current facility-administered medications on file prior to encounter. Current Outpatient Medications on File Prior to Encounter Medication Sig Dispense Refill aspirin 81 MG EC tablet Take 81 mg by mouth in the morning. cholecalciferol (Vitamin D-3) 50 MCG (2000 UT) capsule Take by mouth. Cyanocobalamin 100 MCG lozenge Take by mouth. diphenhydrAMINE-acetaminophen (Tylenol PM Extra Strength) 25-500 MG per tablet Take 1 tablet by mouth every 24 hours as needed. ipratropium (Atrovent) 0.06 % nasal spray Administer 2 sprays into each nostril 3 times daily for 7 days. (Patient taking differently: Administer 2 sprays into each nostril as needed for rhinitis.) 15 mL 0 loratadine (Claritin) 10 MG tablet Take 10 mg by mouth in the morning. omega-3 (Fish Oil) 1000 MG capsule Take 3,000 mg by mouth. Sodium Sulfate-Mag Sulfate-KCl (Sutab) 7321-499-828 MG tablet Please take as directed by GI office for colonoscopy prep. 24 tablet 0 [DISCONTINUED] losartan (Cozaar) 50 MG tablet TAKE 1 TABLET DAILY 90 tablet 1 [DISCONTINUED] Naproxen Sodium 220 MG capsule Take by mouth. [DISCONTINUED] omeprazole (PriLOSEC) [address] capsule Take 1 capsule (40 mg) by mouth every morning (before breakfast). Do not crush or chew. 90 capsule 1 [DISCONTINUED] rosuvastatin (Crestor) 5 MG tablet TAKE 1 TABLET DAILY 90 tablet 1 PMH: Past Medical History: Diagnosis Date Acute non-recurrent frontal sinusitis 09/21/2022 Diverticulitis 07/07/2023 Hiatal hernia History of blood clot in brain 1957 Hyperlipidemia Hypertension Nausea and vomiting 06/01/2022 Viral URI with cough 06/01/2022 No reactions to anesthesia in the past. Airway patent PE: VS: BP (!) 146/80 Pulse 87 Temp 36.7 C (98.1 F) (Temporal) Resp 20 SpO2 93% There is no height or weight on file to calculate BMI. General: Patient in no distress CVS: Regular rate & rhythm Respiratory: Clear to auscultation Abdomen: soft and non tender ASA score : 3 ASSESSMENT & PLAN: Risks & benefits of the endoscopic procedure(s) and MAC /GA sedation were personally explained to patient / family along with alternatives to the procedure in detail including radiological and surgical options. The risks of the endoscopic procedure include but are not limited to risk from anesthesia, respiratory failure, infection, bleeding, perforation, pancreatitis with its sequelae , damage to the adjacent organs, missed lesions and need for further procedure, surgery or interventional radiological intervention, from procedure or complications. We made a shared decision to proceed with planned procedure []EGD []Colonoscopy [x]EGD&Colonoscopy Misbah Waters MD Gastroenterology [facility] Phone: 09-14-2023 Note GASTROENTEROLOGY PHY SICIAN PRE PROCEDURE NOTE HPI: Shayla Jara is a 68 y.o. female who is here today for planned endoscopic examination. All: No Known Allergies Meds: No current facility-administered medications on file prior to encounter. Current Outpatient Medications on File Prior to Encounter Medication Sig Dispense Refill aspirin 81 MG EC tablet Take 81 mg by mouth in the morning. cholecalciferol (Vitamin D-3) 50 MCG (2000 UT) capsule Take by mouth. Cyanocobalamin 100 MCG lozenge Take by mouth. diphenhydrAMINE-acetaminophen (Tylenol PM Extra Strength) 25-500 MG per tablet Take 1 tablet by mouth every 24 hours as needed. ipratropium (Atrovent) 0.06 % nasal spray Administer 2 sprays into each nostril 3 times daily for 7 days. (Patient taking differently: Administer 2 sprays into each nostril as needed for rhinitis.) 15 mL 0 loratadine (Claritin) 10 MG tablet Take 10 mg by mouth in the morning. omega-3 (Fish Oil) 1000 MG capsule Take 3,000 mg by mouth. Sodium Sulfate-Mag Sulfate-KCl (Sutab) 8063-979-948 MG tablet Please take as directed by GI office for colonoscopy prep. 24 tablet 0 [DISCONTINUED] losartan (Cozaar) 50 MG tablet TAKE 1 TABLET DAILY 90 tablet 1 [DISCONTINUED] Naproxen Sodium 220 MG capsule Take by mouth. [DISCONTINUED] omeprazole (PriLOSEC) [address] capsule Take 1 capsule (40 mg) by mouth every morning (before breakfast). Do not crush or chew. 90 capsule 1 [DISCONTINUED] rosuvastatin (Crestor) 5 MG tablet TAKE 1 TABLET DAILY 90 tablet 1 PMH: Past Medical History: Diagnosis Date Acute non-recurrent frontal sinusitis 09/21/2022 Diverticulitis 07/07/2023 Hiatal hernia History of blood clot in brain 1957 Hyperlipidemia Hypertension Nausea and vomiting 06/01/2022 Viral URI with cough 06/01/2022 No reactions to anesthesia in the past. Airway patent PE: VS: BP (!) 146/80 Pulse 87 Temp 36.7 ?C (98.1 ?F) (Temporal) Resp 20 SpO2 93% There is no height or weight on file to calculate BMI. General: Patient in no distress CVS: Regular rate & rhythm Respiratory: Clear to auscultation Abdomen: soft and non tender ASA score : 3 ASSESSMENT & PLAN: Risks & benefits of the endoscopic procedure(s) and MAC /GA sedation were personally explained to patient / family along with alternatives to the procedure in detail including radiological and surgical options. The risks of the endoscopic procedure include but are not limited to risk from anesthesia, respiratory failure, infection, bleeding, perforation, pancreatitis with its sequelae , damage to the adjacent organs, missed lesions and need for further procedure, surgery or interventional radiological intervention, from procedure or complications. We made a shared decision to proceed with planned procedure []EGD []Colonoscopy [x]EGD&Colonoscopy Misbah Waters MD Gastroenterology [facility] 09-14-2023 History and physical note GASTROENTEROLOGY PHYSICIAN PRE PROCEDURE NOTE HPI: Shayla Jara is a 68 y.o. female who is here today for planned endoscopic examination. All: No Known Allergies Meds: No current facility-administered medications on file prior to encounter. Current Outpatient Medications on File Prior to Encounter Medication Sig Dispense Refill aspirin 81 MG EC tablet Take 81 mg by mouth in the morning. cholecalciferol (Vitamin D-3) 50 MCG (1999 UT) capsule Take by mouth. Cyanocobalamin 100 MCG lozenge Take by mouth. diphenhydrAMINE-acetaminophen (Tylenol PM Extra Strength) 25-500 MG per tablet Take 1 tablet by mouth every 24 hours as needed. ipratropium (Atrovent) 0.06 % nasal spray Administer 2 sprays into each nostril 3 times daily for 7 days. (Patient taking differently: Administer 2 sprays into each nostril as needed for rhinitis.) 15 mL 0 loratadine (Claritin) 10 MG tablet Take 10 mg by mouth in the morning. omega-3 (Fish Oil) 1000 MG capsule Take 3,000 mg by mouth. Sodium Sulfate-Mag Sulfate-KCl (Sutab) [id number] MG tablet Please take as directed by GI office for colonoscopy prep. 24 tablet 0 [DISCONTINUED] losartan (Cozaar) 50 MG tablet TAKE 1 TABLET DAILY 90 tablet 1 [DISCONTINUED] Naproxen Sodium 220 MG capsule Take by mouth. [DISCONTINUED] omeprazole (PriLOSEC) [address] capsule Take 1 capsule (40 mg) by mouth every morning (before breakfast). Do not crush or chew. 90 capsule 1 [DISCONTINUED] rosuvastatin (Crestor) 5 MG tablet TAKE 1 TABLET DAILY 90 tablet 1 PMH: Past Medical History: Diagnosis Date Acute non-recurrent frontal sinusitis 09/21/2022 Diverticulitis 07/07/2023 Hiatal hernia History of blood clot in brain 1957 Hyperlipidemia Hypertension Nausea and vomiting 06/01/2022 Viral URI with cough 06/01/2022 No reactions to anesthesia in the past. Airway patent PE: VS: BP (!) 146/80 Pulse 87 Temp 36.7 C (98.1 F) (Temporal) Resp 20 SpO2 93% There is no height or weight on file to calculate BMI. General: Patient in no distress CVS: Regular rate & rhythm Respiratory: Clear to auscultation Abdomen: soft and non tender ASA score : 3 ASSESSMENT & PLAN: Risks & benefits of the endoscopic procedure(s) and MAC /GA sedation were personally explained to patient / family along with alternatives to the procedure in detail including radiological and surgical options. The risks of the endoscopic procedure include but are not limited to risk from anesthesia, respiratory failure, infection, bleeding, perforation, pancreatitis with its sequelae , damage to the adjacent organs, missed lesions and need for further procedure, surgery or interventional radiological intervention, from procedure or complications. We made a shared decision to proceed with planned procedure []EGD []Colonoscopy [x]EGD&Colonoscopy Misbah Waters MD Gastroenterology documented in this encounter [facility] 09-14-2023 Note Formatting of this n ote might be different from the original. [facility] Name: Shayla Jara Procedure Date: 09/14/2023 7:46 AM Gender: Female Date of : 1955 Age: 68 Admit Type: Outpatient Note Status: Finalized Endoscopist: Misbah Waters , , [id number] Procedure: Colonoscopy Indications: High risk colon cancer surveillance: Personal history of colonic polyps Findings: Many small-mouthed diverticula were found in the sigmoid colon and descending colon. Non-bleeding external and internal hemorrhoids were found during retroflexion. The hemorrhoids were small and Grade I (internal hemorrhoids that do not prolapse). The terminal ileum appeared normal. The exam was otherwise normal throughout the examined colon. Impression: - Diverticulosis in the sigmoid colon and in the descending colon. - Non-bleeding external and internal hemorrhoids. - The examined portion of the ileum was normal. - No specimens collected. Recommendation: - Patient has a contact number available for emergencies. The signs and symptoms of potential delayed complications were discussed with the patient. Return to normal activities tomorrow. Written discharge instructions were provided to the patient. - Continue present medications. - Resume previous diet. - High fiber diet. - Repeat colonoscopy decision by her PCP within 5-10 years for surveillance per her prior colnoscopy polyps histology. - Return to referring physician as previously scheduled. Referring MD: Eder Sesay MD Letter to: PCP Medicines: Monitored Anesthesia Care Procedure: Pre-Anesthesia Assessment: - Prior to the procedure, a History and Physical was performed, and patient medications and allergies were reviewed. The patient is competent. The risks and benefits of the procedure and the sedation options and risks were discussed with the patient. All questions were answered and informed consent was obtained. Patient identification and proposed procedure were verified by the physician, the nurse and the registered nurse ambulatory in the pre-procedure area in the procedure room in the endoscopy suite. Mental Status Examination: normal. Airway Examination: normal oropharyngeal airway and neck mobility. Respiratory Examination: clear to auscultation. CV Examination: normal. Prophylactic Antibiotics: The patient does not require prophylactic antibiotics. Prior Anticoagulants: The patient has taken no anticoagulant or antiplatelet agents. ASA Grade Assessment: III - A patient with severe systemic disease. After reviewing the risks and benefits, the patient was deemed in satisfactory condition to undergo the procedure. The anesthesia plan was to use monitored anesthesia care (MAC). Immediately prior to administration of medications, the patient was re-assessed for adequacy to receive sedatives. The heart rate, respiratory rate, oxygen saturations, blood pressure, adequacy of pulmonary ventilation, and response to care were monitored throughout the procedure. The physical status of the patient was re-assessed after the procedure. After I obtained informed consent, the scope was passed under direct vision. Throughout the procedure, the patient's blood pressure, pulse, and oxygen saturations were monitored continuously. The Colonoscope was introduced through the anus and advanced to the terminal ileum. The colonoscopy was performed with ease. The patient tolerated the procedure well. The quality of the bowel preparation was good. The terminal ileum, ileocecal valve, appendiceal orifice, and rectum were photographed. Complications: No immediate complications. Procedure Code(s): --- Professional --- G0105, Colorectal cancer screening; colonoscopy on individual at high risk --- Technical --- G0105, Colorectal cancer screening; colonoscopy on individual at high risk Diagnosis Code(s): --- Professional --- Z86.010, Personal history of colonic polyps K64.0, First degree hemorrhoids K57.30, Diverticulosis of large intestine without perforation or abscess without bleeding --- Technical --- Z86.010, Personal history of colonic polyps K64.0, First degree hemorrhoids K57.30, Diverticulosis of large intestine without perforation or abscess without bleeding CPT copyright 2021 [employer]. All rights reserved. The codes documented in this report are preliminary and upon gl accountant review may be revised to meet current compliance requirements. Attending Participation: I personally performed the entire procedure. Misbah Waters, 09/14/2023 9:51:12 AM This report has been signed electronically. Number of Addenda: 0 Note Initiated On: 09/14/2023 7:46 AM . [facility] [employer] 09-14-2023 Note Formatting of this n ote might be different from the original. [facility] Name: Shayla Jara Procedure Date: 09/14/2023 7:46 AM Gender: Female Date of : 1955 Age: 68 Admit Type: Outpatient Note Status: Finalized Endoscopist: Misbah Waters , , [id number] Procedure: Colonoscopy Indications: High risk colon cancer surveillance: Personal history of colonic polyps Findings: Many small-mouthed diverticula were found in the sigmoid colon and descending colon. Non-bleeding external and internal hemorrhoids were found during retroflexion. The hemorrhoids were small and Grade I (internal hemorrhoids that do not prolapse). The terminal ileum appeared normal. The exam was otherwise normal throughout the examined colon. Impression: - Diverticulosis in the sigmoid colon and in the descending colon. - Non-bleeding external and internal hemorrhoids. - The examined portion of the ileum was normal. - No specimens collected. Recommendation: - Patient has a contact number available for emergencies. The signs and symptoms of potential delayed complications were discussed with the patient. Return to normal activities tomorrow. Written discharge instructions were provided to the patient. - Continue present medications. - Resume previous diet. - High fiber diet. - Repeat colonoscopy decision by her PCP within 5-10 years for surveillance per her prior colnoscopy polyps histology. - Return to referring physician as previously scheduled. Referring MD: Eder Sesay MD CC Letter to: PCP Medicines: Monitored Anesthesia Care Procedure: Pre-Anesthesia Assessment: - Prior to the procedure, a History and Physical was performed, and patient medications and allergies were reviewed. The patient is competent. The risks and benefits of the procedure and the sedation options and risks were discussed with the patient. All questions were answered and informed consent was obtained. Patient identification and proposed procedure were verified by the physician, the nurse and the registered nurse ambulatory in the pre-procedure area in the procedure room in the endoscopy suite. Mental Status Examination: normal. Airway Examination: normal oropharyngeal airway and neck mobility. Respiratory Examination: clear to auscultation. CV Examination: normal. Prophylactic Antibiotics: The patient does not require prophylactic antibiotics. Prior Anticoagulants: The patient has taken no anticoagulant or antiplatelet agents. ASA Grade Assessment: III - A patient with severe systemic disease. After reviewing the risks and benefits, the patient was deemed in satisfactory condition to undergo the procedure. The anesthesia plan was to use monitored anesthesia care (MAC). Immediately prior to administration of medications, the patient was re-assessed for adequacy to receive sedatives. The heart rate, respiratory rate, oxygen saturations, blood pressure, adequacy of pulmonary ventilation, and response to care were monitored throughout the procedure. The physical status of the patient was re-assessed after the procedure. After I obtained informed consent, the scope was passed under direct vision. Throughout the procedure, the patient's blood pressure, pulse, and oxygen saturations were monitored continuously. The Colonoscope was introduced through the anus and advanced to the terminal ileum. The colonoscopy was performed with ease. The patient tolerated the procedure well. The quality of the bowel preparation was good. The terminal ileum, ileocecal valve, appendiceal orifice, and rectum were photographed. Complications: No immediate complications. Procedure Code(s): --- Professional --- G0105, Colorectal cancer screening; colonoscopy on individual at high risk --- Technical --- G0105, Colorectal cancer screening; colonoscopy on individual at high risk Diagnosis Code(s): --- Professional --- Z86.010, Personal history of colonic polyps K64.0, First degree hemorrhoids K57.30, Diverticulosis of large intestine without perforation or abscess without bleeding --- Technical --- Z86.010, Personal history of colonic polyps K64.0, First degree hemorrhoids K57.30, Diverticulosis of large intestine without perforation or abscess without bleeding CPT copyright 2021 [employer]. All rights reserved. The codes documented in this report are preliminary and upon gl accountant review may be revised to meet current compliance requirements. Attending Participation: I personally performed the entire procedure. Misbah Waters, 09/14/2023 9:51:12 AM This report has been signed electronically. Number of Addenda: 0 Note Initiated On: 09/14/2023 7:46 AM . [facility] [employer] 09-14-2023 Note [facility] Patient Name: Shayla Jara Procedure Date: 09/14/2023 7:46 AM Gender: Female Date of : 1955 Age: 68 Admit Type: Outpatient Note Status: Finalized Endoscopist: Misbah Waters , , [id number] Procedure: Colonoscopy Indications: High risk colon cancer surveillance: Personal history of colonic polyps Findings: Many small-mouthed diverticula were found in the sigmoid colon and descending colon. Non-bleeding external and internal hemorrhoids were found during retroflexion. The hemorrhoids were small and Grade I (internal hemorrhoids that do not prolapse). The terminal ileum appeared normal. The exam was otherwise normal throughout the examined colon. Impression: - Diverticulosis in the sigmoid colon and in the descending colon. - Non-bleeding external and internal hemorrhoids. - The examined portion of the ileum was normal. - No specimens collected. Recommendation: - Patient has a contact number available for emergencies. The signs and symptoms of potential delayed complications were discussed with the patient. Return to normal activities tomorrow. Written discharge instructions were provided to the patient. - Continue present medications. - Resume previous diet. - High fiber diet. - Repeat colonoscopy decision by her PCP within 5-10 years for surveillance per her prior colnoscopy polyps histology. - Return to referring physician as previously scheduled. Referring MD: Eder Sesay MD CC Letter to: PCP Medicines: Monitored Anesthesia Care Procedure: Pre-Anesthesia Assessment: - Prior to the procedure, a History and Physical was performed, and patient medications and allergies were reviewed. The patient is competent. The risks and benefits of the procedure and the sedation options and risks were discussed with the patient. All questions were answered and informed consent was obtained. Patient identification and proposed procedure were verified by the physician, the nurse and the registered nurse ambulatory in the pre-procedure area in the procedure room in the endoscopy suite. Mental Status Examination: normal. Airway Examination: normal oropharyngeal airway and neck mobility. Respiratory Examination: clear to auscultation. CV Examination: normal. Prophylactic Antibiotics: The patient does not require prophylactic antibiotics. Prior Anticoagulants: The patient has taken no anticoagulant or antiplatelet agents. ASA Grade Assessment: III - A patient with severe systemic disease. After reviewing the risks and benefits, the patient was deemed in satisfactory condition to undergo the procedure. The anesthesia plan was to use monitored anesthesia care (MAC). Immediately prior to administration of medications, the patient was re-assessed for adequacy to receive sedatives. The heart rate, respiratory rate, oxygen saturations, blood pressure, adequacy of pulmonary ventilation, and response to care were monitored throughout the procedure. The physical status of the patient was re-assessed after the procedure. After I obtained informed consent, the scope was passed under direct vision. Throughout the procedure, the patient's blood pressure, pulse, and oxygen saturations were monitored continuously. The Colonoscope was introduced through the anus and advanced to the terminal ileum. The colonoscopy was performed with ease. The patient tolerated the procedure well. The quality of the bowel preparation was good. The terminal ileum, ileocecal valve, appendiceal orifice, and rectum were photographed. Complications: No immediate complications. Procedure Code(s): --- Professional --- G0105, Colorectal cancer screening; colonoscopy on individual at high risk --- Technical --- G0105, Colorectal cancer screening; colonoscopy on individual at high risk Diagnosis Code(s): --- Professional --- Z86.010, Personal history of colonic polyps K64.0, First degree hemorrhoids K57.30, Diverticulosis of large intestine without perforation or abscess without bleeding --- Technical --- Z86.010, Personal history of colonic polyps K64.0, First degree hemorrhoids K57.30, Diverticulosis of large intestine without perforation or abscess without bleeding CPT copyright 2021 [employer]. All rights reserved. The codes documented in this report are preliminary and upon gl accountant review may be revised to meet current compliance requirements. Attending Participation: I personally performed the entire procedure. Misbah Waters, 09/14/2023 9:51:12 AM This report has been signed electronically. Number of Addenda: 0 Note Initiated On: 09/14/2023 7:46 AM [facility] 09-14-2023 Note Formatting of this n ote might be different from the original. [facility] Name: Shayla Jara Procedure Date: 09/14/2023 7:46 AM Gender: Female Date of : 1955 Age: 68 Admit Type: Outpatient Note Status: Finalized Endoscopist: Misbah Waters , , [id number] Procedure: Upper GI endoscopy Indications: Functional Dyspepsia, Follow-up of gastro-esophageal reflux disease Findings: The Z-line was irregular. A few localized 1 to 2 mm erosions with no bleeding and no stigmata of recent bleeding were found in the gastric antrum. Biopsies were taken with a cold forceps for histology. Biopsies were taken with a cold forceps for Helicobacter pylori testing. The exam was otherwise without abnormality. The first portion of the duodenum, second portion of the duodenum and third portion of the duodenum were normal. Impression: - Z-line irregular. - Erosive gastropathy with no bleeding and no stigmata of recent bleeding. Biopsied. - The examination was otherwise normal. - Normal first portion of the duodenum, second portion of the duodenum and third portion of the duodenum. Recommendation: - Patient has a contact number available for emergencies. The signs and symptoms of potential delayed complications were discussed with the patient. Return to normal activities tomorrow. Written discharge instructions were provided to the patient. - Await pathology results. - No aspirin, ibuprofen, naproxen, or other non-steroidal anti-inflammatory drugs. - Continue present medications. - Continue Omeprazole 40 mg daily >30 min before breakfast on an empty stomach. - Resume previous diet. - Return to referring physician as previously scheduled. - We proceeded with colonoscopy. Referring MD: Eder Sesay MD CC Letter to: PCP Medicines: Monitored Anesthesia Care Procedure: Pre-Anesthesia Assessment: - Prior to the procedure, a History and Physical was performed, and patient medications and allergies were reviewed. The patient is competent. The risks and benefits of the procedure and the sedation options and risks were discussed with the patient. All questions were answered and informed consent was obtained. Patient identification and proposed procedure were verified by the physician, the nurse and the registered nurse ambulatory in the pre-procedure area in the procedure room in the endoscopy suite. Mental Status Examination: normal. Airway Examination: normal oropharyngeal airway and neck mobility. Respiratory Examination: clear to auscultation. CV Examination: normal. Prophylactic Antibiotics: The patient does not require prophylactic antibiotics. Prior Anticoagulants: The patient has taken no anticoagulant or antiplatelet agents. ASA Grade Assessment: III - A patient with severe systemic disease. After reviewing the risks and benefits, the patient was deemed in satisfactory condition to undergo the procedure. The anesthesia plan was to use monitored anesthesia care (MAC). Immediately prior to administration of medications, the patient was re-assessed for adequacy to receive sedatives. The heart rate, respiratory rate, oxygen saturations, blood pressure, adequacy of pulmonary ventilation, and response to care were monitored throughout the procedure. The physical status of the patient was re-assessed after the procedure. After obtaining informed consent, the endoscope was passed under direct vision. Throughout the procedure, the patient's blood pressure, pulse, and oxygen saturations were monitored continuously. The Endoscope was introduced through the mouth, and advanced to the third part of duodenum. The upper GI endoscopy was accomplished with ease. The patient tolerated the procedure well. Complications: No immediate complications. Estimated blood loss: None. Procedure Code(s): --- Professional --- 00521, Esophagogastroduodenoscopy, flexible, transoral; with biopsy, single or multiple --- Technical --- 05208, Esophagogastroduodenoscopy, flexible, transoral; with biopsy, single or multiple Diagnosis Code(s): --- Professional --- K22.89, Other specified disease of esophagus K31.89, Other diseases of stomach and duodenum K30, Functional dyspepsia K21.9, Gastro-esophageal reflux disease without esophagitis --- Technical --- K22.89, Other specified disease of esophagus K31.89, Other diseases of stomach and duodenum K30, Functional dyspepsia K21.9, Gastro-esophageal reflux disease without esophagitis CPT copyright 2021 [employer]. All rights reserved. The codes documented in this report are preliminary and upon gl accountant review may be revised to meet current compliance requirements. Attending Participation: I personally performed the entire procedure. Misbah Jt, 09/14/2023 9:48:50 AM This report has been signed electronically. Number of Addenda: 0 Note Initiated On: 09/14/2023 7:46 AM . [facility] [employer] 09-14-2023 Note Formatting of this n ote might be different from the original. [facility] Name: Shayla Jara Procedure Date: 09/14/2023 7:46 AM Gender: Female Date of : 1955 Age: 68 Admit Type: Outpatient Note Status: Finalized Endoscopist: Misbah Waters , , [id number] Procedure: Upper GI endoscopy Indications: Functional Dyspepsia, Follow-up of gastro-esophageal reflux disease Findings: The Z-line was irregular. A few localized 1 to 2 mm erosions with no bleeding and no stigmata of recent bleeding were found in the gastric antrum. Biopsies were taken with a cold forceps for histology. Biopsies were taken with a cold forceps for Helicobacter pylori testing. The exam was otherwise without abnormality. The first portion of the duodenum, second portion of the duodenum and third portion of the duodenum were normal. Impression: - Z-line irregular. - Erosive gastropathy with no bleeding and no stigmata of recent bleeding. Biopsied. - The examination was otherwise normal. - Normal first portion of the duodenum, second portion of the duodenum and third portion of the duodenum. Recommendation: - Patient has a contact number available for emergencies. The signs and symptoms of potential delayed complications were discussed with the patient. Return to normal activities tomorrow. Written discharge instructions were provided to the patient. - Await pathology results. - No aspirin, ibuprofen, naproxen, or other non-steroidal anti-inflammatory drugs. - Continue present medications. - Continue Omeprazole 40 mg daily >30 min before breakfast on an empty stomach. - Resume previous diet. - Return to referring physician as previously scheduled. - We proceeded with colonoscopy. Referring MD: Eder Sesay MD CC Letter to: PCP Medicines: Monitored Anesthesia Care Procedure: Pre-Anesthesia Assessment: - Prior to the procedure, a History and Physical was performed, and patient medications and allergies were reviewed. The patient is competent. The risks and benefits of the procedure and the sedation options and risks were discussed with the patient. All questions were answered and informed consent was obtained. Patient identification and proposed procedure were verified by the physician, the nurse and the registered nurse ambulatory in the pre-procedure area in the procedure room in the endoscopy suite. Mental Status Examination: normal. Airway Examination: normal oropharyngeal airway and neck mobility. Respiratory Examination: clear to auscultation. CV Examination: normal. Prophylactic Antibiotics: The patient does not require prophylactic antibiotics. Prior Anticoagulants: The patient has taken no anticoagulant or antiplatelet agents. ASA Grade Assessment: III - A patient with severe systemic disease. After reviewing the risks and benefits, the patient was deemed in satisfactory condition to undergo the procedure. The anesthesia plan was to use monitored anesthesia care (MAC). Immediately prior to administration of medications, the patient was re-assessed for adequacy to receive sedatives. The heart rate, respiratory rate, oxygen saturations, blood pressure, adequacy of pulmonary ventilation, and response to care were monitored throughout the procedure. The physical status of the patient was re-assessed after the procedure. After obtaining informed consent, the endoscope was passed under direct vision. Throughout the procedure, the patient's blood pressure, pulse, and oxygen saturations were monitored continuously. The Endoscope was introduced through the mouth, and advanced to the third part of duodenum. The upper GI endoscopy was accomplished with ease. The patient tolerated the procedure well. Complications: No immediate complications. Estimated blood loss: None. Procedure Code(s): --- Professional --- 50648, Esophagogastroduodenoscopy, flexible, transoral; with biopsy, single or multiple --- Technical --- 48775, Esophagogastroduodenoscopy, flexible, transoral; with biopsy, single or multiple Diagnosis Code(s): --- Professional --- K22.89, Other specified disease of esophagus K31.89, Other diseases of stomach and duodenum K30, Functional dyspepsia K21.9, Gastro-esophageal reflux disease without esophagitis --- Technical --- K22.89, Other specified disease of esophagus K31.89, Other diseases of stomach and duodenum K30, Functional dyspepsia K21.9, Gastro-esophageal reflux disease without esophagitis CPT copyright 2021 [employer]. All rights reserved. The codes documented in this report are preliminary and upon gl accountant review may be revised to meet current compliance requirements. Attending Participation: I personally performed the entire procedure. Misbah Waters, 09/14/2023 9:48:50 AM This report has been signed electronically. Number of Addenda: 0 Note Initiated On: 09/14/2023 7:46 AM [facility] 09-14-2023 Note [facility] Patient Name: Shayla Jara Procedure Date: 09/14/2023 7:46 AM Gender: Female Date of : 1955 Age: 68 Admit Type: Outpatient Note Status: Finalized Endoscopist: Misbah Waters , , [id number] Procedure: Upper GI endoscopy Indications: Functional Dyspepsia, Follow-up of gastro-esophageal reflux disease Findings: The Z-line was irregular. A few localized 1 to 2 mm erosions with no bleeding and no stigmata of recent bleeding were found in the gastric antrum. Biopsies were taken with a cold forceps for histology. Biopsies were taken with a cold forceps for Helicobacter pylori testing. The exam was otherwise without abnormality. The first portion of the duodenum, second portion of the duodenum and third portion of the duodenum were normal. Impression: - Z-line irregular. - Erosive gastropathy with no bleeding and no stigmata of recent bleeding. Biopsied. - The examination was otherwise normal. - Normal first portion of the duodenum, second portion of the duodenum and third portion of the duodenum. Recommendation: - Patient has a contact number available for emergencies. The signs and symptoms of potential delayed complications were discussed with the patient. Return to normal activities tomorrow. Written discharge instructions were provided to the patient. - Await pathology results. - No aspirin, ibuprofen, naproxen, or other non-steroidal anti-inflammatory drugs. - Continue present medications. - Continue Omeprazole 40 mg daily >30 min before breakfast on an empty stomach. - Resume previous diet. - Return to referring physician as previously scheduled. - We proceeded with colonoscopy. Referring MD: Eder Sesay MD CC Letter to: PCP Medicines: Monitored Anesthesia Care Procedure: Pre-Anesthesia Assessment: - Prior to the procedure, a History and Physical was performed, and patient medications and allergies were reviewed. The patient is competent. The risks and benefits of the procedure and the sedation options and risks were discussed with the patient. All questions were answered and informed consent was obtained. Patient identification and proposed procedure were verified by the physician, the nurse and the registered nurse ambulatory in the pre-procedure area in the procedure room in the endoscopy suite. Mental Status Examination: normal. Airway Examination: normal oropharyngeal airway and neck mobility. Respiratory Examination: clear to auscultation. CV Examination: normal. Prophylactic Antibiotics: The patient does not require prophylactic antibiotics. Prior Anticoagulants: The patient has taken no anticoagulant or antiplatelet agents. ASA Grade Assessment: III - A patient with severe systemic disease. After reviewing the risks and benefits, the patient was deemed in satisfactory condition to undergo the procedure. The anesthesia plan was to use monitored anesthesia care (MAC). Immediately prior to administration of medications, the patient was re-assessed for adequacy to receive sedatives. The heart rate, respiratory rate, oxygen saturations, blood pressure, adequacy of pulmonary ventilation, and response to care were monitored throughout the procedure. The physical status of the patient was re-assessed after the procedure. After obtaining informed consent, the endoscope was passed under direct vision. Throughout the procedure, the patient's blood pressure, pulse, and oxygen saturations were monitored continuously. The Endoscope was introduced through the mouth, and advanced to the third part of duodenum. The upper GI endoscopy was accomplished with ease. The patient tolerated the procedure well. Complications: No immediate complications. Estimated blood loss: None. Procedure Code(s): --- Professional --- 78518, Esophagogastroduodenoscopy, flexible, transoral; with biopsy, single or multiple --- Technical --- 40901, Esophagogastroduodenoscopy, flexible, transoral; with biopsy, single or multiple Diagnosis Code(s): --- Professional --- K22.89, Other specified disease of esophagus K31.89, Other diseases of stomach and duodenum K30, Functional dyspepsia K21.9, Gastro-esophageal reflux disease without esophagitis --- Technical --- K22.89, Other specified disease of esophagus K31.89, Other diseases of stomach and duodenum K30, Functional dyspepsia K21.9, Gastro-esophageal reflux disease without esophagitis CPT copyright 2021 [employer]. All rights reserved. The codes documented in this report are preliminary and upon gl accountant review may be revised to meet current compliance requirements. Attending Participation: I personally performed the entire procedure. Misbah Waters, 09/14/2023 9:48:50 AM This report has been signed electronically. Number of Addenda: 0 Note Initiated On: 09/14/2023 7:46 AM [facility] 09-13-2023 History of Present illness Narrative Patient verified by last name and . Images from the original note were not included. 09/13/2023 Shayla Jara (: 1955) is a 68 y.o. female , Established patient, here for evaluation of the following chief complaint(s): Medication Check (Having colonoscopy ), Hypertension, Hyperlipidemia, and Health Maintenance (Hep C- declines ) ASSESSMENT/PLAN: 1. Hypercholesterolemia - rosuvastatin (Crestor) 5 MG tablet; Take 1 tablet (5 mg) by mouth daily., Starting Mon09/13/2023, Normal - Stable with Rosuvastatin. Will continue current treatment plan. 2. Primary hypertension - losartan (Cozaar) 50 MG tablet; Take 1 tablet (50 mg) by mouth daily., Starting Mon09/13/2023, Normal - Stable with Losartan. Will continue current treatment plan. 3. Class 2 obesity due to excess calories without serious comorbidity with body mass index (BMI) of 37.0 to 37.9 in adult - Encouraged continuation of regular exercise. Encouraged a healthy diet. 4. Arthritis of left knee - Naproxen Sodium 220 MG capsule; Take 220 mg by mouth 2 times daily as needed (arthralgias)., Starting Mon09/13/2023, Normal - Stable with PRN Tylenol and Naproxen. Will continue current treatment plan. 5. Gastroesophageal reflux disease, unspecified whether esophagitis present - omeprazole (PriLOSEC) [address] capsule; Take 1 capsule (40 mg) by mouth every morning (before breakfast). Do not crush or chew., Starting Mon09/13/2023, Normal - Stable with Omeprazole. Will continue current treatment plan. Follow up in about 6 months (around 03/14/2024) for dual visit- [facility] and [facility]. SUBJECTIVE/OBJECTIVE: ALFONSO Mcguire presents today for her 6 month follow up on her chronic health conditions. Hyperlipidemia: Continues to take Rosuvastatin daily as prescribed. Denies myalgias. Levels were stable when checked in February 2023. Component Ref Range & Units 6 mo ago 1 yr ago 2 yr ago 3 yr ago CHOLESTEROL, TOTAL <200 mg/dL 134 139 HDL CHOLESTEROL > OR = 50 mg/dL 52 50 56 R 53 R TRIGLYCERIDES <150 mg/dL 146 120 116 124 LDL-CHOLESTEROL mg/dL (calc) 59 68 CM CHOL/HDLC RATIO <5.0 (calc) 2.6 2.8 NON HDL CHOLESTEROL <130 mg/dL (calc) 82 89 CM Hypertension: Takes her Losartan daily. Does not check her blood pressure at home. Her BP is stable today 136/88. Obesity: Has been doing water aerobics three times per week. Strives for a healthy diet but knows she can work on moderation and making healthier food choices. Arthritis: Feels symptoms are stable. Will take an Extra Strength Tylenol or Naproxen and this helps if she needs it. GERD: Takes Omeprazole daily and feels symptoms are well controlled. Health Maintenance: Declines screening for Hepatitis C. Fully vaccinated for pneumonia. Vaccinated for COVID-19 (Moderna) x6 with most recent dose on 04/11/23. Tdap current: 04/09/22. Colonoscopy current: 10/25/18- due for repeat in 2023- scheduled for tomorrow. DEXA: 01/12/22. Is fully vaccinated for shingles. Mammogram: 03/24/23. Review of Systems Constitutional: Negative for chills and fever. Respiratory: Negative for chest tightness and shortness of breath. Cardiovascular: Negative for chest pain, palpitations and leg swelling. Gastrointestinal: Negative for abdominal distention, abdominal pain and blood in stool. Musculoskeletal: Positive for arthralgias. Skin: Negative for color change, pallor, rash and wound. Neurological: Negative for dizziness, syncope, weakness and headaches. Vitals: 09/13/23 1412 09/13/23 1429 BP: (!) 160/91 136/88 Pulse: 88 SpO2: 95% Weight: 202 lb 12.8 oz (92 kg) Height: 5' 2 (1.575 m) Body mass index is 37.09 kg/m . Physical Exam Constitutional: General: She is not in acute distress. Appearance: She is obese. She is not ill-appearing or diaphoretic. Neck: Vascular: No carotid bruit. Cardiovascular: Rate and Rhythm: Normal rate and regular rhythm. Pulses: Normal pulses. Heart sounds: Normal heart sounds. No murmur heard. No friction rub. Pulmonary: Effort: Pulmonary effort is normal. Breath sounds: Normal breath sounds. No wheezing, rhonchi or rales. Abdominal: General: Abdomen is protuberant. Bowel sounds are normal. Palpations: Abdomen is soft. There is no hepatomegaly, splenomegaly or mass. Tenderness: There is no abdominal tenderness. Musculoskeletal: Cervical back: Neck supple. Right lower leg: No edema. Left lower leg: No edema. Skin: General: Skin is warm and dry. Coloration: Skin is not pale. Findings: No erythema or rash. Neurological: Mental Status: She is alert and oriented to person, place, and time. Psychiatric: Mood and Affect: Mood normal. Behavior: Behavior normal. Thought Content: Thought content normal. Judgment: Judgment normal. An electronic signature was used to authenticate this note. JULISSA Hewitt CNP 09/13/2023 2:38 PM documented in this encounter [facility] 08-30-2023 Telephone encounter Note Name of caller: Shayla Contact phone number: [phone] Relationship to Patient: patient Provider: ZARINA Acevedo Practice: [facility] Gastroenterology Chief Complaint/Reason for Call: Pt states she would like to know if prescription for Sodium Sulfate-Mag Sulfate-KCl (Sutab) [id number] MG tablet can be sent to her pharmacy again. Pt states that it was not picked up in time and the pharmacy needs a new prescription. Please advise. Best time of day caller can be reached: any Patient advised that office/PCP has 24-48 business hours to return their call: No [facility] 08-30-2023 Miscellaneous Notes Name of caller: Shayla Contact phone number: [phone] Relationship to Patient: patient Provider: ZARINA Acevedo Practice: [facility] Gastroenterology Chief Complaint/Reason for Call: Pt states she would like to know if prescription for Sodium Sulfate-Mag Sulfate-KCl (Sutab) [id number] MG tablet can be sent to her pharmacy again. Pt states that it was not picked up in time and the pharmacy needs a new prescription. Please advise. Best time of day caller can be reached: any Patient advised that office/PCP has 24-48 business hours to return their call: No documented in this encounter [employer] 07-28-2023 Telephone encounter Note Reviewed Colonoscopy 10/25/2018- Good prep; moderate diverticulosis in sigmoid colon; internal hemorrhoids. No specimens collected. Recommended repeat in 5 years. EGD 10/25/2018- Erosive gastritis; reflux esophagitis. Gastric biopsies negative for H. Pylori. [employer] Work Phone: 07-28-2023 Miscellaneous Notes Reviewed Colonoscopy 10/25/2018- Good prep; moderate diverticulosis in sigmoid colon; internal hemorrhoids. No specimens collected. Recommended repeat in 5 years. EGD 10/25/2018- Erosive gastritis; reflux esophagitis. Gastric biopsies negative for H. Pylori. Received records for EGD and pathology completed by Dr Ying. Scanned into media for review. Thank you! Faxed LUCIO to [facility] Thank you! Pt states she contacted [facility], they do have her records. Fax number [phone]. Thank you LUCIO we sent out to [employer] came back with no results as they do not have any patient information for her. They suggested [employer] september. Contacted [employer], they do not have anything for her since 2008. Stated Dr Ying was at [facility] around time patient had EGD done. Called patient to attempt to get more information, she said office she had procedure at was in [place], but was not hospital. She will attempt to find their address and call back. documented in this encounter [facility] 07-28-2023 Telephone encounter Note Received records for EGD and pathology completed by Dr Ying. Scanned into media for review. Thank you! [facility] 07-26-2023 Telephone encounter Note Faxed LUCIO to [facility] Thank you! [facility] 07-26-2023 Miscellaneous Notes Faxed LUCIO to [facility] Thank you! Pt states she contacted [facility], they do have her records. Fax number [phone]. Thank you LUCIO we sent out to [employer] came back with no results as they do not have any patient information for her. They suggested [employer] september. Contacted [facility], they do not have anything for her since 2008. Stated [address] Ying was at [facility] around time patient had EGD done. Called patient to attempt to get more information, she said office she had procedure at was in [place], but was not hospital. She will attempt to find their address and call back. documented in this encounter [facility] 07-26-2023 Telephone encounter Note Pt states she contacted [facility], they do have her records. Fax number [phone]. Thank you [facility] 07-26-2023 Telephone encounter Note LUCIO we sent out to [facility] came back with no results as they do not have any patient information for her. They suggested [facility] may. Contacted [facility], they do not have anything for her since 2008. Stated Dr Ying was at [facility] around time patient had EGD done. Called patient to attempt to get more information, she said office she had procedure at was in [place], but was not hospital. She will attempt to find their address and call back. [facility] 07-12-2023 Note Patient called in to get scheduled for her procedures. Patient now scheduled with Dr. Waters in [place] on 08/31/23 at 10am with the arrival time of 9am. EPIC schedule updated Order submitted Open Case request submitted Case # [id number] Sut[employer] Prep. Endo packet mailed to patient Prep sent via [employer] if pt acct active Pt is aware they will need a courtesy driver to take them home from procedure. Must be family member or friend. They cannot use any ride programs. Ex: Uber, Lyft, SCAT, bus, etc...) [facility] 07-12-2023 Telephone encounter Note Patient called in to get scheduled for her procedures. Patient now scheduled with Dr. Waters in [place] on 08/31/23 at 10am with the arrival time of 9am. EPIC schedule updated Order submitted Open Case request submitted Case # [id number] Sutab Prep. Endo packet mailed to patient Prep sent via [employer] if pt acct active Pt is aware they will need a courtesy driver to take them home from procedure. Must be family member or friend. They cannot use any ride programs. Ex: Uber, Lyft, SCAT, bus, etc...) [facility] 07-12-2023 Miscellaneous Notes Patient called in to get scheduled for her procedures. Patient now scheduled with Dr. Waters in [place] on 08/31/23 at 10am with the arrival time of 9am. EPIC schedule updated Order submitted Open Case request submitted Case # [id number] Sutab Prep. Endo packet mailed to patient Prep sent via [employer] if pt acct active Pt is aware they will need a courtesy driver to take them home from procedure. Must be family member or friend. They cannot use any ride programs. Ex: Uber, Lyft, SCAT, bus, etc...) Called patient to get her scheduled for her procedures. Patient unable to schedule at this time. Will call back. Pt needs a flip in [place]. Pt prefers a or Monday in August. [employer] prep. documented in this encounter [facility] 07-11-2023 Evaluation + Plan note Associated Problem(s): Diverticulitis Symptoms improving, continue antibiotic and follow-up with gastroenterology as directed [facility] 07-11-2023 Miscellaneous Notes Associated Problem(s): Diverticulitis Symptoms improving, continue antibiotic and follow-up with gastroenterology as directed documented in this encounter [facility] 07-11-2023 Note Called patient to ge t her scheduled for her procedures. Patient unable to schedule at this time. Will call back. [facility] 07-11-2023 Telephone encounter Note Called patient to get her scheduled for her procedures. Patient unable to schedule at this time. Will call back. [facility] 07-11-2023 Miscellaneous Notes Called patient to get her scheduled for her procedures. Patient unable to schedule at this time. Will call back. Pt needs a flip in [place]. Pt prefers a or Monday in August. Sutab prep. documented in this encounter [facility] 07-11-2023 History of Present illness Narrative Images from the original note were not included. 07/11/2023 Shayla Jara (: 1955) is a 67 y.o. female , Established patient, here for evaluation of the following chief complaint(s): Follow-up ([place] ED follow up 07/07/23 for Diverticulitis.) ASSESSMENT/PLAN: 1. Diverticulitis Assessment & Plan: Symptoms improving, continue antibiotic and follow-up with gastroenterology as directed Follow up for with specialist. SUBJECTIVE/OBJECTIVE: HPI - Shayla Jara (: 1955) is a 67 y.o. female , Established patient, here for the evaluation of the following chief complaint(s): Follow-up ([place] ED follow up 07/07/23 for Diverticulitis.) Patient presents for follow-up emergency room 07/07/2023 for diverticulitis. Was started on Augmentin twice daily x 10 days and Bentyl for cramping. Reports that she still is having some pain in the lower left abdomen. Reports a small amount of blood in the stool yesterday and today. Some mild cramping. States she was having a lot of blood in the stool and Monday of last week. CT of abdomen showed bowel wall inflammation of the colon, no abscess noted. Labs unremarkable. Has reached out to gastroenterology and will be having scope done in August. Prior to Admission medications Medication Sig Start Date End Date Taking? Authorizing Provider amoxicillin-clavulanate (Augmentin) 875-125 MG tablet Take 1 tablet by mouth in the morning and 1 tablet in the evening. Do all this for 10 days. 07/07/23 07/17/23 Yes Vinicio Gómez MD aspirin 81 MG EC tablet Take 81 mg by mouth in the morning. Yes Historical Provider, cholecalciferol (Vitamin D-3) 50 MCG (2000 UT) capsule Take by mouth. Yes Historical Provider, dicyclomine (Bentyl) 20 MG tablet Take 1 tablet (20 mg) by mouth 3 times daily as needed (Abdominal pain) for up to 10 days. 07/07/23 07/17/23 Yes Vinicio Gómez MD diphenhydrAMINE-acetaminophen (Tylenol PM Extra Strength) 25-500 MG per tablet Take 1 tablet by mouth every 24 hours as needed. Yes Historical Provider, losartan (Cozaar) 50 MG tablet TAKE 1 TABLET DAILY 01/13/23 Yes Eder Sesay MD Naproxen Sodium 220 MG capsule Take by mouth. Yes Historical Provider, omega-3 (Fish Oil) 1000 MG capsule Take 3,000 mg by mouth. Yes Historical Provider, omeprazole (PriLOSEC) [address] capsule Take 1 capsule (40 mg) by mouth every morning (before breakfast). Do not crush or chew. 03/13/23 Yes Quinton Bliss APRN - ZARINA rosuvastatin (Crestor) 5 MG tablet TAKE 1 TABLET DAILY 01/13/23 Yes Eder Sesay MD Cyanocobalamin 100 MCG lozenge Take by mouth. Historical Provider, ipratropium (Atrovent) 0.06 % nasal spray Administer 2 sprays into each nostril 3 times daily for 7 days. 06/01/22 06/12/23 JULISSA Samuels CNP loratadine (Claritin) 10 MG tablet Take 10 mg by mouth in the morning. Historical Provider, Sodium Sulfate-Mag Sulfate-KCl (Sutab) [id number] MG tablet Please take as directed by GI office for colonoscopy prep. 06/12/23 JULISSA Amador CNP Review of Systems Constitutional: Positive for appetite change. Negative for activity change, chills, fatigue and fever. Respiratory: Negative. Cardiovascular: Negative. Gastrointestinal: Positive for abdominal pain (Improving), blood in stool (Improving) and diarrhea (loose stools lessoning.). Negative for constipation, nausea and vomiting. Genitourinary: Negative for difficulty urinating. Vitals: 07/11/23 1454 BP: 120/80 Pulse: 73 Temp: 36.3 C (97.3 F) TempSrc: Temporal SpO2: 94% Weight: 206 lb 6.4 oz (93.6 kg) Physical Exam Constitutional: General: She is not in acute distress. Appearance: Normal appearance. She is obese. She is not ill-appearing. HENT: Head: Normocephalic and atraumatic. Mouth/Throat: Mouth: Mucous membranes are moist. Pharynx: Oropharynx is clear. No posterior oropharyngeal erythema. Eyes: Conjunctiva/sclera: Conjunctivae normal. Abdominal: General: Abdomen is flat. Bowel sounds are normal. Palpations: Abdomen is soft. Tenderness: There is abdominal tenderness (left lower quadrant). There is no guarding. Skin: General: Skin is warm and dry. Neurological: Mental Status: She is alert and oriented to person, place, and time. An electronic signature was used to authenticate this note. JULISSA Samuels CNP 07/11/2023 3:42 PM documented in this encounter [facility] 07-11-2023 Instructions JULISSA Samuels CNP - 07/11/2023 3:00 PM EST Call to schedule with gastroenterology. documented in this encounter [facility] 07-07-2023 Emergency department Note EMERGENCY DEPARTMENT ENCOUNTER Pt Name: Shayla Jara Birthdate 1955 Date of evaluation: 07/07/2023 ED Provider: Vinicio Gómez MD CHIEF COMPLAINT Chief Complaint Patient presents with Abdominal Pain HISTORY OF PRESENT ILLNESS (Location/Symptom, Timing/Onset, Context/Setting, Quality, Duration, Modifying Factors, Severity) Note limiting factors. I wore appropriate PPE for the entirety of this encounter. HPI Shayla Jara is a 67 y.o. female who presents to the emergency department with chief complaint of abdominal pain associated with diarrhea. She is also having rectal bleeding. Pain began 2 to 3 days ago, was more severe yesterday and less cramping in severity today. However she has had multiple episodes of diarrhea which has become bloody diarrhea prompting her presentation here. She has felt warm but does not know she had a fever. Denies dysuria. Denies back or flank pain. Pain is in the bilateral lower quadrants. No specific exacerbating alleviating factors Nursing Notes were reviewed. Limitations to history: None Outside historians: None REVIEW OF SYSTEMS Review of Systems: Pertinent positives as above per history of present illness. Other systems reviewed and found to be negative to a total of 10 systems reviewed. PAST MEDICAL HISTORY Past Medical History: Diagnosis Date Acute non-recurrent frontal sinusitis 09/21/2022 Hiatal hernia History of blood clot in brain 1957 Hyperlipidemia Hypertension Nausea and vomiting 06/01/2022 Viral URI with cough 06/01/2022 SURGICAL HISTORY Past Surgical History: Procedure Laterality Date DILATION AND CURETTAGE OF UTERUS 1994 CURRENT MEDICATIONS Previous Medications ASPIRIN 81 MG EC TABLET Take 81 mg by mouth in the morning. CHOLECALCIFEROL (VITAMIN D-3) 50 MCG (1999) CAPSULE Take by mouth. CYANOCOBALAMIN 100 MCG LOZENGE Take by mouth. DIPHENHYDRAMINE-ACETAMINOPHEN (TYLENOL PM EXTRA STRENGTH) 25-500 MG PER TABLET Take 1 tablet by mouth every 24 hours as needed. IPRATROPIUM (ATROVENT) 0.06 % NASAL SPRAY Administer 2 sprays into each nostril 3 times daily for 7 days. LORATADINE (CLARITIN) 10 MG TABLET Take 10 mg by mouth in the morning. LOSARTAN (COZAAR) 50 MG TABLET TAKE 1 TABLET DAILY NAPROXEN SODIUM 220 MG CAPSULE Take by mouth. OMEGA-3 (FISH OIL) 1000 MG CAPSULE Take 3,000 mg by mouth. OMEPRAZOLE (PRILOSEC) [address] CAPSULE Take 1 capsule (40 mg) by mouth every morning (before breakfast). Do not crush or chew. ROSUVASTATIN (CRESTOR) 5 MG TABLET TAKE 1 TABLET DAILY SODIUM SULFATE-MAG SULFATE-KCL (SUTAB) 3629-778-466 MG TABLET Please take as directed by GI office for colonoscopy prep. ALLERGIES Patient has no known allergies. FAMILY HISTORY Family History Problem Relation Name Age of Onset Cervical cancer Mother Cancer Brother Diabetes Mother's Sister Breast cancer Mother's Sister Heart disease Mother's Sister Crohn's disease Neg Hx Colon cancer Neg Hx SOCIAL HISTORY Social History Socioeconomic History Marital status: Tobacco Use Smoking status: Never Smokeless tobacco: Never Vaping Use Vaping Use: Never used Substance and Sexual Activity Alcohol use: Never Drug use: Never SCREENINGS PHYSICAL EXAM ED Triage Vitals Temp Pulse Resp BP -- -- -- -- SpO2 Temp src Heart Rate Source Patient Position -- -- -- -- BP Location FiO2 (%) -- -- Physical Exam: Vital signs reviewed in nurse's notes. Patient is nontoxic in appearance. No respiratory distress. Head: Normocephalic, atraumatic Eyes: Pupils are equal, round and reactive to light. EOMI. Conjunctiva clear. Sclera anicteric ENT: Mucous membranes moist. Throat shows no erythema exudates or edema. Neck: No anterior adenopathy. No tenderness or stiffness. Lungs: Clear to auscultation bilaterally. No wheezing rales or rhonchi. Heart: Regular rate and rhythm. No audible murmur or gallop. Abdomen: Soft, nondistended, mildly tender in the bilateral lower quadrants. No rebound or guarding. No signs of peritonitis. Back: No midline tenderness. No flank area tenderness. Extremities: No gross deformity. No obvious tenderness. No obvious joint swelling. No calf tenderness. Good distal pulses in all 4 extremities. Neurologic: Alert and fully oriented. No focal motor, sensory deficits in all 4 extremities. Ambulatory with normal gait DIAGNOSTIC RESULTS RADIOLOGY (Per Emergency Physician): CT abdomen pelvis shows acute diverticulitis. No obstruction or abscess. Read by radiology. Reviewed by this examiner Interpretation per the Radiologist below, if available at the time of this note: CT abdomen pelvis w contrast Final Result Acute diverticulitis suspected. No convincing obstruction or abscess. Please correlate clinically. Follow-up recommended. Report Dictated on Electronically Signed By: Juanjose López MD Electronically Signed Date/Time: 07/07/2023 12:59 PM EST LABS: Labs Reviewed CBC WITH AUTO DIFFERENTIAL - Abnormal Result Value Auto WBC 6.7 RBC 4.80 Hemoglobin 14.5 Hematocrit 42.5 MCV 88.5 MCH 30.2 MCHC 34.1 RDW 13.1 Platelets 268 MPV 9.7 Neutrophils Relative 65.5 Lymphocytes Relative 23.1 Monocytes Relative 5.8 Eosinophils Relative 4.9 Basophils Relative 0.4 Immature Grans % 0.3 (*) Neutrophils Absolute 4.4 Lymphocytes Absolute 1.5 Monocytes Absolute 0.4 Eosinophils Absolute 0.3 Basophils Absolute 0.0 Immature Grans Absolute 0.0 BASIC METABOLIC PANEL - Abnormal SODIUM 140 POTASSIUM 4.2 CHLORIDE 102 CARBON DIOXIDE 27 UREA NITROGEN 8 CREATININE 0.78 GLUCOSE 125 (*) CALCIUM 9.8 ANION GAP 10 eGFR 83.4 COMPLETE URINALYSIS - Abnormal Color, Urine Colorless Clarity, Urine Clear pH, Urine 7.0 Leukocytes, Urine Negative Nitrite, Urine Negative Protein, Urine Negative Glucose, Urine Normal Bilirubin, Urine Negative Ketones, Urine Negative Urobilinogen, Urine Normal Blood, Urine 0.03 (*) Volume, Urine 12 mL RBC, Urine Negative WBC, Urine Negative Squamous Epithelial, Urine 0-2 Bacteria, Urine Negative SPECIFIC GRAVITY OF URINE (NUMERIC) 1.006 HEPATIC FUNCTION PANEL - Normal BILIRUBIN, TOTAL 0.8 BILIRUBIN, DIRECT 0.0 ALKALINE PHOSPHATASE 83 AST (SGOT) 33 ALT 24 ALBUMIN 4.5 TOTAL PROTEIN 7.7 COMPLETE URINALYSIS WITH REFLEX TO CULTURE Narrative: The following orders were created for panel order Urinalysis Complete with reflex to Culture. Procedure Abnormality Status --------- ------ Complete Urinalysis[[id number]] Abnormal Final result Please view results for these tests on the individual orders. Lab studies are obtained. Urinalysis is negative for signs of infection. White count 6.7. No anemia. No renal insufficiency. No liver enzyme elevation. Laboratory studies reviewed by this examiner. EMERGENCY DEPARTMENT COURSE and DIFFERENTIAL DIAGNOSIS/MDM: Vitals: Vitals: 07/07/23 1115 BP: (!) 155/91 BP Location: Right arm Patient Position: Sitting Pulse: 96 Resp: 18 Temp: 36.8 C (98.3 F) TempSrc: Oral SpO2: 95% Weight: 90.7 kg (200 lb) Height: 1.575 m (5' 2 ) Patient has diverticulitis. She does not have peritonitis or abscess. Do not feel the patient needs to be admitted to the hospital. I do feel she can follow-up as an outpatient. She started on antibiotics. Return if worse or new symptoms or problems. The patient presented with chief complaint of abdominal pain. The differential diagnosis associated with this patient's presentation includes UTI, pyelonephritis, diverticulitis, colitis, viral illness, anemia, GI bleeding. Our workup consisted of ordering/reviewing: Laboratory studies, CT abdomen pelvis. Consideration for escalation of care with: Admission/observation if anemia, if abscess, if peritonitis. The patient will be Discharged. Patient is in agreement with this plan. Medications sodium chloride 0.9 % bolus 1,000 mL (0 mL IntraVENous Stopped 07/07/23 1235) REVAL: PROCEDURES: Unless otherwise noted below, none Procedures Patients symptoms are consistent with sepsis, severe sepsis, or septic shock (If yes use .sepsiscoremeasure ): no FINAL IMPRESSION 1. Diverticulitis 2. Lower abdominal pain DISPOSITION Discharge 07/07/2023 01:19:27 PM PATIENT REFERRED TO: Eder Sesay MD [address] [place] [address], [address] [facility] [id number] Call in 3 days DISCHARGE MEDICATIONS: New Prescriptions AMOXICILLIN-CLAVULANATE (AUGMENTIN) 875-125 MG TABLET Take 1 tablet by mouth in the morning and 1 tablet in the evening. Do all this for 10 days. DICYCLOMINE (BENTYL) 20 MG TABLET Take 1 tablet (20 mg) by mouth 3 times daily as needed (Abdominal pain) for up to 10 days. (Comment: Please note this report has been produced using speech recognition software and may contain errors related to that system including errors in grammar, punctuation, and spelling, as well as words and phrases that may be inappropriate. If there are any questions or concerns please feel free to contact the dictating provider for clarification.) Vinicio Gómez MD (electronically signed) Emergency Medicine Provider Vinicio Gómez MD 07/07/23 1321 Patient is here today with diarrhea, abdominal pain, nausea and bloody stools. Symptoms started on Monday. She has history of diverticulitis and currently has a hiatal hernia. She is scheduled for colonoscopy and endoscopy. She recently started omeprazole for GERD. She has not had an appetite but managed to eat scrambled eggs yesterday and she sipped on 7up. She denies vomiting. Call light within reach. documented in this encounter [facility] 07-07-2023 Emergency department Triage note Patient is here today with diarrhea, abdominal pain, nausea and bloody stools. Symptoms started on Monday. She has history of diverticulitis and currently has a hiatal hernia. She is scheduled for colonoscopy and endoscopy. She recently started omeprazole for GERD. She has not had an appetite but managed to eat scrambled eggs yesterday and she sipped on 7up. She denies vomiting. Call light within reach. [facility] 07-07-2023 Physician Emergency department Note EMERGENCY DEPARTMENT ENCOUNTER Pt Name: Shayla Jara Birthdate 1955 Date of evaluation: 07/07/2023 ED Provider: Vinicio Gómez MD CHIEF COMPLAINT Chief Complaint Patient presents with Abdominal Pain HISTORY OF PRESENT ILLNESS (Location/Symptom, Timing/Onset, Context/Setting, Quality, Duration, Modifying Factors, Severity) Note limiting factors. I wore appropriate PPE for the entirety of this encounter. HPI Shayla Jara is a 67 y.o. female who presents to the emergency department with chief complaint of abdominal pain associated with diarrhea. She is also having rectal bleeding. Pain began 2 to 3 days ago, was more severe yesterday and less cramping in severity today. However she has had multiple episodes of diarrhea which has become bloody diarrhea prompting her presentation here. She has felt warm but does not know she had a fever. Denies dysuria. Denies back or flank pain. Pain is in the bilateral lower quadrants. No specific exacerbating alleviating factors Nursing Notes were reviewed. Limitations to history: None Outside historians: None REVIEW OF SYSTEMS Review of Systems: Pertinent positives as above per history of present illness. Other systems reviewed and found to be negative to a total of 10 systems reviewed. PAST MEDICAL HISTORY Past Medical History: Diagnosis Date Acute non-recurrent frontal sinusitis 09/21/2022 Hiatal hernia History of blood clot in brain 1957 Hyperlipidemia Hypertension Nausea and vomiting 06/01/2022 Viral URI with cough 06/01/2022 SURGICAL HISTORY Past Surgical History: Procedure Laterality Date DILATION AND CURETTAGE OF UTERUS 1994 CURRENT MEDICATIONS Previous Medications ASPIRIN 81 MG EC TABLET Take 81 mg by mouth in the morning. CHOLECALCIFEROL (VITAMIN D-3) 50 MCG (1999 UT) CAPSULE Take by mouth. CYANOCOBALAMIN 100 MCG LOZENGE Take by mouth. DIPHENHYDRAMINE-ACETAMINOPHEN (TYLENOL PM EXTRA STRENGTH) 25-500 MG PER TABLET Take 1 tablet by mouth every 24 hours as needed. IPRATROPIUM (ATROVENT) 0.06 % NASAL SPRAY Administer 2 sprays into each nostril 3 times daily for 7 days. LORATADINE (CLARITIN) 10 MG TABLET Take 10 mg by mouth in the morning. LOSARTAN (COZAAR) 50 MG TABLET TAKE 1 TABLET DAILY NAPROXEN SODIUM 220 MG CAPSULE Take by mouth. OMEGA-3 (FISH OIL) 1000 MG CAPSULE Take 3,000 mg by mouth. OMEPRAZOLE (PRILOSEC) [address] CAPSULE Take 1 capsule (40 mg) by mouth every morning (before breakfast). Do not crush or chew. ROSUVASTATIN (CRESTOR) 5 MG TABLET TAKE 1 TABLET DAILY SODIUM SULFATE-MAG SULFATE-KCL (SUTAB) 0866-464-185 MG TABLET Please take as directed by GI office for colonoscopy prep. ALLERGIES Patient has no known allergies. FAMILY HISTORY Family History Problem Relation Name Age of Onset Cervical cancer Mother Cancer Brother Diabetes Mother's Sister Breast cancer Mother's Sister Heart disease Mother's Sister Crohn's disease Neg Hx Colon cancer Neg Hx SOCIAL HISTORY Social History Socioeconomic History Marital status: Tobacco Use Smoking status: Never Smokeless tobacco: Never Vaping Use Vaping Use: Never used Substance and Sexual Activity Alcohol use: Never Drug use: Never SCREENINGS PHYSICAL EXAM ED Triage Vitals Temp Pulse Resp BP -- -- -- -- SpO2 Temp src Heart Rate Source Patient Position -- -- -- -- BP Location FiO2 (%) -- -- Physical Exam: Vital signs reviewed in nurse's notes. Patient is nontoxic in appearance. No respiratory distress. Head: Normocephalic, atraumatic Eyes: Pupils are equal, round and reactive to light. EOMI. Conjunctiva clear. Sclera anicteric ENT: Mucous membranes moist. Throat shows no erythema exudates or edema. Neck: No anterior adenopathy. No tenderness or stiffness. Lungs: Clear to auscultation bilaterally. No wheezing rales or rhonchi. Heart: Regular rate and rhythm. No audible murmur or gallop. Abdomen: Soft, nondistended, mildly tender in the bilateral lower quadrants. No rebound or guarding. No signs of peritonitis. Back: No midline tenderness. No flank area tenderness. Extremities: No gross deformity. No obvious tenderness. No obvious joint swelling. No calf tenderness. Good distal pulses in all 4 extremities. Neurologic: Alert and fully oriented. No focal motor, sensory deficits in all 4 extremities. Ambulatory with normal gait DIAGNOSTIC RESULTS RADIOLOGY (Per Emergency Physician): CT abdomen pelvis shows acute diverticulitis. No obstruction or abscess. Read by radiology. Reviewed by this examiner Interpretation per the Radiologist below, if available at the time of this note: CT abdomen pelvis w contrast Final Result Acute diverticulitis suspected. No convincing obstruction or abscess. Please correlate clinically. Follow-up recommended. Report Dictated on Electronically Signed By: Juanjose López MD Electronically Signed Date/Time: 07/07/2023 12:59 PM EST LABS: Labs Reviewed CBC WITH AUTO DIFFERENTIAL - Abnormal Result Value Auto WBC 6.7 RBC 4.80 Hemoglobin 14.5 Hematocrit 42.5 MCV 88.5 MCH 30.2 MCHC 34.1 RDW 13.1 Platelets 268 MPV 9.7 Neutrophils Relative 65.5 Lymphocytes Relative 23.1 Monocytes Relative 5.8 Eosinophils Relative 4.9 Basophils Relative 0.4 Immature Grans % 0.3 (*) Neutrophils Absolute 4.4 Lymphocytes Absolute 1.5 Monocytes Absolute 0.4 Eosinophils Absolute 0.3 Basophils Absolute 0.0 Immature Grans Absolute 0.0 BASIC METABOLIC PANEL - Abnormal SODIUM 140 POTASSIUM 4.2 CHLORIDE 102 CARBON DIOXIDE 27 UREA NITROGEN 8 CREATININE 0.78 GLUCOSE 125 (*) CALCIUM 9.8 ANION GAP 10 eGFR 83.4 COMPLETE URINALYSIS - Abnormal Color, Urine Colorless Clarity, Urine Clear pH, Urine 7.0 Leukocytes, Urine Negative Nitrite, Urine Negative Protein, Urine Negative Glucose, Urine Normal Bilirubin, Urine Negative Ketones, Urine Negative Urobilinogen, Urine Normal Blood, Urine 0.03 (*) Volume, Urine 12 mL RBC, Urine Negative WBC, Urine Negative Squamous Epithelial, Urine 0-2 Bacteria, Urine Negative SPECIFIC GRAVITY OF URINE (NUMERIC) 1.006 HEPATIC FUNCTION PANEL - Normal BILIRUBIN, TOTAL 0.8 BILIRUBIN, DIRECT 0.0 ALKALINE PHOSPHATASE 83 AST (SGOT) 33 ALT 24 ALBUMIN 4.5 TOTAL PROTEIN 7.7 COMPLETE URINALYSIS WITH REFLEX TO CULTURE Narrative: The following orders were created for panel order Urinalysis Complete with reflex to Culture. Procedure Abnormality Status --------- ------ Complete Urinalysis[[id number]] Abnormal Final result Please view results for these tests on the individual orders. Lab studies are obtained. Urinalysis is negative for signs of infection. White count 6.7. No anemia. No renal insufficiency. No liver enzyme elevation. Laboratory studies reviewed by this examiner. EMERGENCY DEPARTMENT COURSE and DIFFERENTIAL DIAGNOSIS/MDM: Vitals: Vitals: 07/07/23 1115 BP: (!) 155/91 BP Location: Right arm Patient Position: Sitting Pulse: 96 Resp: 18 Temp: 36.8 C (98.3 F) TempSrc: Oral SpO2: 95% Weight: 90.7 kg (200 lb) Height: 1.575 m (5' 2 ) Patient has diverticulitis. She does not have peritonitis or abscess. Do not feel the patient needs to be admitted to the hospital. I do feel she can follow-up as an outpatient. She started on antibiotics. Return if worse or new symptoms or problems. The patient presented with chief complaint of abdominal pain. The differential diagnosis associated with this patient's presentation includes UTI, pyelonephritis, diverticulitis, colitis, viral illness, anemia, GI bleeding. Our workup consisted of ordering/reviewing: Laboratory studies, CT abdomen pelvis. Consideration for escalation of care with: Admission/observation if anemia, if abscess, if peritonitis. The patient will be Discharged. Patient is in agreement with this plan. Medications sodium chloride 0.9 % bolus 1,000 mL (0 mL IntraVENous Stopped 07/07/23 8423) REVAL: PROCEDURES: Unless otherwise noted below, none Procedures Patients symptoms are consistent with sepsis, severe sepsis, or septic shock (If yes use .sepsiscoremeasure ): no FINAL IMPRESSION 1. Diverticulitis 2. Lower abdominal pain DISPOSITION Discharge 07/07/2023 01:19:27 PM PATIENT REFERRED TO: Eder Sesay MD [address] [place] [address], [address] [facility] [address] Call in 3 days DISCHARGE MEDICATIONS: New Prescriptions AMOXICILLIN-CLAVULANATE (AUGMENTIN) 875-125 MG TABLET Take 1 tablet by mouth in the morning and 1 tablet in the evening. Do all this for 10 days. DICYCLOMINE (BENTYL) 20 MG TABLET Take 1 tablet (20 mg) by mouth 3 times daily as needed (Abdominal pain) for up to 10 days. (Comment: Please note this report has been produced using speech recognition software and may contain errors related to that system including errors in grammar, punctuation, and spelling, as well as words and phrases that may be inappropriate. If there are any questions or concerns please feel free to contact the dictating provider for clarification.) Vinicio Gómez MD (electronically signed) Emergency Medicine Provider Vinicio Gómez MD 07/07/23 [facility] 06-12-2023 Telephone encounter Note Pt needs a flip in [place]. Pt prefers a or Monday in August. Sutab prep. [facility] 06-12-2023 History of Present illness Narrative Images from the original note were not included. [facility] [address] [place] [address] Dept: [phone] Dept Loc: [phone] Visit type: New Reason for Visit: New Patient and GERD Assessment and Plan Problem List Items Addressed This Visit None Visit Diagnoses Gastroesophageal reflux disease, unspecified whether esophagitis present - Primary History of colon polyps Relevant Medications Sodium Sulfate-Mag Sulfate-KCl (Sutab) 7851-735-507 MG tablet Hiatal hernia GERD/Hiatal hernia --symptoms improved with omeprazole 40 mg q day-continue at this time --request copy of most recent EGD from Dr. Ying (per patient ~ 6 years ago); hx HH per patient report --limit NSAIDs --schedule EGD for further evaluation of symptoms --diet EDU printed Hx Colon Polyps --schedule colonoscopy for surveillance of colon polyps --last colonoscopy 09/2018 --patient requests pill prep; Rx for Sutab sent to pharmacy Advised patient to call office with new or worsening symptoms, questions, or concerns. Patient verbalized understanding and agreement of plan. Follow up if symptoms worsen or fail to improve. Subjective Patient is referred by BURTON Polk, re: GERD and screening for colon cancer. Patient reports in January was in [facility], ate monegasque food that she did not feel was spicy, but subsequently developed chest burning that persisted. Had significant indigestion lasting more than one month. She was started on omeprazole 40 mg q day with improvement in symptoms in February. She is continuing to take omeprazole 40 mg q day. Notes she has diagnosis of hiatal hernia-occasional upper abdominal pain which she attributes to hernia. Thinks last EGD ~ 6 years ago. Denies nausea, vomiting, dysphagia, and weight-loss. Uses ibuprofen daily for arthritis. GERD She reports no abdominal pain, no chest pain or no nausea. Last colonoscopy 09/2018-diverticulosis and internal hemorrhoids; polyps on previous colonoscopy; repeat exam recommended in 5 years. Patient notes she took pills for prior bowel prep-has vomiting with liquid solution. Bowels are moving daily. Stool is formed. Denies hematochezia and melena. Uses Fibercon daily. No tobacco use. No EtOH use. Takes ASA 81 mg q day. No supplemental oxygen use. Review of Systems Constitutional: Negative for appetite change and unexpected weight change. HENT: Negative for trouble swallowing and voice change. Respiratory: Negative for shortness of breath. Cardiovascular: Negative for chest pain. Gastrointestinal: Negative for abdominal distention, abdominal pain, anal bleeding, blood in stool, constipation, diarrhea, nausea, rectal pain and vomiting. +heartburn, indigestion Genitourinary: Negative for difficulty urinating. Skin: Negative for color change. Neurological: Negative for weakness. No Known Allergies Outpatient Medications Prior to Visit Medication Sig Dispense Refill amoxicillin-clavulanate (Augmentin) 875-125 MG tablet Take 1 tablet by mouth 2 times daily for 7 days. 14 tablet 0 aspirin 81 MG EC tablet Take 81 mg by mouth in the morning. vtzcdrjbjymgrld-uewqslskfsdrmry-IF 30-2-10 MG/5ML syrup Take 5 mL by mouth 3 times daily as needed for cough or congestion for up to 10 days. 120 mL 0 cholecalciferol (Vitamin D-3) 50 MCG (2000 UT) capsule Take by mouth. Cyanocobalamin 100 MCG lozenge Take by mouth. diphenhydrAMINE-acetaminophen (Tylenol PM Extra Strength) 25-500 MG per tablet Take 1 tablet by mouth every 24 hours as needed. ipratropium (Atrovent) 0.06 % nasal spray Administer 2 sprays into each nostril 3 times daily for 7 days. 15 mL 0 loratadine (Claritin) 10 MG tablet Take 10 mg by mouth in the morning. losartan (Cozaar) 50 MG tablet TAKE 1 TABLET DAILY 90 tablet 1 Naproxen Sodium 220 MG capsule Take by mouth. omega-3 (Fish Oil) 1000 MG capsule Take 3,000 mg by mouth. omeprazole (PriLOSEC) [address] capsule Take 1 capsule (40 mg) by mouth every morning (before breakfast). Do not crush or chew. 90 capsule 1 rosuvastatin (Crestor) 5 MG tablet TAKE 1 TABLET DAILY 90 tablet 1 No facility-administered medications prior to visit. Patient Active Problem List Diagnosis Date Noted Class 2 obesity due to excess calories without serious comorbidity with body mass index (BMI) of 38.0 to 38.9 in adult 02/17/2021 Hyperlipidemia LDL goal <100 08/12/2020 Essential hypertension 08/12/2020 Arthritis of left knee 08/12/2020 Social History Tobacco Use Smoking status: Never Smokeless tobacco: Never Substance Use Topics Alcohol use: Never Family History Problem Relation Name Age of Onset Cervical cancer Mother Cancer Brother Diabetes Mother's Sister Breast cancer Mother's Sister Heart disease Mother's Sister Crohn's disease Neg Hx Colon cancer Neg Hx Objective BP (!) 156/81 Temp 36.2 C (97.2 F) Ht 5' 2 (1.575 m) Wt 212 lb 6.4 oz (96.3 kg) BMI 38.85 kg/m Physical Exam Constitutional: Appearance: Normal appearance. Comments: Pleasant HENT: Head: Normocephalic. Eyes: General: No scleral icterus. Cardiovascular: Rate and Rhythm: Normal rate and regular rhythm. Pulmonary: Effort: Pulmonary effort is normal. Breath sounds: Normal breath sounds. Abdominal: General: Bowel sounds are normal. There is no distension. Palpations: Abdomen is soft. There is no mass. Tenderness: There is no abdominal tenderness (patient denies ttp '). There is no guarding or rebound. Hernia: No hernia is present. Skin: General: Skin is warm and dry. Coloration: Skin is not jaundiced. Neurological: General: No focal deficit present. Mental Status: She is alert and oriented to person, place, and time. Psychiatric: Mood and Affect: Mood normal. Behavior: Behavior normal. Data Reviewed and Summarized Labs: Lab Results Component Value Date WBC 5.6 03/15/2023 HGB 13.8 03/15/2023 HCT 42.3 03/15/2023 MCV 93.4 03/15/2023 PLT 272 03/15/2023 Lab Results Component Value Date GLUCOSE 92 03/15/2023 CALCIUM 9.5 03/15/2023 NA 137 08/16/2021 K 4.2 08/16/2021 CO2 29 03/15/2023 CL 102 08/16/2021 BUN 13 03/15/2023 CREATININE 0.77 03/15/2023 Lab Results Component Value Date ALT 15 03/15/2023 AST 19 03/15/2023 ALKPHOS 56 03/15/2023 BILITOT 0.5 03/15/2023 Imaging/Testin10/25/[address] Ying Indication: History of colon polyps Jian Acevedo APRN-[employer]AL DRILL OPERATOR 1:33 PM 06/12/23 documented in this encounter [facility] 06-12-2023 Instructions JULISSA Amador CNP - 06/12/2023 1:00 PM EST --Please call office with any questions or concerns! [phone] --request prior EGD report and path from Dr. Ying --Schedule EGD (upper endoscopy) and colonoscopy for further evaluation of the symptoms. --A prescription for Sutab was sent to your pharmacy. This is the bowel prep for your colonoscopy. --continue omeprazole 40 mg daily. --Avoid nonsteroidal anti-inflammatory (NSAID) medications such as ibuprofen (Advil), naproxen (Aleve), etc. These can contribute to abdominal pain and ulcers. Take Tylenol (acetaminophen) instead if needed for pain by following the instructions on the bottle. --Please see handout provided regarding additional recommendations for the symptoms including when to seek emergency care or further treatment. --Follow-up with PCP, and in GI clinic as needed pending results of above. The following attachments cannot be sent through Care Everywhere.Upper GI Endoscopy ([facility])Colonoscopy ([facility])Acid Reflux and GERD in Adults Discharge Instructions ([facility])documented in this encounter [facility] 06-12-2023 History of Present illness Narrative Images from the original note were not included. 06/12/2023 Shayla Jara (: 1955) is a 67 y.o. female , Established patient, here for evaluation of the following chief complaint(s): Sinus Problem (Onset monday) ASSESSMENT/PLAN: 1. URI with cough and congestion - flzkzptbihpxvtu-ozjesjccaddgdff-XO 30-2-10 MG/5ML syrup; Take 5 mL by mouth 3 times daily as needed for cough or congestion for up to 10 days., Starting 06/12/2023, Until [place] 06/22/2023 at 2359, Normal - amoxicillin-clavulanate (Augmentin) 875-125 MG tablet; Take 1 tablet by mouth 2 times daily for 7 days., Starting 06/12/2023, Until Mon06/19/2023, Normal - Educated that symptoms are most likely viral and an antibiotic is not recommended at this time. Rx sent for Augmentin to have on standby if symptoms are not improving within 4-5 days- verbalized understanding. - Saline nasal spray for congestion. - Encouraged increasing oral fluids to keep mucous secretions moist. - May use Tylenol/Motrin as needed for pain relief. - Sleep with humidified air. Follow up in 3 months (on 09/13/2023) for Next scheduled follow-up. SUBJECTIVE/OBJECTIVE: HPI - Shayla presents today with concerns of sinus congestion that started about 3 days ago. She had a temperature of 99.6 F two days ago. Is also experiencing a productive cough (dark yellow) with sinus pressure/pain and a sore throat. Has been taking NyQuil OTC and Afrin nasal spray. Took a home COVID-19 test two days ago that was negative. Temperature is 98.8 F at the time of her visit and has not had any Tylenol or Motrin prior to her appointment. See ROS for additional information. Review of Systems Constitutional: Positive for chills and fever. HENT: Positive for congestion, rhinorrhea, sinus pressure, sinus pain and sore throat. Negative for ear discharge, ear pain and trouble swallowing. Respiratory: Positive for cough. Negative for chest tightness, shortness of breath and wheezing. Cardiovascular: Negative for chest pain. Vitals: 06/12/23 0938 06/12/23 0950 BP: (!) 153/76 134/86 Pulse: 90 Temp: 37.1 C (98.8 F) TempSrc: Oral SpO2: 97% Weight: 209 lb 12.8 oz (95.2 kg) Height: 5' 2 (1.575 m) Body mass index is 38.37 kg/m . Physical Exam Constitutional: General: She is not in acute distress. Appearance: She is not ill-appearing or diaphoretic. HENT: Head: Normocephalic and atraumatic. Right Ear: Tympanic membrane, ear canal and external ear normal. Left Ear: Tympanic membrane, ear canal and external ear normal. Nose: Congestion and rhinorrhea present. Rhinorrhea is clear. Right Turbinates: Swollen. Left Turbinates: Swollen. Mouth/Throat: Lips: [employer]. Mouth: Mucous membranes are moist. Pharynx: Oropharynx is clear. No pharyngeal swelling, oropharyngeal exudate or posterior oropharyngeal erythema. Tonsils: No tonsillar exudate. Cardiovascular: Rate and Rhythm: Normal rate and regular rhythm. Heart sounds: Normal heart sounds. No murmur heard. No friction rub. Pulmonary: Effort: Pulmonary effort is normal. Breath sounds: Normal breath sounds. No wheezing, rhonchi or rales. Lymphadenopathy: Head: Right side of head: No tonsillar adenopathy. Left side of head: No tonsillar adenopathy. Cervical: No cervical adenopathy. Skin: General: Skin is warm and dry. Coloration: Skin is not pale. Findings: No erythema or rash. Neurological: Mental Status: She is alert and oriented to person, place, and time. Psychiatric: Mood and Affect: Mood normal. Behavior: Behavior normal. Thought Content: Thought content normal. Judgment: Judgment normal. An electronic signature was used to authenticate this note. JULISSA Hewitt CNP 06/12/2023 9:54 AM Patient was verified by name and . documented in this encounter [facility] 06-12-2023 Telephone encounter Note Will see as scheduled. [facility] 06-12-2023 Miscellaneous Notes Will see as scheduled. S: Patient spoke with [facility] nurse regarding sinus congestion B: Onset of symptoms/concern started 3 days ago A: Patient states she is having sinus congestion that started on Monday. Had a fever on Monday. Coughing a lot at night and when gets up. Rates sinus pain as mild and has been using night quil OTC and nasal spray afrin. Ears feel full but no ear pain. Having a sore throat as well. Took COVID test on Monday and it was negative has not repeated it. Denies any shortness of breath. Patient advised to repeat COVID test and states she will, if positive will call back and let staff know prior to appointment. R: Appointment scheduled for today in office as would like to come in today at 9:40am with [place]. Will wear mask to appointment. Insurance verified. Patient given care advice per protocol. Patient understands care advice. No further needs at this time. Patient instructed to call back with new or worsening symptoms. Reason for Disposition Patient wants to be seen Protocols used: Sinus Pain or [id number] documented in this encounter [employer] 06-12-2023 Telephone encounter Note S: Patient spoke with [facility] nurse regarding sinus congestion B: Onset of symptoms/concern started 3 days ago A: Patient states she is having sinus congestion that started on Monday. Had a fever on Monday. Coughing a lot at night and when gets up. Rates sinus pain as mild and has been using night quil OTC and nasal spray afrin. Ears feel full but no ear pain. Having a sore throat as well. Took COVID test on Monday and it was negative has not repeated it. Denies any shortness of breath. Patient advised to repeat COVID test and states she will, if positive will call back and let staff know prior to appointment. R: Appointment scheduled for today in office as would like to come in today at 9:40am with [place]. Will wear mask to appointment. Insurance verified. Patient given care advice per protocol. Patient understands care advice. No further needs at this time. Patient instructed to call back with new or worsening symptoms. Reason for Disposition Patient wants to be seen Protocols used: Sinus Pain or [id number] [employer] 03-24-2023 Telephone encounter Note Message released to patient as written. Patient verbalized Understanding Patient's further questions if applicable: None Were all questions from office addressed or relayed to the patient from encounter: Yes [facility] 03-24-2023 Miscellaneous Notes Message released to patient as written. Patient verbalized Understanding Patient's further questions if applicable: None Were all questions from office addressed or relayed to the patient from encounter: Yes Left a message to return call. ----- Message from JULISSA Samuels CNP sent at 03/23/2023 4:12 PM EDT ----- Pap smear negative Left a message to return call. documented in this encounter [facility] 03-24-2023 Telephone encounter Note Left a message to return call. [facility] 03-23-2023 Telephone encounter Note ----- Message from JULISSA Samuels CNP sent at 03/23/2023 4:12 PM EDT ----- Pap smear negative Left a message to return call. [facility] 03-13-2023 History of Present illness Narrative Patient was identified by name and Date of . Patient was identified by name and Date Of . After obtaining informed consent, Immunization(s) were ordered by provider. The patient and or Family/Guardian was instructed on the benefits and risks related to the vaccine or toxoid. Information given to the patient and or Family/Guardian with signs and symptoms of adverse effects and when to seek medical attention. Site was cleansed with an alcohol swab, immunization(s) were given, and bandage(s) were applied to injection site. Patient tolerated well, advised patient and or Family/Guardian to stay in the office 20 minutes after injection has been given to observe for any reaction. Immunization(s) was given by Josseline Wilkinson MA. Images from the original note were not included. [facility] [id number] Visit type: Established Patient Reason for Visit: GERD and Medicare Annual Wellness Visit Subsequent Assessment and Plan 1. Medicare annual wellness visit, subsequent - Encouraged a healthy diet low in cholesterol and saturated fats. - Encouraged regular exercise. 2. Essential hypertension - CBC - Comprehensive metabolic panel - Stable with Losartan. Will continue current treatment plan. 3. Arthritis of left knee - CBC - Comprehensive metabolic panel 4. Class 2 obesity due to excess calories without serious comorbidity with body mass index (BMI) of 38.0 to 38.9 in adult - CBC - Comprehensive metabolic panel - Encouraged healthy diet and continuation of regular exercise. 5. Hyperlipidemia LDL goal <100 - CBC - Comprehensive metabolic panel - Lipid panel - Stable with Rosuvastatin. Will continue current treatment plan. 6. Nocturnal leg cramps - CBC - Comprehensive metabolic panel - Home care instructions provided. - Will notify of blood work results. 7. Gastroesophageal reflux disease, unspecified whether esophagitis present - CBC - Comprehensive metabolic panel - [facility] - omeprazole (PriLOSEC) [address] capsule; Take 1 capsule (40 mg) by mouth every morning (before breakfast). Do not crush or chew., Starting 03/13/2023, Normal - Will start on daily Omeprazole. Information provided in AVS on new medication. 8. Flu vaccine need - Flu vaccine quadrivalent, for patients ages 65+, (Fluad) preservative free - VIS provided in AVS. 9. Screening for colon cancer - [facility] 10. Screening for diabetes mellitus - Comprehensive metabolic panel - Will notify of blood work results. Follow up for fasting lab visit and then in 6 months for medication maintenance. Subjective HPI- Shayla presents today for her annual Medicare physical. Is not fasting today so she will return for blood work. Hyperlipidemia: Continues to take Rosuvastatin daily as prescribed. Denies myalgias. Hypertension: Takes her Losartan daily. Does not check her blood pressure at home. Her BP is stable today at 118/77. Obesity: Has been doing water aerobics three times per week. Strives for a healthy diet but knows she can work on moderation and making healthier food choices. Arthritis: Feels symptoms are stable. Will take an Extra Strength Tylenol or Naproxen and this helps if she needs it. Has been experiencing nighttime leg cramps off and on for the past couple of months. Being more sedentary seems to aggravate her symptoms. Has also been noticing worsening reflux symptoms for the past couple of months. Had an EGD in the past and was told she had a hiatal hernia. Would like to start a medication for reflux. Health Maintenance: Declines screening for Hepatitis C. Would like a flu vaccination today. Fully vaccinated for pneumonia. Vaccinated for COVID-19 (Moderna) x5 with most recent dose on 02/16/22- plans to get another booster through her local pharmacy. Tdap current: 04/09/22. Colonoscopy current: 10/25/18- due for repeat in 2023- would like a referral placed today. DEXA: 01/12/22. Is fully vaccinated for shingles. I have reviewed and reconciled the medication list with the patient today. Current Outpatient Medications Medication Sig Dispense Refill aspirin 81 MG EC tablet Take 81 mg by mouth in the morning. cholecalciferol (Vitamin D-3) 50 MCG (2000 UT) capsule Take by mouth. Cyanocobalamin 100 MCG lozenge Take by mouth. diphenhydrAMINE-acetaminophen (Tylenol PM Extra Strength) 25-500 MG per tablet Take 1 tablet by mouth every 24 hours as needed. ipratropium (Atrovent) 0.06 % nasal spray Administer 2 sprays into each nostril 3 times daily for 7 days. 15 mL 0 loratadine (Claritin) 10 MG tablet Take 10 mg by mouth in the morning. losartan (Cozaar) 50 MG tablet TAKE 1 TABLET DAILY 90 tablet 1 Naproxen Sodium 220 MG capsule Take by mouth. omega-3 (Fish Oil) 1000 MG capsule Take 3,000 mg by mouth. rosuvastatin (Crestor) 5 MG tablet TAKE 1 TABLET DAILY 90 tablet 1 omeprazole (PriLOSEC) [address] capsule Take 1 capsule (40 mg) by mouth every morning (before breakfast). Do not crush or chew. 90 capsule 1 No current facility-administered medications for this visit. There are no discontinued medications. List of current healthcare providers: Patient Care Team: Eder Sesay MD as PCP - General Over the past 2 weeks, how often have you been bothered by any of the following problems? Trouble falling or staying asleep, or sleeping too much: Several days Feeling tired or having little energy: Several days Poor appetite or overeating: Not at all Feeling bad about yourself - or that you are a failure or have let yourself or your family down: Not at all Trouble concentrating on things, such as reading the newspaper or watching television: Not at all Moving or speaking so slowly that other people could have noticed? Or the opposite - being so fidgety or restless that you have been moving around a lot more than usual.: Not at all Thoughts that you would be better off or hurting yourself in some way: Not at all Patient Health Questionnaire-9 Score: 2 Over the last 2 weeks, how often have you been bothered by any of the following problems? Feeling nervous, anxious, or on edge: Not at all Not being able to stop or control worrying: Not at all Worrying too much about different things: Not at all Trouble relaxing: Not at all Being so restless that it is hard to sit still: Not at all Becoming easily annoyed or irritable: Not at all Feeling afraid as if something awful might happen: Not at all MALCOLM-7 Total Score: 0 The following health maintenance schedule was reviewed with the patient and provided in printed form in the after visit summary: Health Maintenance Topic Date Due Mammogram 03/22/2023 Colorectal Cancer Screening 10/26/2023 COVID-19 Vaccine (6 - Moderna series) 04/10/2023 (Originally 06/18/2022) Hepatitis C Screening 08/18/2023 (Originally 08/09/1973) Depression Screening 03/13/2024 Medicare Annual Wellness (AWV) 04/12/2024 Diabetes Screening 08/16/2024 Lipid Panel 08/18/2027 DTaP/Tdap/Td Vaccines (4 - Td or Tdap) 04/09/2032 Influenza Vaccine Completed Pneumococcal Vaccine: 65+ Years Completed Zoster Vaccines Completed Bone Density Scan Completed HIB Vaccines Aged Out Hepatitis B Vaccines Aged Out IPV Vaccines Aged Out Hepatitis A Vaccines Aged Out Meningococcal Vaccine Aged Out Rotavirus Vaccines Aged Out HPV Vaccines Aged Out Orders Placed This Encounter Procedures Flu vaccine quadrivalent, for patients ages 65+, (Fluad) preservative free CBC Standing Status: Future Number of Occurrences: 1 Standing Expiration Date: 03/13/2024 Comprehensive metabolic panel Standing Status: Future Number of Occurrences: 1 Standing Expiration Date: 03/13/2024 Lipid panel Standing Status: Future Number of Occurrences: 1 Standing Expiration Date: 03/13/2024 [facility] Standing Status: Future Standing Expiration Date: 09/12/2023 Referral Priority: Routine Referral Type: Consultation Referral Reason: Specialty Services Required Requested Specialty: Gastroenterology Number of Visits Requested: 1 Health Risk Assessment: General In general, how would you say your health is?: Very good In the past 7 days, have you experienced any of the following: New or Increased Pain, New or Increased Fatigue, Loneliness, Social Isolation, Stress or Anger?: No Do you get the social and emotional suppport you need?: Yes Interventions: N/A Health Habits / Nutrition On average, how many days per week do you engage in moderate to strenous exercise (like a brisk walk)?: 3 days On average, how man minutes do you engage in exercise at this level?: 120 min Have you lost any weight without trying in the past 3 months? : No Have you seen the dentist within the past year?: Yes Interventions: N/A Hearing / Vision Do you or your family notice any trouble with your hearing that hasn't been managed with hearing aids?: No Do you have difficulty driving, watching TV, or doing any of your daily activities because of your eyesight?: No Have you had an eye exam within the past year?: Yes No results found. Interventions: N/A Safety Do you have a working smoke detector?: Yes Do you have any tripping hazards - loose or unsecured carpets or rugs?: No Do you have any tripping hazards - clutter in doorways, halls, or stairs?: No Do you have either shower bars, grab bars, non-slip mats or non-slip surfaces in your shower or bathtub? : Yes Do all your stairways have a railing or banister? : Yes Do you fasten your seatbelt when you are in a car?: Yes Interventions: N/A ADL In the past 7 days, did you need help from others to perform any of the following everyday activities: Eating, dressing, grooming,bathing, toileting, or walking / balance? : No In the past 7 days, did you need help from others to take care of any of the following: laundry, housekeeping, banking / finances,shopping, telephone use, food preparation, transportation, or taking medications? : No Interventions: N/A Living Will Do you have a living will?: Yes Interventions: N/A Cognitive: Cognitive Screening: Mini-Cog Clock Drawing Test (CDT): 2 Words Recalled: 3 Total Score: 5 Total Score Interpretation: Normal Mini-Cog Hypertension: Yes Interventions: N/A Fall Risk: 03/06/20231444 Fall Risk One or more falls in the last year: YesOne or more falls in the last year:. Yes. Data is pended. Unvalidated Patient-Reported. Taken on 03/06/231444(P) Advised to use a cane or walker to get around safely: NoAdvised to use a cane or walker to get around safely:. No. Data is pended. Unvalidated Patient-Reported. Taken on 03/06/231444(P) Feels unsteady when walking: NoFeels unsteady when walking:. No. Data is pended. Unvalidated Patient-Reported. Taken on 03/06/231444(P) Steadies self on furniture while walking at home: NoSteadies self on furniture while walking at home:. No. Data is pended. Unvalidated Patient-Reported. Taken on 03/06/231444(P) Worried about falling: NoWorried about falling:. No. Data is pended. Unvalidated Patient-Reported. Taken on 03/06/231444(P) Interventions: Home safety tips provided Depression Screening: Over the past 2 weeks, how often have you been bothered by any of the following problems? Little interest or pleasure in doing things: Not at all Feeling down, depressed, or hopeless: Not at all Patient Health Questionnaire-2 Score: 0 Over the past 2 weeks, how often have you been bothered by any of the following problems? Trouble falling or staying asleep, or sleeping too much: Several days Feeling tired or having little energy: Several days Poor appetite or overeating: Not at all Feeling bad about yourself - or that you are a failure or have let yourself or your family down: Not at all Trouble concentrating on things, such as reading the newspaper or watching television: Not at all Moving or speaking so slowly that other people could have noticed? Or the opposite - being so fidgety or restless that you have been moving around a lot more than usual.: Not at all Thoughts that you would be better off or hurting yourself in some way: Not at all Patient Health Questionnaire-9 Score: 2 If you checked off any problems on this questionnaire so far, How difficult have these problems made it for you to do your work, take care of things at home, or get along with other people?: Not difficult at all [place] Suicide Severity Rating Scale (Screener/Recent Self-Report) 1. Wish to be (Past 1 Month): No 2. Non-Specific Active Suicidal Thoughts (Past 1 Month): No 6. Suicidal Behavior (Lifetime): No Calculated C-SSRS Risk Score (Lifetime/Recent): No Risk Indicated Interventions: N/A Tobacco Use: Social History Tobacco Use Smoking Status Never Smokeless Tobacco Never Interventions: N/A Alcohol Use: Interventions: N/A Drug Use: Interventions: N/A Review of Systems Constitutional: Negative for chills and fever. HENT: Negative for hearing loss and trouble swallowing. Eyes: Negative for pain and visual disturbance. Respiratory: Negative for cough, chest tightness, shortness of breath and wheezing. Cardiovascular: Negative for chest pain, palpitations and leg swelling. Gastrointestinal: Negative for abdominal distention, abdominal pain, blood in stool, constipation and diarrhea. Endocrine: Negative for polydipsia, polyphagia and polyuria. Genitourinary: Negative for dysuria and hematuria. Musculoskeletal: Positive for arthralgias. Negative for gait problem and myalgias. Skin: Negative for color change, pallor, rash and wound. Neurological: Negative for dizziness, syncope, weakness and headaches. Hematological: Does not bruise/bleed easily. Psychiatric/Behavioral: Negative for dysphoric mood. The patient is not nervous/anxious. Immunization History Administered Date(s) Administered Covid-19, Moderna Bivalent Booster, (Age 6y-11y) 02/16/2022 Influenza, High-dose Seasonal, Quadrivalent, Preservative Free 03/23/2021 Influenza, Seasonal, Quadrivalent, Adjuvanted 03/13/2023 Influenza, Unspecified 02/28/2020, 02/16/2022 Influenza, recombinant, quadrivalent, injectable, preservative free 03/09/2019, 02/22/2020 Moderna SARS-CoV-2 Vaccination 08/26/2020, 09/23/2020, 06/03/2021, 12/10/2021 Pneumococcal Conjugate PCV20, Pf (Prevnar 20) 02/16/2022 Pneumococcal Polysaccharide PPSV23 03/09/2019 Tdap 03/20/2008, 03/29/2017, 04/09/2022 Zoster, Recombinant 06/13/2020, 11/12/2020 No Known Allergies Outpatient Medications Prior to Visit Medication Sig Dispense Refill aspirin 81 MG EC tablet Take 81 mg by mouth in the morning. cholecalciferol (Vitamin D-3) 50 MCG (2000 UT) capsule Take by mouth. Cyanocobalamin 100 MCG lozenge Take by mouth. diphenhydrAMINE-acetaminophen (Tylenol PM Extra Strength) 25-500 MG per tablet Take 1 tablet by mouth every 24 hours as needed. ipratropium (Atrovent) 0.06 % nasal spray Administer 2 sprays into each nostril 3 times daily for 7 days. 15 mL 0 loratadine (Claritin) 10 MG tablet Take 10 mg by mouth in the morning. losartan (Cozaar) 50 MG tablet TAKE 1 TABLET DAILY 90 tablet 1 Naproxen Sodium 220 MG capsule Take by mouth. omega-3 (Fish Oil) 1000 MG capsule Take 3,000 mg by mouth. rosuvastatin (Crestor) 5 MG tablet TAKE 1 TABLET DAILY 90 tablet 1 No facility-administered medications prior to visit. Past Medical History: Diagnosis Date Acute non-recurrent frontal sinusitis 09/21/2022 History of blood clot in brain 1957 Hyperlipidemia Hypertension Nausea and vomiting 06/01/2022 Viral URI with cough 06/01/2022 Social History Socioeconomic History Marital status: Tobacco Use Smoking status: Never Smokeless tobacco: Never Vaping Use Vaping Use: Never used Substance and Sexual Activity Alcohol use: Never Drug use: Never Past Surgical History: Procedure Laterality Date DILATION AND CURETTAGE OF UTERUS 1994 Past Surgical History: Procedure Laterality Date DILATION AND CURETTAGE OF UTERUS 1994 Family History Problem Relation Name Age of Onset Diabetes Mother's Sister Breast cancer Mother's Sister Cervical cancer Mother Heart disease Mother's Sister Cancer Brother Objective BP 118/77 Pulse 89 Temp 36.6 C (97.8 F) (Infrared) Resp 18 Ht 5' 2 (1.575 m) Wt 211 lb (95.7 kg) SpO2 94% BMI 38.59 kg/m Physical Exam Constitutional: General: Not in acute distress. Appearance: Not ill-appearing or diaphoretic. HENT: Head: Normocephalic and atraumatic. Right Ear: Tympanic membrane, ear canal and external ear normal. Left Ear: Tympanic membrane, ear canal and external ear normal. Nose: Nose normal. No congestion or rhinorrhea. Mouth/Throat: Mouth: Mucous membranes are moist. Pharynx: Oropharynx is clear. No oropharyngeal exudate or posterior oropharyngeal erythema. Eyes: General: No scleral icterus. Extraocular Movements: Extraocular movements intact. Pupils: Pupils are equal, round, and reactive to light. Neck: Thyroid: No thyroid mass or thyromegaly. Vascular: No carotid bruit. Cardiovascular: Rate and Rhythm: Normal rate and regular rhythm. Pulses: Normal pulses. Heart sounds: Normal heart sounds. No murmur heard. No friction rub. Pulmonary: Effort: Pulmonary effort is normal. Breath sounds: Normal breath sounds. No wheezing, rhonchi or rales. Abdominal: General: Bowel sounds are normal. Palpations: Abdomen is soft. There is no hepatomegaly, splenomegaly or mass. Tenderness: There is no abdominal tenderness. Protuberant abdomen impairing examination. Musculoskeletal: General: No deformity. Normal range of motion. Cervical back: Normal range of motion and neck supple. Right lower leg: No edema. Left lower leg: No edema. Lymphadenopathy: Cervical: No cervical adenopathy. Skin: General: Skin is warm and dry. Coloration: Skin is not jaundiced or pale. Findings: No erythema. Neurological: Mental Status: Alert and oriented to person, place, and time. Motor: No weakness. Gait: Gait normal. Psychiatric: Mood and Affect: Mood normal. Behavior: Behavior normal. Thought Content: Thought content normal. Judgment: Judgment normal. Data Reviewed Labs: Imaging/Testing: JULISSA Hewitt CNP 03/13/2023 3:45 PM documented in this encounter [facility] 01-12-2023 History of Present illness Narrative DATE OF SERVICE: 01/12/2023 PATIENT NAME: Shayla Jara : 1955 AGE: 67 y.o. CLINIC NUMBER: [id number] Visit type: Established patient Chief Complaint Patient presents with Annual Exam Zaki 11/08/2022 (ds) Subjective HISTORY OF PRESENT ILLNESS: Shayla Jara is a 67 y.o. who presents to the office for a check up. Patient was last seen here on 11/08/2022 as a new patient. Pt here for an annual exam. She was last seen here as a new patient on 11/08/2022, this is her 1st full skin exam Patient has ?h/o of ATN. Patient has ?h/o of AKs. ? Right Nasal Sidewall Patient has? personal h/o skin cancer. Had BCC on nose. Dr Jatinder Cantu in [facility] Patient has no?family h/o melanoma. History of pacemaker/ defibrillator? No History of HIV/ Hep C? No Allergies to Lidocaine, Epinephrine, Latex or Adhesive? No Social History:Occupation: Retired. Born/raised in [place]. Outdoor sports: yes. 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 Patient does use additional sun protection measures. Review of Systems There were no vitals filed for this visit. PHYSICAL EXAM: GENERAL APPEARANCE:?alert and oriented x3, well developed and well nourished. PSYCH: appropriate mood and affect DERMATOLOGY: 1. History of nonmelanoma skin cancer Nose No evidence of recurrence on exam today. Educated on signs of skin cancer, skin cancer causes, prevention, and risk of developing skin cancers in the future. Sun protection measures reviewed, recommended monthly self skin exams and annual full skin exam. 2. Sweeney angioma (2) Generalized, Right Abdomen (side) - Lower Bright red vascular papule(s) Reassured and educated, benign finding. 3. Seborrheic keratosis (3) Left Breast, Right Breast, Right Upper Back Campa-brown waxy papule(s) and plaque(s) Reassured that this is a benign lesion and does not require any treatment. Educated that if the lesion changes color, becomes larger, bleeds, becomes bothersome or painful then it should be reevaluated. Patient expresses understanding and is agreeable to plan. 4. Multiple benign melanocytic nevi of both upper extremities, both lower extremities, and trunk (6) Left 2nd Metatarsophalangeal Joint, Left Breast, Left Zygomatic Area, Right 2nd Distal Interphalangeal Joint of Toe, Right Hip (side) - Posterior, Right Upper Back Scattered uniform campa/brown nevoid papules and macules Reassured that this is a benign lesion and does not require any treatment. Educated that if the lesion changes color, becomes larger, bleeds, becomes bothersome or painful then it should be reevaluated. Patient expresses understanding and is agreeable to plan. On this date, I have spent 30 minutes reviewing previous notes, test results and face to face with the patient discussing the diagnosis and importance of compliance with the treatment plan as well as documenting on the day of the visit. Follow up in about 1 year (around 01/13/2024) for FSE. Perla Johnston PA-C 01/19/23 7:45 AM REFERRING MD: No referring provider defined for this encounter. documented in this encounter [facility] 01-12-2023 Telephone encounter Note Prescription Request: Last medication check: 08/17/22 Last physical exam: 02/16/22 Next scheduled appointment: 02/20/23 Last date of refill on this medication 08/19/22 90 days 1 refill [facility] 01-12-2023 Miscellaneous Notes Prescription Request: Last medication check: 08/17/22 Last physical exam: 02/16/22 Next scheduled appointment: 02/20/23 Last date of refill on this medication 08/19/22 90 days 1 refill documented in this encounter [facility] [place] [employer] 08-17-2022 History of Present illness Narrative Real Estate Rental Agent for Intimate and Non Intimate Exam Real Estate Rental Agent was declined Real Estate Rental Agent: na Images from the original note were not included. 08/17/2022 Shayla Jara (: 1955) is a 67 y.o. female , Established patient, here for evaluation of the following chief complaint(s): Hypertension, Hyperlipidemia, Medication Check, and Health Maintenance (Hep C--, Colon--, Hep B--talk with provider) ASSESSMENT/PLAN: 1. Hyperlipidemia LDL goal <100 - Comprehensive metabolic panel - CBC - Lipid panel - Stable with Rosuvastatin. Will continue current treatment plan. 2. Essential hypertension - Comprehensive metabolic panel - CBC - Stable with Losartan. Will continue current treatment plan. 3. Class 2 obesity due to excess calories without serious comorbidity with body mass index (BMI) of 38.0 to 38.9 in adult - Comprehensive metabolic panel - CBC - Encouraged healthy diet and regular exercise. 4. Lesion of skin of nose - [facility] Follow up in about 6 months (around 02/17/2023) for AWV and WFE. SUBJECTIVE/OBJECTIVE: ALFONSO Mcguire presents today for her 6 month follow up on her chronic health conditions. Hyperlipidemia: Continues to take Rosuvastatin daily as prescribed. Denies myalgias. Will recheck cholesterol levels today. Hypertension: Takes her Losartan daily. Does not check her blood pressure at home. Her BP is stable today at 138/82. Obesity: Has been doing water aerobics three times per week. Strives for a healthy diet but knows she can work on moderation. Has a raised scaling area on the right side of her nose and has a history of basal cell carcinoma and needed surgery to have it removed. Would like to have this looked at today. Health Maintenance: Declines screening for Hepatitis C. Flu vaccination current: 02/16/22. Fully vaccinated for pneumonia. Vaccinated for COVID-19 (Moderna) x5 with most recent dose on 02/16/22. Tdap current: 03/29/17. Colonoscopy current: 10/25/18- due for repeat in 2023. DEXA: 01/12/22. Mammogram: 03/22/22. Declines to be vaccinated for Hep B. Review of Systems Constitutional: Negative for chills and fever. Respiratory: Negative for chest tightness and shortness of breath. Cardiovascular: Negative for chest pain and leg swelling. Gastrointestinal: Negative for abdominal distention, abdominal pain and blood in stool. Skin: Negative for color change, pallor, rash and wound. Neurological: Negative for dizziness, syncope, weakness and headaches. Vitals: 08/17/22 1329 BP: 138/82 Pulse: 85 Resp: 16 SpO2: 96% Weight: 203 lb (92.1 kg) Height: 5' 2 (1.575 m) Physical Exam Constitutional: General: She is not in acute distress. Appearance: She is obese. She is not ill-appearing or diaphoretic. HENT: Nose: Neck: Vascular: No carotid bruit. Cardiovascular: Rate and Rhythm: Normal rate and regular rhythm. Pulses: Normal pulses. Heart sounds: Normal heart sounds. No murmur heard. No friction rub. Pulmonary: Effort: Pulmonary effort is normal. Breath sounds: Normal breath sounds. No wheezing, rhonchi or rales. Abdominal: General: Abdomen is protuberant. Bowel sounds are normal. Palpations: Abdomen is soft. There is no hepatomegaly, splenomegaly or mass. Tenderness: There is no abdominal tenderness. Musculoskeletal: Cervical back: Neck supple. Right lower leg: No edema. Left lower leg: No edema. Skin: General: Skin is warm and dry. Coloration: Skin is not pale. Findings: No erythema. Neurological: Mental Status: She is alert and oriented to person, place, and time. Psychiatric: Mood and Affect: Mood normal. Behavior: Behavior normal. Thought Content: Thought content normal. Judgment: Judgment normal. An electronic signature was used to authenticate this note. Quinton Bliss APRN - METAL DRILL OPERATOR 08/17/2022 2:19 PM documented in this encounter [facility] 08-17-2022 Instructions JULISSA Hewitt CNP - 08/17/2022 1:40 PM EDT [facility] Dermatology [address], [place] [address] documented in this encounter [facility] Evaluation note Diagnosis Hyperlipidemia LDL goal <100- Primary Other and unspecified hyperlipidemia Essential hypertension Unspecified essential hypertension Class 2 obesity due to excess calories without serious comorbidity with body mass index (BMI) of 38.0 to 38.9 in adult Lesion of skin of nose [facility] Diagnosis History of nonmelanoma skin cancer Sweeney angioma Seborrheic keratosis Multiple benign melanocytic nevi of both upper extremities, both lower extremities, and trunk documented in this encounter [facility]* Diagnosis Medicare annual wellness visit, subsequent- Primary Essential hypertension Unspecified essential hypertension Arthritis of left knee Class 2 obesity due to excess calories without serious comorbidity with body mass index (BMI) of 38.0 to 38.9 in adult Hyperlipidemia LDL goal <100 Other and unspecified hyperlipidemia Nocturnal leg cramps Gastroesophageal reflux disease, unspecified whether esophagitis present Flu vaccine need Screening for colon cancer Special screening for malignant neoplasms, colon Screening for diabetes mellitus [facility] Diagnosis URI with cough and congestion- Primary documented in this encounter [facility]* Diagnosis Gastroesophageal reflux disease, unspecified whether esophagitis present- Primary History of colon polyps Hiatal hernia Diaphragmatic hernia without mention of obstruction or gangrene documented in this encounter [facility]* Diagnosis Diverticulitis- Primary Diverticulitis of colon (without mention of hemorrhage) Lower abdominal pain Abdominal pain, other specified site documented in this encounter [facility]* Diagnosis Diverticulitis- Primary Diverticulitis of colon (without mention of hemorrhage) documented in this encounter [facility]* Diagnosis Hypercholesterolemia- Primary Pure hypercholesterolemia Primary hypertension Unspecified essential hypertension Class 2 obesity due to excess calories without serious comorbidity with body mass index (BMI) of 37.0 to 37.9 in adult Arthritis of left knee Gastroesophageal reflux disease, unspecified whether esophagitis present Gastro-esophageal reflux disease without esophagitis Personal history of colonic polyps Diaphragmatic hernia without obstruction or gangrene Diaphragmatic hernia without mention of obstruction or gangrene documented in this encounter [facility] note* Diagnosis Gastro-esophageal reflux disease without esophagitis Personal history of colonic polyps Diaphragmatic hernia without obstruction or gangrene Diaphragmatic hernia without mention of obstruction or gangrene documented in this encounter [facility] note* Diagnosis Multiple benign melanocytic nevi of both upper extremities, both lower extremities, and trunk Hemangioma of skin Hemangioma of skin and subcutaneous tissue Seborrheic keratosis Solar lentigo Other dyschromia Skin lesion Unspecified disorder of skin and subcutaneous tissue History of nonmelanoma skin cancer Encounter for skin care documented in this encounter [facility] note* Diagnosis Medicare annual wellness visit, subsequent- Primary Hypercholesterolemia Pure hypercholesterolemia Primary hypertension Unspecified essential hypertension Class 2 obesity due to excess calories without serious comorbidity with body mass index (BMI) of 36.0 to 36.9 in adult Arthritis of left knee Gastroesophageal reflux disease, unspecified whether esophagitis present documented in this encounter [facility] note* Diagnosis Well female exam with routine gynecological exam- Primary Routine gynecological examination Encounter for Papanicolaou smear for cervical cancer screening Screening mammogram for breast cancer documented in this encounter [facility] note* Diagnosis Sweeney angioma- Primary Neoplasm of uncertain behavior of skin Seborrheic keratosis History of nonmelanoma skin cancer Encounter for skin care documented in this encounter [facility] Discharge instructions* Attachments The following attachments cannot be sent through Care Everywhere. * Diverticulitis Discharge Instructions ([facility]) documented in this [facility] Discharge instructions* Attachments The following attachments cannot be sent through Care Everywhere. * Colonoscopy Discharge Instructions ([facility]) * Acid Reflux and Gastroesophageal Reflux Disease in Adults ([facility]) * Moderate Sedation in Adults Discharge Instructions ([facility]) * Upper GI Endoscopy Discharge Instructions ([facility] Attachments The following attachments cannot be sent through Care Everywhere. * Preventing Falls in Older Adults ([facility]) * Nocturnal (Nighttime) Leg Cramps ([facility]) * Omeprazole, ADULT ([facility]) * Flu Vaccine ([facility]) [facility] Attachments The following attachments cannot be sent through Care Everywhere. * Cervical Cancer Screening Tests ([facility] Consultation (Routine) - Pending Review Specialty Diagnoses / Procedures Referred By Aleta dodson Referred To Contact Dermatology Diagnoses Lesion of skin of nose Procedures HI OFFICE/OUTPATIENT NEW HIGH MDM 60-74 MINUTES Quinton Bliss APRN - ZARINA [address] [place] [address] [facility] Derm [address] [facility] [address] [place] [address] Referral ID Status Reason Start Date Expiration Date Visits Requested Visits Authorized [id number] Pending Review Specialty Services Required 08/17/2022 08/17/2023 1 1 [facility] for referral (narrative)* Consultation (Routine) - Pending Review Specialty Diagnoses / Procedures Referred By Aleta dodson Referred To Contact Gastroenterology Diagnoses Gastroesophageal reflux disease, unspecified whether esophagitis present Screening for colon cancer Procedures HI OFFICE/OUTPATIENT NEW [facility] 60-74 MINUTES Quinton Bliss APRN - ZARINA [address] [place] [place] [address] [facility] [address] [place] [address] Referral ID Status Reason Start Date Expiration Date Visits Requested Visits Authorized [id number] Pending Review Specialty Services Required 3 03/12/2024 1 1 [facility] [employer] Summary Purpose Family History No Family History Records Found Advance Directives No Advanced Directives Records Found Additional Source Comments Reason for Visit (unrecogniz ed section and content) Reason Comments Hypertension Hyperlipidemia Medication Check Health Maintenance Hep C--, Colon--, He p B--talk with provider Reason Comments Med Refill Reason Comments Annual Exam [facility]aki 11/08/2022 (ds) Reason Comments GERD Medicare Annual Wellness Visit [place] dodson Reason Onset Date Comments Results 03/23/2023 Reason Onset Date Comments Nasal Congestion 06/12/2023 Reason Comments Sinus Problem Onset monday Reason Comments New Patient GERD Specialty Diagnoses / Procedures Referred By Aleta dodson Referred To Contact Gastroenterology Diagnoses Gastroesophageal reflux disease, unspecified whether esophagitis present Screening for colon cancer Procedures HI OFFICE/OUTPATIENT NEW HIGH MDM 60-74 MINUTES Quinton Bliss S, [employer] PRODUC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 [address] [place] [address] [place] [address] [facility] [address] [place] [address] Referral ID Status Reason Start Date Expiration Date V isits Requested Visits Authorized [id number] Closed Specialty Services Required 03/13/2023 03/12/2024 1 1 Reason Comments Abdominal Pain Reason Onset Date Comments Colonoscopy/EGD 06/12/2023 Reason Comments Follow-up [facility] follow up 07/07/23 for Diverticulitis. Reason Onset Date Comments Release of Information 07/26/2023 Reason Comments Medication Check Having colonoscopy T hursday Hypertension Hyperlipidemia Health Maintenance Hep C- declines Specialty Diagnoses / Procedures Referred By Aleta dodson Referred To Contact Diagnoses Gastro-esophageal reflux disease without esophagitis Personal history of colonic polyps Diaphragmatic hernia without obstruction or gangrene Gastro-esophageal reflux disease without esophagitis [K21.9] Personal history of colonic polyps [Z86.010] Diaphragmatic hernia without obstruction or gangrene [K44.9] Procedures HI ESOPHAGOGASTRODUODENOSCOPY TRANSORAL DIAGNOSTIC HI COLONOSCOPY FLX DX W/COLLJ SPEC WHEN PFRMD ESOPHAGOGASTRODUODENOSCOPY and COLONOSCOPY With Possible Biopsy/ Polypectomy/ Coagulation/ Electrocautery/ Endotracheal Intubation/ Anesthesia COLONOSCOPY Misbah Waters [address] [place] [address] [facility] [address] [place] [address] Referral ID Status Reason Start Date Expiration Date Visits Re quested Visits Authorized [id number] 1 1 Reason Onset Date Comments Sutab 08/30/2023 Reason Comments Skin Check [place] 01/12/2023 ([facility]) Reason Comments Medicare Annual Wellness Visit Subsequen t Health Maintenance Derm- already sees a wholesale representative Flu- had done (02/26/2024) 7th Covid- had done 02/26/2024Mammo-agrees Blood Work Completed this magalis ng Reason Comments Gynecologic Exam Health Maintenance Derm- already sees a wholesale representative Flu- had done (02/26/2024) 7th Covid- had done 02/26/2024Mammo-agrees Reason Comments Skin Lesion ZAKI 01/19/2024 with Perla Johnston PA-C (). Care Teams (unrecognized sec tion and content) Clinical Care Coordinator Relationship Specialty Start Date End Date Eder Sesay MD [place], [place] [id number] PCP - General 08/12/20 Clinical Care Coordinator Relationship Specialty Start Date End Date Eder Sesay MD [address] [place] [id number] PCP - General 08/12/20 Clinical Care Coordinator Relationship Specialty Start Date End Date Eder Sesay MD [address] [place] [id number] PCP - General 08/12/20 Clinical Care Coordinator Relationship Specialty Start Date End Date Eder Sesay MD [address] [place] [id number] PCP - General 08/12/20 Clinical Care Coordinator Relationship Specialty Start Date End Date Eder Sesay MD [address] [place] [id number] PCP - General 08/12/20 Clinical Care Coordinator Relationship Specialty Start Date End Date Eder Sesay MD [address] [facility] [place] [address] PCP - General 08/12/20 Clinical Care Coordinator Relationship Specialty Start Date End Date Eder Sesay MD [address] [facility] [place] [address] PCP - General 08/12/20 Clinical Care Coordinator Relationship Specialty Start Date End Date Eder Sesay MD [address] [facility] [place] [address] PCP - General 08/12/20 Clinical Care Coordinator Relationship Specialty Start Date End Date Eder Sesay MD [address] [facility] [place] [address] PCP - General 08/12/20 Clinical Care Coordinator Relationship Specialty Start Date End Date Eder Sesay MD [address] [facility] [place] [address] PCP - General 08/12/20 Clinical Care Coordinator Relationship Specialty Start Date End Date Eder Sesay MD [address] [facility] [place] [address] PCP - General 08/12/20 Clinical Care Coordinator Relationship Specialty Start Date End Date Eder Sesay MD [address] [facility] [place] [address] PCP - General 08/12/20 Clinical Care Coordinator Relationship Specialty Start Date End Date Eder Sesay MD [address] [facility] [place] [address] PCP - General 08/12/20 Clinical Care Coordinator Relationship Specialty Start Date End Date Eder Sesay MD [address] [facility] [place] [address] PCP - General 08/12/20 Clinical Care Coordinator Relationship Specialty Start Date End Date Eder Sesay MD [address] [place] [phone] PCP - General 08/12/20 Clinical Care Coordinator Relationship Specialty Start Date End Date Eder Sesay MD [address] [place] [phone] PCP - General 08/12/20 Clinical Care Coordinator Relationship Specialty Start Date End Date Eder Sesay MD [address] [place] [phone] PCP - General 08/12/20 Clinical Care Coordinator Relationship Specialty Start Date End Date Eder Sesay MD [address] [place] [phone] PCP - General 08/12/20 Scheduled Active and Recently Administ ered Medications (unrecognized section and content) Medication Order 07/05/2023 07/06/2023 07/07/2023 sodium chloride 0.9 % bolus 1,000 mL (COMPLETED) 1,000 mL, IntraVENous, at 1,000 mL/hr, Administer over 1 Hours, Once, On Mon07/07/23 at 1120, For 1 dose 1135 (New Bag - Prov ider: Kim Olivia RN)[id number] (Stopped - Provider: Kim Olivia RN) INFORMATION SOURCE (unrecogn ized section and content) DATE CREATED AUTHOR 03/24/2024 [facility] FOR RECORDS PERTAINING TO PATIENTS WHO ARE OR HAVE BEEN ENROLLED IN A CHEMICAL DEPENDENCY/SUBSTANCEABUSE PROGRAM, SOME INFORMATION MAY BE OMITTED. This clinical summary was aggregated from multiple sources. Caution should be exercised in using it in the provision of clinical care. This summary normalizes information from multiple sources, and as a consequence, information in this document may materially change the coding, format and clinical context of patient data. In addition, data may be omitted in some cases. CLINICAL DECISIONS SHOULD BE BASED ON THE PRIMARY CLINICAL RECORDS. [facility]. provides no warranty or guarantee of the accuracy or completeness of information in this document.
== END | disposition home or self-care (01) ==
LOC: OPBI 15:43
PROVIDERS: PCP Family Medicine; Referring Provider Registered Nurse; Visit Provider Registered Nurse
DX: Z12.31 Encounter for screening mammogram for malignant neoplasm of breast (principal)
CPT/HCPCS: 77063; 77067

== ENCOUNTER → 2025-04-02 | Outpatient (CLI) | payer MEDICARE, OTHER, SELFPAY ==
--- NOTE | 2025-04-02 14:52 | BI_ITS ---
EXAM: BI/SCRN MAMM (CAD)W/WAGNER BILAT
== END | disposition home or self-care (01) ==
LOC: OPBI 14:51
PROVIDERS: PCP Family Medicine; Referring Provider Registered Nurse; Visit Provider Registered Nurse
DX: Z12.31 Encounter for screening mammogram for malignant neoplasm of breast (principal)
CPT/HCPCS: 77063; 77067